=== PATIENT | female | born 1960 | race Caucasian/White ===

== ENCOUNTER 2019-01-17 10:18 | Inpatient (IN) ==
--- NOTE | 2019-01-17 09:43 | Anesthesia Evaluation PreOp ---
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: Other (chronic back pain) Other Medical History: GERD, Other (scleroderma, H/O breasr CA S/P right mastectomy with lymph nodes/chemo) Anesthesia History: No Prior Anesthetic Complications, Past Anesthesia Alcohol Use: occasionally Drug use: none Medications and Allergies Albuterol Sulfate [Proair Hfa] 2 puff IH Q6H PRN 09/13/18 [History] Aspirin [Lo-Dose Aspirin EC] 81 mg PO DAILY 09/13/18 [History] Beclomethasone Dip 40mcg REDIH [Qvar 40 Mcg Redihaler] 1 puff IH BID 09/13/18 [History] Diltiazem HCl [Diltiazem 24Hr Cd] 180 mg PO DAILY 09/13/18 [History] Omeprazole [PriLOSEC] 40 mg PO DAILY 09/13/18 [History] Oxycodone HCl/Acetaminophen [Percocet 10-325 mg Tablet] 1 each PO Q6H PRN 09/13/18 [History] Tizanidine HCl [Zanaflex] 4 mg PO TID PRN 09/13/18 [History] Nicotine Polacrilex [Nicorelief] 1 piece gum PO AD PRN 12/31/18 [History] Azithromycin [Azithromycin 6-Tab Pack] 250 mg PO PER PKG DI #6 tab 01/09/19 [Rx] predniSONE [PredniSONE] 10 mg PO DAILY #21 tablet 01/09/19 [Rx] Allergy/AdvReac Type Severity Reaction Status Date / Time Penicillins AdvReac Rash Verified 01/17/19 11:27 - Meds/Allergy Pre-op Review Medications Reviewed: Yes Allergies Reviewed: Yes Beta Blockers on Current Med List: No Anesthesia Results - Labs Laboratory Tests 12/18/18 01/07/19 01/07/19 10:51 19:37 19:39 WBC 14.1 H Hgb 12.5 Hct 38.9 Plt Count 211 PT 11.3 INR 1.0 Sodium 136 Potassium 3.8 BUN 12 Creatinine 0.72 - Imaging Additional studies: 12/18/[address] IMPRESSION: Successful CT guided core biopsy left lower lobe lung 10/23/[address] IMPRESSION: 1. Increasing size of a part solid part cavitary nodule in the left lower lobe measuring 12 x 7 mm, previously 9 x 7 mm. There has also been slight interval increase in size of right lower lobe lateral pulmonary nodular opacity measuring up to 9 mm. Although an infectious process could be a possibility, neoplasm should be excluded. 2. Otherwise stable subcentimeter right pulmonary nodules. 3. Persistent dilated and fluid-filled esophagus. The findings were sent to the Radiology Results Communication [facility] at 3:50 pm on 10/23/2018 to be communicated to a licensed caregiver. 09/13/2018 RIGHT HEART CATH Indications: Pulmonary Hypertension Impressions: Normal right heart pressures noted. Normal cardiac output noted. Recommendations: Optimal medical therapy of patient's disease. Aggressive risk factor modification. 05/22/2018 [facility] ECG showed normal sinus rhythm TTE: EF 60%, MG 10, no AI----post-op TTE showed EF 60%, 10 mmHg, no PVL 01/12/2018 LEN Impressions: LVEF 60-65%. Normal LV size and function. Right ventricle was normal in size and systolic function. Moderately calcified, trileafet aortic valve. Partial fusion of the right and left cusps. Incomplete coaptation of leaflets noted. Severe aortic regurgitation. PHT not well obtained. 12/15/2017 Echo Impressions: LVEF 60-65%. Normal LV chamber size, wall thickness and function. Mild left ventricular diastolic dysfunction. Normal right ventricular structure and function. Grossly, moderately calcified aortic valve leaflets. Number of leaflets cannot be determined. Probable severe aortic regurgitation. Moderate aortic stenosis. Mean gradient 33 mmHg. Unable to estimate RVSP due to lack of TR jet. Consider further evaluation of aortic valve if clinically indicated. Aortic Valve Peak José: 3.99 m/sec Mean José: 2.63 m/sec Peak Grad: 64.00 mmHg Mean Grad: 32.33 mmHg Valve Area: 1.08 cm2 AI pressure Half-time: 226.00 msec Anesthesia Exam O2 Sat Height 1.52 m Height 1.52 m Weight 42.638 kg Weight 42.638 kg O2 Sat by Pulse Oximetry 98 O2 Sat by Pulse Oximetry 98 Vital Signs Temp Pulse Resp BP Pulse Ox 98.6 F 89 16 142/70 98 01/17/19 10:58 01/17/19 10:58 01/17/19 10:58 01/17/19 10:58 01/17/19 10:58 Height: 5' Weight: 94 lbs NPO (# of Hours): 8 Pain Scale: 0 Pain Scale Used: Numeric (1 - 10) - HEENT Pupil (Motor): EOMI Mallampati: II Teeth: Normal, Missing Oral Opening: Greater than 3 - EDGE BURN[place]ER UPPERS LOC: Oriented EDGE [place]URN[place] UPPERS Motor: Normal RUE, Normal LUE, Normal RLE, Normal LLE, Normal Face EDGE [place]URN[place] UPPERS Sensory: Normal: RUE, LUE, RLE, LLE, Face - Cardiac Rhythm: Regular Murmur: Systolic - Pulmonary Breath Sounds: bilateral Clear Respiratory Effort: Symmetrical Anesthesia Assess/Plan ASA Score: 3 Level of consciousness: Cooperative, Oriented, Tranquil Anesthetic Plan: General Monitoring Plan: Standard Monitors Recovery Plan: PACU
[2019-01-17] MEDS ORDERED: *HR* Propofol 200 MG/20 ML VIAL IVP ONE (10:33)
[2019-01-17] MEDS ORDERED: *HR* FentaNYL (PF) 100 MCG/2 ML VIAL ONE (10:33)
[2019-01-17] MEDS ORDERED: *HR* Midazolam HCl 2 MG/2 ML VIAL ONE (10:33)
[2019-01-17] MEDS ORDERED: *HR* Rocuronium Bromide 50 MG/5 ML VIAL ONE ×2 (10:35→14:15)
[2019-01-17] MEDS ORDERED: *HR* Succinylcholine 200 MG/10 ML VIAL IVP ONE (10:35)
[2019-01-17] MEDS ORDERED: Ondansetron 4 MG/2 ML VIAL ONE (10:35)
[2019-01-17] MEDS ORDERED: Lidocaine -MPF 4% 5 ML AMPUL ONE ×2 (10:35→13:30)
[2019-01-17] MEDS ORDERED: Lidocaine -MPF 2% 2 ML VIAL ONE (10:35)
[2019-01-17] MEDS ORDERED: Dexamethasone 4 MG/ML VIAL ONE (10:35)
[2019-01-17] MEDS ORDERED: Ketorolac 30 MG/ML VIAL ONE (10:37)
[2019-01-17] MEDS ORDERED: Albuterol 2.5 MG/3 ML NEBULIZER IH ONE (10:40)
[2019-01-17] MEDS ORDERED: Clindamycin 600 MG/50 ML 600 MG/50 ML IV.SOLN IVPB ONE (10:45)
[2019-01-17] MEDS ORDERED: Ringers Solution, Lactated 1,000 ML IVC SCH (10:45)
[2019-01-17] MEDS ORDERED: *HR* OxyCODONE Immed Rel 5 MG TABLET PO PRN (11:58)
[2019-01-17] MEDS ORDERED: *HR* Promethazine 25 MG/ML VIAL IVP PRN (11:58)
[2019-01-17] MEDS ORDERED: Ondansetron 4 MG/2 ML VIAL IVP ONE (11:58)
--- NOTE | 2019-01-17 12:22 | History & Physical Report ---
Date of Encounter: 01/17/19 Time of Encounter: 12:21 24 Hour HP Update - Instructions Instructions: If the History and Physical is less than 30 days old and was completed prior to A.M. admission and or procedure and has NOT been updated on calendar day of procedure please complete this update prior to performing procedure. - Update Patient reports changes in Medical Condition: No Changes in examination, assessment, or condition: No Changes in Medication: No Preop tests/diagnostics Reviewed: Yes Pre-Op MRSA Screen: Negative Surgery Remains Indicated: Yes Consent for Planned Operative Procedure(s) Verified: Yes - Pre-Operative Checklist Preoperative Checklist Indicated: Yes Prophylactic Antibiotic Ordered: Yes Home Medications Include Beta Jonathan: No Beta Jonathan Taken Today (Day of Surgery): No Beta Jonathan Taken Yesterday (Day Prior to Surgery): No Is VTE Prophylaxis Indicated?: Yes
[2019-01-17] MEDS: *HR* HYDROmorphone (PF) 1 MG/ML SYRINGE IVP PRN ×5 (15:35→20:36)
--- NOTE | 2019-01-17 15:43 | Operative Note ---
Date of procedure: 01/17/19 Pre-op diagnosis: lung mass Post-op diagnosis: other (nec granuloma) Procedure: bronch with aspi, robotic decortication, lower lobectomy, lymph node dissection, wedge resection upper lobe x 3 Anesthesia: GETA Surgeon: Raheem Kumar Was there an training and development assistant present: No Estimated blood loss (cc): 75 Specimen: lower lobe, wedge upper lobe x 3, nodes Condition: stable Disposition: PACU Procedure in Detail: The patient was brought to the operating room and placed on the operating table in the supine position. After undergoing general anesthesia bronchoscopy was performed and thick copious secretions aspirated from the tracheobronchial tree until clear. The mucosa throughout the tracheobronchial tree was pink. There were no endoluminal masses or extrinsic compression of the trachea kota mainstem lobar or segmental bronchi. Patient was placed on the operating room table in the right lateral decubitus position with care to pad all pressure points, prepped with DuraPrep, and draped in usual sterile fashion. Thoracoscopy ports were placed and 50% of the case was used to take down and perform a decortication of the left upper and lower lobe off the chest wall mediastinum diaphragm and aorta. The pulmonary artery vein bronchus and fissure completed in sequence and the lobectomy removed from the accessory port. Lymph node dissection was performed including nodes 8 910 and 12. The centrally located mass within the left lower lobe demonstrated necrotizing granulomatous disease frozen section. Hemostasis and hemostasis were good. Paravertebral nerve blocks were performed. We wedge resections of the left upper lobe performed with the endothoracic stapler due to visceral pleura was denuded and small lacerations within the left upper lobe due to the dense adhesions within the chest during the decortication and the friable nature of the anal the/emphysematous lung tissues. A 28-Filipino chest tube placed through the most anterior thoracoscopy port the da Giovani robot was de-docked. Remaining incisions closed with 0 Vicryl and 4-0 Monocryl subcuticular stitches with dressings consisting of Steri-Strips and sterile gauze. Patient was extubated and taken to the recovery room.
[2019-01-17] MEDS ORDERED: Azithromycin 250 MG TABLET PO ONE (16:44)
[2019-01-17] MEDS ORDERED: *HR* HYDROcodone/Acet 5/325 mg TABLET PO PRN (16:44)
[2019-01-17] MEDS ORDERED: Ondansetron 4 MG/2 ML VIAL IVP PRN (16:44)
[2019-01-17] MEDS ORDERED: Naloxone 0.4 MG/ML INJ IVP PRN (16:44)
--- NOTE | 2019-01-17 16:53 | Anesthesia Evaluation Post Op ---
Date of Encounter: 01/17/19 Time of Encounter: 16:33 - Vital Signs Vital Signs: Vital Signs/O2 Sat, Most Current Temp Pulse Resp BP Pulse Ox 98.4 F 74 16 130/66 96 01/17/19 16:30 01/17/19 16:30 01/17/19 16:30 01/17/19 16:30 01/17/19 16:30 - Lungs Lungs: Clear Ascult./Percussion - Airway Airway: Non-obstructed - Cardiovascular Regular Rate - Mental Status Mental Status: Alert & Oriented, Answers Appropriately - Pain Pain Scale: 3 Pain Scale used: Numeric (1 - 10) - Nausea Vomiting Nausea Vomiting: Not Present - Hydration Hydration: Ice chips, Has not voided - Discharge PostOp Status: Transfer Patient to floor
[2019-01-17] MEDS: 0.9 % Sodium Chloride 1,000 ML IVC SCH (17:00)
[2019-01-17] MEDS: Ketorolac 15 MG/ML VIAL IVP SCH (17:32)
[2019-01-17] MEDS: Ipratropium/Albuterol Neb 3 ML IH SCH ×3 (20:02→23:23)
[2019-01-17] MEDS: Sennosides/Docusate Sodium TABLET PO SCH (21:45)
[2019-01-17] MEDS: Gabapentin 300 MG CAPSULE PO SCH (21:45)
[2019-01-17] MEDS: Famotidine 20 MG TABLET PO SCH (21:45)
[2019-01-17] MEDS: *HR* OxyCODONE/APAP 10/325 TABLET PO PRN (22:10)
[2019-01-17] MEDS: *HR* Heparin 5,000 UNIT/ML VIAL SQ SCH (22:14)
[2019-01-18] MEDS: Ketorolac 15 MG/ML VIAL IVP SCH ×5 (00:19→23:59)
[2019-01-18] MEDS: *HR* OxyCODONE/APAP 10/325 TABLET PO PRN ×4 (03:13→19:42)
[2019-01-18] MEDS: *HR* HYDROmorphone (PF) 1 MG/ML SYRINGE IVP PRN ×5 (03:32→21:32)
[2019-01-18] MEDS: Ipratropium/Albuterol Neb 3 ML IH SCH ×6 (04:47→23:27)
[2019-01-18] MEDS: 0.9 % Sodium Chloride 1,000 ML IVC SCH (06:16)
[2019-01-18] MEDS: *HR* Heparin 5,000 UNIT/ML VIAL SQ SCH ×3 (06:22→21:28)
[2019-01-18 06:52] LABS: Hematocrit 31.2 % (35.3-44.9); Hemoglobin 9.8 g/dL (11.5-15.4); Mean Corpuscular HGB Conc 31.4 g/dL (31.6-35.5); Mean Corpuscular Hemoglobin 29.5 pg (28.0-33.3); Mean Platelet Volume 10.3 fL (9.4-12.4); Platelet Count 188 K/mcL (140-400); Red Blood Count 3.32 M/mcL (3.82-4.97); White Blood Count 19.8 K/mcL (4.3-11.1)
[2019-01-18 07:42] LABS: BUN/Creatinine Ratio 24 (6-26); Blood Urea Nitrogen 18 mg/dL (6-20); Calcium 8.1 mg/dL (8.6-10.3); Carbon Dioxide 22 mEq/L (23-29); Chloride 106 mEq/L (98-107); Glucose 220 mg/dL (70-105); Magnesium 1.9 mg/dL (1.6-2.6); Osmolality,Calculated 293 (280-300); Potassium 4.1 mEq/L (3.5-5.1); Sodium 137 mEq/L (136-145); eGFR For African Americans > 60 (> 60); eGFR For Non-African Americans > 60 (> 60)
[2019-01-18] MEDS: amLODIPine 5 MG TABLET PO SCH (08:07)
[2019-01-18] MEDS: Famotidine 20 MG TABLET PO SCH ×2 (08:07→21:27)
[2019-01-18] MEDS: Sennosides/Docusate Sodium TABLET PO SCH ×2 (08:07→21:27)
[2019-01-18] MEDS: Gabapentin 300 MG CAPSULE PO SCH ×3 (08:07→21:27)
[2019-01-18] MEDS: Aspirin Enteric Coated 81 MG Tablet PO SCH (08:07)
[2019-01-18] MEDS: Diltiazem CD (24hr) 180 MG CAPSULE PO SCH (08:07)
--- NOTE | 2019-01-18 10:48 | Cardiothoracic Progress Note ---
Date of Encounter: 01/18/19 Time of Encounter: 10:47 - Assessment and plan (1) Histoplasmosis Current Visit: Yes Status: Acute The assessment and plan as outlined above was discussed with the patient and/or family members who expressed understanding and agreement. All questions were answered. updated family. continue chest tube to suction replace mg (2) Essential hypertension Current Visit: No Status: Chronic The assessment and plan as outlined above was discussed with the patient and/or family members who expressed understanding and agreement. All questions were answered. continue home meds (3) Chronic pain Current Visit: No Status: Chronic The assessment and plan as outlined above was discussed with the patient and/or family members who expressed understanding and agreement. All questions were answered. increase meds from baseline. Qualifiers: Chronic pain type: chronic pain syndrome Qualified Code(s): G89.4 - Chronic pain syndrome (4) Depression Current Visit: No Status: Chronic The assessment and plan as outlined above was discussed with the patient and/or family members who expressed understanding and agreement. All questions were answered. Qualifiers: Depression Type: unspecified Qualified Code(s): F32.9 - Major depressive disorder, single episode, unspecified - Subjective Interval history: pain Vital Signs, Last 4 Hours Temp Pulse Resp BP Pulse Ox 01/18/19 08:20 90 01/18/19 07:26 16 98 01/18/19 07:22 99.0 F 87 18 124/71 97 Oxgyen Flow Rate Oxygen Flow Rate (LPM) 2 Clinical Data, last 8 Hours Output, Chest Tube Drainage 0 Amount [Left Lateral Chest #1] Output, Chest Tube Drainage 0 Amount [Left Lateral Chest #1] Output, Urine Amount 200 Output, Urine Amount 500 Weight 01/16/19 01/17/19 01/18/19 23:59 23:59 23:59 Weight 42.638 kg 52.5 kg - Physical Examination General: Conversant, No Apparent Distress, Well developed HEENT: Atraumatic, Normocephaly Cardiac: Reg Rate and Rhythm, Normal S1 and S2, No Murmur Incision: No signs of infection, Dry/intact dressing Chest tubes: Minimal drainage, Air leak Lungs: Decreased breath sounds Neuro: Alert and responsive, No focal deficits noted Abdomen: Soft, Other (scant bs ) - Labs 01/18/19 06:25 01/18/19 06:25 Lab Results, Last 24 hours 01/18/19 01/18/19 06:25 06:25 WBC 19.8 H Hgb 9.8 L Hct 31.2 L Plt Count 188 Sodium 137 Potassium 4.1 Chloride 106 Carbon Dioxide 22 L BUN 18 Creatinine 0.76 Glucose 220 H Calcium 8.1 L Magnesium 1.9 - Imaging Chest Xray: image reviewed Consult Discharge Plan - Plan Additional Instructions: Please go to Out Patient testing on 2018 around 800AM to get an x-ray done before you go see Dr. Kumar. The office is sending the order over to out patient testing at the [facility]. Referrals: Raheem Kumar MD [Partnered Physician] - 02/18/19 9:15 am Christina Cazares MD [Primary Care Provider] - 01/29/19 10:30 am
[2019-01-19] MEDS: Ipratropium/Albuterol Neb 3 ML IH SCH ×6 (04:03→23:26)
[2019-01-19] MEDS: *HR* OxyCODONE/APAP 10/325 TABLET PO PRN ×4 (04:05→23:55)
[2019-01-19] MEDS: Ketorolac 15 MG/ML VIAL IVP SCH ×4 (06:02→18:12)
[2019-01-19] MEDS: *HR* Heparin 5,000 UNIT/ML VIAL SQ SCH ×2 (06:05→16:44)
--- NOTE | 2019-01-19 08:18 | Cardiothoracic Progress Note ---
Date of Encounter: 01/19/19 Time of Encounter: 08:16 - Assessment and plan (1) Chronic pain Current Visit: No Status: Chronic The assessment and plan as outlined above was discussed with the patient and/or family members who expressed understanding and agreement. All questions were answered. We will leave the chest tube in throughout the weekend. Qualifiers: Chronic pain type: chronic pain syndrome Qualified Code(s): G89.4 - Chronic pain syndrome - Subjective Interval history: The patient complains of mild postoperative pain. Vital Signs, Last 4 Hours Temp Pulse Resp BP Pulse Ox 01/19/19 08:06 98.2 F 82 18 127/72 99 01/19/19 08:01 16 95 Oxgyen Flow Rate Oxygen Flow Rate (LPM) 2 Clinical Data, last 8 Hours Output, Chest Tube Drainage 10 Amount [Left Lateral Chest #1] Output, Urine Amount 250 Output, Urine Amount 200 Weight 01/17/19 01/18/19 01/19/19 23:59 23:59 23:59 Weight 42.638 kg 52.5 kg Lungs are clear to percussion and auscultation. Heart is in a normal sinus rhythm. Chest tube drainage is minimal, but there is a small air leak. All incisions are healing well without signs of infection. - Labs 01/18/19 06:25 01/18/19 06:25 Consult Discharge Plan - Plan Additional Instructions: Please go to Out Patient testing on 2018 around 800AM to get an x-ray done before you go see Dr. Kumar. The office is sending the order over to out patient testing at the [facility]. Referrals: Raheem Kumar MD [Partnered Physician] - 02/18/19 9:15 am Christina Cazares MD [Primary Care Provider] - 01/29/19 10:30 am
[2019-01-19] MEDS: Aspirin Enteric Coated 81 MG Tablet PO SCH (08:41)
[2019-01-19] MEDS: Diltiazem CD (24hr) 180 MG CAPSULE PO SCH (08:41)
[2019-01-19] MEDS: Sennosides/Docusate Sodium TABLET PO SCH ×2 (08:41→19:53)
[2019-01-19] MEDS: amLODIPine 5 MG TABLET PO SCH (08:41)
[2019-01-19] MEDS: Famotidine 20 MG TABLET PO SCH ×2 (08:41→19:53)
[2019-01-19] MEDS: Gabapentin 300 MG CAPSULE PO SCH ×3 (08:41→19:53)
[2019-01-19] MEDS: *HR* HYDROmorphone (PF) 1 MG/ML SYRINGE IVP PRN ×2 (08:53→15:12)
[2019-01-19] MEDS ORDERED: Furosemide 20 MG/2 ML VIAL IVP ONE (18:47)
[2019-01-19] MEDS: ALPRAZolam 0.5 MG TABLET PO PRN (19:53)
[2019-01-20] MEDS: *HR* Heparin 5,000 UNIT/ML VIAL SQ SCH ×4 (00:01→22:50)
[2019-01-20] MEDS ORDERED: Albuterol 2.5 MG/3 ML NEBULIZER IH PRN (01:39)
[2019-01-20 02:16] LABS: Basophils % 0.1 %; Eosinophils # 0.6 K/mcL (0.0-0.6); Eosinophils % 2.2 %; Hematocrit 24.8 % (35.3-44.9); Immature Granulocytes % 0.8 % (0-4); Lymphocytes # 2.3 K/mcL (0.6-4.6); Lymphocytes % 8.7 %; Mean Corpuscular HGB Conc 31.9 g/dL (31.6-35.5); Mean Corpuscular Hemoglobin 29.4 pg (28.0-33.3); Mean Corpuscular Volume 92.2 fL (83.0-100.0); Mean Platelet Volume 10.3 fL (9.4-12.4); Monocytes # 0.8 K/mcL (0.0-1.3); Monocytes % 3.2 %; Neutrophils # 22.4 K/mcL (1.6-8.9); Platelet Count 176 K/mcL (140-400); Red Blood Count 2.69 M/mcL (3.82-4.97); Red Cell Distribution Width 14.7 % (11.5-14.5); White Blood Count 26.4 K/mcL (4.3-11.1)
[2019-01-20 02:17] LABS: Hemoglobin 7.9 g/dL (11.5-15.4)
--- NOTE | 2019-01-20 02:18 | Internal Medicine Consult Note ---
Date of Encounter: 01/20/19 Time of Encounter: 02:11 - Assessment and Plan (1) Acute hypoxemic respiratory failure Current Visit: Yes Status: Acute Assessment and plan: 1. Move patient to ICU. 2. Start BiPap trial and proceed with intubation if she fails. 3. Aerosols, oxygen, and suctioning as needed. 4. Continue chest tube to suction. 5. Consult pulmonary. 6. Discussed with Dr. Buckley. (2) Pneumonia Current Visit: Yes Status: Acute Assessment and plan: 1. Blood and sputum cultures ordered. 2. Start Vancomycin and Levaquin. 3. Aerosols, mucomyst, oxygen supplementation as above. 4. BiPap support followed by intubation if necessary. Qualifiers: Pneumonia type: due to unspecified organism Laterality: right Lung location: middle lobe of lung Qualified Code(s): J18.1 - Lobar pneumonia, unspecified organism (3) Current chronic use of systemic steroids Current Visit: Yes Status: Acute Assessment and plan: 1. Will add Solumedrol for stress dose steroids; wean once patient improves and stabilizes. 2. Resume home dose of prednisone after weaning off Solumedrol. (4) DVT prophylaxis Current Visit: Yes Status: Acute Assessment and plan: 1. Heparin SQ. 2. EPCD's. Internal Medicine - CN: HPI - Data of Consult Requesting Physician: Raheem Kumar MD - Consult Narrative History of present illness: Ms. Tran is a 58 year old female who is 2-1/2 days postop from left lower lobe lobectomy for suspected lung cancer. I was contacted by Dr. Buckley to see patient regarding hypoxemia and respiratory distress. Upon my assessment of the patient, she is on 100% nonrebreather face mask with O2 sats running between 80- 90%. Her oxygen levels drop precipitously and then take a significant amount of time to recover. She is coughing vigorously. She is not wheezing. On auscultation, she has significant crackles, predominantly in the right base. She has some labored breathing. Chest tube is in place and on suction. I reviewed her x-ray, and I am suspicious that she has a right middle and right lower lobe pneumonia. She already received 1 dose of Lasix with over 500 mL of urine output. Despite the Lasix and urine output, she continues to desaturate. Because of worsening respiratory status, concern for pneumonia both clinically and radiographically, and failure to improve with oxygen supplementation, I am moving her to the intensive care unit for closer monitoring and care. I called and spoke with Dr. Buckley about placing her on BiPAP versus intubation given her recent lobectomy. He agreed with my plan to proceed with BiPAP and then intubation if necessary. Patient is therefore moving to the ICU for ongoing care and management. Past Med Surg Social Fam HX - Past Medical History Attestation: Yes The following information was validated with the patient. Source: patient, obtained from family Medical history: arthritis, cancer, COPD, GERD, hypertension, valvular heart disease Psychiatric history: anxiety, depression - Past Surgical History Surgical History: breast surgery, heart valve replacement, hysterectomy, orthopedic, other - Social History Smoking Status: Current every day smoker Packs per day: 2 Smokeless Tobacco Status: No Alcohol use: occasionally Drug use: none Current living situation: Home, With Family Activity Level: Independent ambulation Recent Out of Country Travel Within the Last 8 Weeks: No - Family History Mother History Unknown: Yes Father History Unknown: Yes - Constitutional Constitutional: fatigue, no chills, no fever(s) - EENT Ears: no ear pain Nose, mouth and throat: no nasal congestion, no sore throat - Cardiovascular Cardiovascular ROS IM: palpitations, no chest pain - Respiratory Respiratory: cough, dyspnea, chest congestion, change in phlegm color, no hemop tysis - Gastrointestinal Gastrointestinal: no abdominal pain, no diarrhea, no hematemesis, no hematochezia, no melena, no vomiting - Genitourinary Genitourinary: no dysuria, no flank pain - Musculoskeletal Musculoskeletal ROS IM: no arthralgias, no back pain - Integumentary Integumentary IM: no rash, no jaundice - Neurological Neurological ROS: no focal weakness, no headache(s) - Endocrine Endocrine IM: no polyphagia, no polyuria Internal Medicine - CN: Meds Albuterol Sulfate [Proair Hfa] 2 puff IH Q6H PRN 09/13/18 [History] Aspirin [Lo-Dose Aspirin EC] 81 mg PO DAILY 09/13/18 [History] Omeprazole [PriLOSEC] 40 mg PO DAILY 09/13/18 [History] Oxycodone HCl/Acetaminophen [Percocet 10-325 mg Tablet] 1 each PO Q6H PRN 09/13/18 [History] Tizanidine HCl [Zanaflex] 4 mg PO HS PRN 09/13/18 [History] Azithromycin [Azithromycin 6-Tab Pack] 250 mg PO PER PKG DI #6 tab 01/09/19 [Rx] predniSONE [PredniSONE] 10 mg PO DAILY #21 tablet 01/09/19 [Rx] Amlodipine Besylate 5 mg PO QAM 01/17/19 [History] Dexlansoprazole [Dexilant] 60 mg PO DAILY 01/17/19 [History] Diltiazem HCl [Tiazac] 180 mg PO QAM 01/17/19 [History] Escitalopram [Lexapro] 20 mg PO DAILY 01/17/19 [History] Meclizine HCl [Verticalm] 25 mg PO PRN PRN 01/17/19 [History] Tiotropium [place] [Spiriva Respimat] 2 puff PO DAILY 01/17/19 [History] Allergy/AdvReac Type Severity Reaction Status Date / Time Penicillins AdvReac Rash Verified 01/17/19 11:27 Hospitalist - CN: Exam - Constitutional Vitals: Temp Pulse Resp BP Pulse Ox 98.4 F 95 17 140/78 89 01/19/19 23:44 01/19/19 23:44 01/19/19 23:44 01/19/19 23:44 01/19/19 23:44 General appearance IM: Present: cooperative, mild distress (mild to moderate re spiratory distress), A&O X 3, pleasant, answers questions appropriately Exam: labored breathing - Head Head exam: Present: atraumatic, normal inspection - Eye Eye exam: Present: PERRL. Absent: scleral icterus - ENT ENT exam: Present: mucous membranes dry, normal exam - Neck Neck exam general surgery: Present: supple, trachea midline. Absent: tenderness, nuchal rigidity, thyromegaly - Respiratory Respiratory exam: Present: accessory muscle use, rales (right base), respiratory distress, rhonchi, tachypnea. Absent: chest wall tenderness, wheezes - Cardiovascular Cardiovascular exam IM: Present: distant heart sounds, +S1, +S2, systolic murmur, tachycardia. Absent: diastolic murmur - GI/Abdominal GI/Abdominal exam IM: Present: normal bowel sounds, soft. Absent: hepatomegaly, mass, splenomegaly, tenderness - Extremities Exam Extremities exam IM: Present: full ROM, normal capillary refill, warm, radial pulses palpable and symmetrical. Absent: calf tenderness, joint swelling, pedal edema, tenderness - Back Exam Back exam: Absent: CVA tenderness (L), CVA tenderness (R) - Neurological Exam Neurological exam: Present: alert, CN II-XII intact, oriented X3, no focal defi cits, strengths equal and symetr throughout - Psychiatric Psychiatric exam: Present: normal affect, normal mood - Skin Skin exam IM: Present: dry, intact, warm Internal Medicine - CN: Reslt - Labs CBC & Chem 7: 01/18/19 06:25 01/18/19 06:25 - Impressions Impressions Chest X-Ray 01/19/19 19:12 IMPRESSION: 1. Vascular engorgement and cephalization is demonstrated with bilateral peribronchial cuffing and perivascular haziness. 2. New hazy alveolar density mid lower right lung and left parahilar region and left lung base concerning for infiltrate correlating with congestive heart failure or pneumonitis. 3. Left pleural effusion versus chronic pleural thickening. 4. Postsurgical sequela left lung and heart. 5. Calcific atherosclerotic disease aorta. 6. Stable left pleural catheter with no appreciable pneumothorax. D/ / Tanner Carlton / Tanner Carlton Interpreting Provider: Tanner Carlton - Diagnostic Studies Chest x-ray Status: image reviewed by me (suspect RML/RLL infiltrate) Consult Discharge Plan - Plan Additional Instructions: Please go to Out Patient testing on 2018 around 800AM to get an x-ray done before you go see Dr. Kumar. The office is sending the order over to out patient testing at the main hospital. Referrals: Raheem Kumar MD [Partnered Physician] - 02/18/19 9:15 am Christina Cazares MD [Primary Care Provider] - 01/29/19 10:30 am
[2019-01-20 02:19] LABS: ABG Base Excess 0 mEq/L (-2 to 3); ABG HCO3 25 mEq/L (21-27); ABG Oxygen Saturation 83 % (95-98); ABG PCO2 46 mmHg (35-45); ABG PH 7.35 pH Units (7.32-7.45); ABG PO2 50 mmHg (85-104); ABG TCO2 27 mEq/L (20-26)
[2019-01-20 02:36] LABS: BUN/Creatinine Ratio 21 (6-26); Blood Urea Nitrogen 19 mg/dL (6-20); Calcium 8.1 mg/dL (8.6-10.3); Carbon Dioxide 24 mEq/L (23-29); Chloride 97 mEq/L (98-107); Glucose 119 mg/dL (70-105); Osmolality,Calculated 269 (280-300); Potassium 4.7 mEq/L (3.5-5.1); Sodium 128 mEq/L (136-145); eGFR For African Americans > 60 (> 60); eGFR For Non-African Americans > 60 (> 60)
[2019-01-20 02:59] LABS: Platelet Estimate Normal (Normal); Toxic Granulation Present (Not Present)
[2019-01-20] MEDS: methylPREDNISolone 125 MG/2 ML VIAL IVP SCH ×4 (03:38→22:58)
[2019-01-20] MEDS: Acetylcysteine 10% 2 ML INHSOL IH SCH ×6 (04:12→23:25)
[2019-01-20] MEDS: Ipratropium/Albuterol Neb 3 ML IH SCH ×6 (04:12→23:25)
[2019-01-20] MEDS ORDERED: Furosemide 20 MG/2 ML VIAL IVP ONE (07:49)
[2019-01-20] MEDS ORDERED: Cefepime HCl 2,000 MG in Water for inj. (sterile) 20 ML IVP SCH (08:00)
[2019-01-20] MEDS: Ketorolac 15 MG/ML VIAL IVP SCH ×4 (08:04→22:58)
[2019-01-20] MEDS: Aspirin Enteric Coated 81 MG Tablet PO SCH (08:11)
[2019-01-20] MEDS: Sennosides/Docusate Sodium TABLET PO SCH ×2 (08:11→20:31)
[2019-01-20] MEDS: Famotidine 20 MG TABLET PO SCH ×2 (08:12→20:31)
[2019-01-20] MEDS: amLODIPine 5 MG TABLET PO SCH (08:12)
[2019-01-20] MEDS: Gabapentin 300 MG CAPSULE PO SCH ×3 (08:12→20:31)
[2019-01-20] MEDS: MetroNIDAZOLE 500 MG/100 ML 500 MG/100 ML BAG IVPB SCH ×3 (08:12→22:58)
[2019-01-20] MEDS: Diltiazem CD (24hr) 180 MG CAPSULE PO SCH (08:12)
[2019-01-20 08:23] LABS: ABG Base Excess 2 mEq/L (-2 to 3); ABG HCO3 27 mEq/L (21-27); ABG Oxygen Saturation 93 % (95-98); ABG PCO2 45 mmHg (35-45); ABG PH 7.39 pH Units (7.32-7.45); ABG PO2 67 mmHg (85-104); ABG TCO2 29 mEq/L (20-26)
[2019-01-20] MEDS: *HR* OxyCODONE/APAP 10/325 TABLET PO PRN ×2 (08:23→16:40)
[2019-01-20] MEDS ORDERED: levoFLOXacin 500 MG/100 ML 500 MG/100 ML BAG IVPB SCH (09:00)
[2019-01-20] MEDS ORDERED: levoFLOXacin 750 MG/150 ML 750 MG/150 ML BAG IVPB SCH (09:00)
--- NOTE | 2019-01-20 09:36 | Cardiothoracic Progress Note ---
Date of Encounter: 01/20/19 Time of Encounter: 09:34 - Assessment and plan (1) Chronic pain Current Visit: No Status: Chronic The patient has an elevated white blood cell count as well as a chest x-ray compatible with right lung pneumonia. Hopefully, she will not need to be intubated. She has been started on antibiotics. She will be monitored in the ICU. Qualifiers: Chronic pain type: chronic pain syndrome Qualified Code(s): G89.4 - Chronic pain syndrome - Subjective Interval history: The patient developed worsening oxygenation last night and required increasing amounts of inspired oxygen. She was treated with BiPAP and was seen by the hospitalist. Chest x-ray revealed probable pneumonia throughout the right lung field as well as slight fluid overload. She did receive 1 dose of IV Lasix. She was transferred to the ICU. Pulmonology has been consulted and have seen the patient. She is still excavated. She is on positive pressure ventilation. Her left chest tube is been placed back to suction. She has no complaints. Vital Signs, Last 4 Hours Temp Pulse Resp BP Pulse Ox 01/20/19 08:00 98.1 F 01/20/19 07:33 16 92 01/20/19 06:00 94 18 149/69 100 Oxgyen Flow Rate Oxygen Flow Rate (LPM) 60 Clinical Data, last 8 Hours Output, Chest Tube Drainage 0 Amount [Left Lateral Chest #1] Output, Chest Tube Drainage 30 Amount [Left Lateral Chest #1] Output, Chest Tube Drainage 480 Amount [Left Lateral Chest #1] Output, Urine Amount 200 Weight 01/18/19 01/19/19 01/20/19 23:59 23:59 23:59 Weight 52.5 kg 43.9 kg Lungs are clear to percussion and auscultation. Heart is in a sinus tachycardia. Chest tube drainage is minimal, but there is a small air leak. Chest x-ray reveals interstitial infiltrate over the right lung field. - Labs 01/20/19 02:03 01/20/19 02:03 Lab Results, Last 24 hours 01/20/19 01/20/19 01/20/19 02:03 02:03 02:03 WBC 26.4 H Hgb 7.9 L D Hct 24.8 L Plt Count 176 Sodium 128 L Potassium 4.7 Chloride 97 L Carbon Dioxide 24 BUN 19 Creatinine 0.89 Glucose 119 H Calcium 8.1 L Magnesium 1.9 Consult Discharge Plan - Plan Additional Instructions: Please go to Out Patient testing on 2018 around 800AM to get an x-ray done before you go see Dr. Kumar. The office is sending the order over to out patient testing at the main hospital. Referrals: Raheem Kumar MD [Partnered Physician] - 02/18/19 9:15 am Christina Cazares MD [Primary Care Provider] - 01/29/19 10:30 am
--- NOTE | 2019-01-20 11:03 | Pulmonology Consult Note ---
Date of Encounter: 01/20/19 Time of Encounter: 09:00 Assessment and Plan (1) Acute hypoxemic respiratory failure Current Visit: Yes Status: Acute Patient at baseline with their worsening acute hypoxemic respiratory failure contributed by diastolic heart failure and underlying hydrostatic pulmonary was playing a role patient has COPD as baseline but pneumonia possible exacerbating the neutrophilic inflammation that is behind COPD exacerbation. To continue high flow nasal cannula if needed noninvasive ventilation will try conservative therapy before considering intubation and mechanical ventilation. Patient says she is feeling a lot better than the night. (2) Pneumonia Current Visit: Yes Status: Acute I agree with broad-spectrum antibiotics started by the hospitalist team to send for culture sputum and sensitivity. Qualifiers: Pneumonia type: due to unspecified organism Laterality: right Lung location: middle lobe of lung Qualified Code(s): J18.1 - Lobar pneumonia, unspecified organism (3) Congestive heart failure (CHF) Current Visit: Yes Status: Acute Patient has signs and symptoms of acute on chronic congestive heart failure patient and the previous echo has diastolic dysfunction with dilated left atrium consistent with diastolic heart failure. Patient is getting dialysis will r eplace elsewise according the electrolyte protocol. Qualifiers: Heart failure chronicity: acute on chronic Qualified Code(s): I50.33 - Acute on chronic diastolic (congestive) heart failure (4) DVT prophylaxis Current Visit: Yes Status: Acute Continue the current regimen. History of Present Illness Consult date: 01/20/19 Requesting physician: Prabhakar Roy Reason for consult: dyspnea Chief complaint: Shortness of breath with worsening oxygenation. History of present illness: 58-year-old female with past medical history of diastolic heart failure, COPD, scleroderma was admitted to the hospital for left lower lobe registration for suspected malignancy pathology pending. Patient was 2 days postop patient was recovering well developed worsening of acute hypoxic respiratory failure needing higher oxygen requirement and my need noninvasive ventilation if does not improve will need a mechanical ventilation for this worsening hypoxic respiratory failure. Patient was transferred to ICU for possible intubation and mechanical ventilation. Pulmonary was consult that for management of acute hypoxic respiratory failure Past Med Surg Social Fam HX - Past Medical History Medical history: arthritis, cancer, COPD, GERD, hypertension, valvular heart disease Psychiatric history: anxiety, depression - Past Surgical History Surgical History: breast surgery, heart valve replacement, hysterectomy, orthopedic, other - Social History Smoking Status: Current every day smoker Packs per day: 2 Smokeless Tobacco Status: No Alcohol use: occasionally Drug use: none - Family History Mother History Unknown: Yes Father History Unknown: Yes Medications and Allergies Albuterol Sulfate [Proair Hfa] 2 puff IH Q6H PRN 09/13/18 [History] Aspirin [Lo-Dose Aspirin EC] 81 mg PO DAILY 09/13/18 [History] Omeprazole [PriLOSEC] 40 mg PO DAILY 09/13/18 [History] Oxycodone HCl/Acetaminophen [Percocet 10-325 mg Tablet] 1 each PO Q6H PRN [History] Tizanidine HCl [Zanaflex] 4 mg PO HS PRN 09/13/18 [History] Azithromycin [Azithromycin 6-Tab Pack] 250 mg PO PER PKG DI #6 tab 01/09/19 [Rx] predniSONE [PredniSONE] 10 mg PO DAILY #21 tablet 01/09/19 [Rx] Amlodipine Besylate 5 mg PO QAM 01/17/19 [History] Dexlansoprazole [Dexilant] 60 mg PO DAILY 01/17/19 [History] Diltiazem HCl [Tiazac] 180 mg PO QAM 01/17/19 [History] Escitalopram [Lexapro] 20 mg PO DAILY 01/17/19 [History] Meclizine HCl [Verticalm] 25 mg PO PRN PRN 01/17/19 [History] Tiotropium Bow [Spiriva Respimat] 2 puff PO DAILY 01/17/19 [History] Allergy/AdvReac Type Severity Reaction Status Date / Time Penicillins AdvReac Rash Verified 01/17/19 11:27 All Systems: The remainder of the systems were reviewed and are negative Physical Examination Vital Signs: Vital Signs, Last 4 Hours Temp Resp Pulse Ox 01/20/19 08:00 98.1 F 01/20/19 07:33 16 92 General appearance: no acute distress Effort: mildly labored Auscultation: bilateral: rales (Bilateral scattered rales worse on the left side) Cardiovascular: regular rate and rhythm Gastrointestinal: normoactive bowel sounds Extremities: no cyanosis, no edema normal mental status, non-focal exam Results - Laboratory Findings CBC and BMP: 01/20/19 11:06 01/20/19 11:06 ABG ABG pH 7.39 pH Units (7.32-7.45) 01/20/19 08:17 ABG pCO2 45 mmHg (35-45) 01/20/19 08:17 ABG pO2 67 mmHg (85-104) L 01/20/19 08:17 ABG O2 Saturation 93 % (95-98) L 01/20/19 08:17 Abnormal lab findings: Abnormal lab results WBC 26.4 K/mcL (4.3-11.1) H 01/20/19 02:03 RBC 2.69 M/mcL (3.82-4.97) L 01/20/19 02:03 Hgb 7.9 g/dL (11.5-15.4) L D 01/20/19 02:03 Hct 24.8 % (35.3-44.9) L 01/20/19 02:03 MCHC 31.4 g/dL (31.6-35.5) L 01/18/19 06:25 RDW 14.7 % (11.5-14.5) H 01/20/19 02:03 Neutrophils # 22.4 K/mcL (1.6-8.9) H 01/20/19 02:03 Toxic Granulation Present (Not Present) A 01/20/19 02:03 ABG pCO2 46 mmHg (35-45) H 01/20/19 02:13 ABG pO2 67 mmHg (85-104) L 01/20/19 08:17 ABG Total CO2 29 mEq/L (20-26) H 01/20/19 08:17 ABG O2 Saturation 93 % (95-98) L 01/20/19 08:17 Sodium 128 mEq/L (136-145) L 01/20/19 02:03 Chloride 97 mEq/L (98-107) L 01/20/19 02:03 Carbon Dioxide 22 mEq/L (23-29) L 01/18/19 06:25 Glucose 119 mg/dL (70-105) H 01/20/19 02:03 POC Glucose 149 mg/dL (70-99) H 01/20/19 02:48 Calculated Osmolality 269 (280-300) L 01/20/19 02:03 Calcium 8.1 mg/dL (8.6-10.3) L 01/20/19 02:03 - Microbiology Findings Microbiology Findings: Microbiology, Last 48 Hours 01/20/19 02:03 Blood Culture - Preliminary Peripheral Venipuncture Culture is incubating and being continuously monitored for growth. Final report to follow. 01/20/19 01:57 Blood Culture - Preliminary Peripheral Venipuncture Culture is incubating and being continuously monitored for growth. Final report to follow. - Clinical Findings Intake & Output: Intake & Output 01/19/19 01/20/19 01/20/19 23:59 07:59 15:59 Intake Total 700 / 1680 250 / 270 20 / 270 Output Total 390 / 1510 1410 / 2135 725 / 2135 Balance 310 / 170 -1160 / -1865 -705 / -1865 Weight 43.9 kg Consult Discharge Plan - Plan Additional Instructions: Please go to Out Patient testing on 2018 around 800AM to get an x-ray done before you go see Dr. Kumar. The office is sending the order over to out patient testing at the main hospital. Referrals: Raheem Kumar MD [Partnered Physician] - 02/18/19 9:15 am Christina Cazares MD [Primary Care Provider] - 01/29/19 10:30 am
[2019-01-20 11:24] LABS: Basophils % 0.1 %; Hematocrit 22.4 % (35.3-44.9); Hemoglobin 7.3 g/dL (11.5-15.4); Immature Granulocytes % 0.9 % (0-4); Lymphocytes # 0.5 K/mcL (0.6-4.6); Lymphocytes % 2.2 %; Mean Corpuscular HGB Conc 32.6 g/dL (31.6-35.5); Mean Corpuscular Hemoglobin 29.9 pg (28.0-33.3); Mean Corpuscular Volume 91.8 fL (83.0-100.0); Mean Platelet Volume 10.4 fL (9.4-12.4); Monocytes # 0.3 K/mcL (0.0-1.3); Monocytes % 1.3 %; Neutrophils # 23.4 K/mcL (1.6-8.9); Platelet Count 157 K/mcL (140-400); Red Blood Count 2.44 M/mcL (3.82-4.97); Red Cell Distribution Width 14.7 % (11.5-14.5); Segmented Neutrophils % 95.5 %; White Blood Count 24.5 K/mcL (4.3-11.1)
[2019-01-20 11:28] LABS: Platelet Estimate Normal (Normal)
[2019-01-20 11:43] LABS: BUN/Creatinine Ratio 20 (6-26); Blood Urea Nitrogen 16 mg/dL (6-20); Calcium 7.9 mg/dL (8.6-10.3); Carbon Dioxide 27 mEq/L (23-29); Chloride 104 mEq/L (98-107); Glucose 150 mg/dL (70-105); Osmolality,Calculated 272 (280-300); Potassium 4.4 mEq/L (3.5-5.1); Sodium 129 mEq/L (136-145); eGFR For African Americans > 60 (> 60); eGFR For Non-African Americans > 60 (> 60)
--- NOTE | 2019-01-20 12:32 | Event Note ---
Date of Encounter: 01/20/19 Time of Encounter: 07:00 Received sign out from dr Roy this morning. Pt now has consult for Pulm/Crit care and they will be managing resp failure as he d/w ICU attending. Hospitalist team will sign off as strategic solutions consultant at this time.
[2019-01-20] MEDS: ALPRAZolam 0.5 MG TABLET PO PRN (20:31)
[2019-01-20] MEDS: Cefepime HCl 2,000 MG in Water for inj. (sterile) 20 ML IVP SCH (21:48)
[2019-01-21] MEDS: *HR* OxyCODONE/APAP 10/325 TABLET PO PRN ×3 (00:36→17:21)
[2019-01-21 01:12] LABS: Basophils % 0.1 %; Hemoglobin 7.2 g/dL (11.5-15.4); Platelet Count 209 K/mcL (140-400); Red Cell Distribution Width 14.8 % (11.5-14.5)
[2019-01-21 01:13] LABS: Hematocrit 22.6 % (35.3-44.9); Lymphocytes # 0.5 K/mcL (0.6-4.6); Mean Corpuscular HGB Conc 31.9 g/dL (31.6-35.5); Mean Corpuscular Hemoglobin 29.9 pg (28.0-33.3); Mean Corpuscular Volume 93.8 fL (83.0-100.0); Mean Platelet Volume 10.7 fL (9.4-12.4); Monocytes # 0.5 K/mcL (0.0-1.3); Monocytes % 1.9 %; Neutrophils # 24.8 K/mcL (1.6-8.9); Red Blood Count 2.41 M/mcL (3.82-4.97); White Blood Count 26.1 K/mcL (4.3-11.1)
[2019-01-21 01:29] LABS: BUN/Creatinine Ratio 21 (6-26); Blood Urea Nitrogen 16 mg/dL (6-20); Calcium 8.4 mg/dL (8.6-10.3); Carbon Dioxide 27 mEq/L (23-29); Chloride 98 mEq/L (98-107); Glucose 209 mg/dL (70-105); Osmolality,Calculated 283 (280-300); Potassium 3.8 mEq/L (3.5-5.1); Sodium 133 mEq/L (136-145); eGFR For African Americans > 60 (> 60); eGFR For Non-African Americans > 60 (> 60)
[2019-01-21 01:37] LABS: Platelet Estimate Normal (Normal); Polychromasia 1+ (Not Present)
[2019-01-21] MEDS: Acetylcysteine 10% 2 ML INHSOL IH SCH ×2 (03:41→07:48)
[2019-01-21] MEDS: Ipratropium/Albuterol Neb 3 ML IH SCH ×6 (03:41→23:25)
[2019-01-21] MEDS: *HR* Heparin 5,000 UNIT/ML VIAL SQ SCH ×3 (06:11→23:54)
[2019-01-21] MEDS: Ketorolac 15 MG/ML VIAL IVP SCH ×4 (06:12→23:55)
[2019-01-21 07:00] LABS: Red Blood Count 2.35 M/mcL (3.82-4.97)
[2019-01-21 07:02] LABS: Hematocrit 21.9 % (35.3-44.9); Hemoglobin 7.1 g/dL (11.5-15.4); Mean Corpuscular HGB Conc 32.4 g/dL (31.6-35.5); Mean Corpuscular Hemoglobin 30.2 pg (28.0-33.3); Mean Corpuscular Volume 93.2 fL (83.0-100.0); Mean Platelet Volume 10.8 fL (9.4-12.4); Platelet Count 227 K/mcL (140-400); Red Cell Distribution Width 15.2 % (11.5-14.5)
[2019-01-21 07:19] LABS: BUN/Creatinine Ratio 26 (6-26); Blood Urea Nitrogen 17 mg/dL (6-20); Calcium 8.5 mg/dL (8.6-10.3); Carbon Dioxide 28 mEq/L (23-29); Chloride 100 mEq/L (98-107); Glucose 127 mg/dL (70-105); Magnesium 2.4 mg/dL (1.6-2.6); Osmolality,Calculated 285 (280-300); Phosphorous 2.5 mg/dL (2.7-4.5); Potassium 4.4 mEq/L (3.5-5.1); Sodium 136 mEq/L (136-145); eGFR For African Americans > 60 (> 60); eGFR For Non-African Americans > 60 (> 60)
[2019-01-21 07:24] LABS: Monocytes # 0.5 K/mcL (0.0-1.3); Neutrophils # 24.4 K/mcL (1.6-8.9); Platelet Estimate Normal (Normal)
--- NOTE | 2019-01-21 07:51 | Pulmonology Progress Note ---
<Susan Sandoval - Last Filed: 01/21/19 16:49> Date of Encounter: 01/21/19 Time of Encounter: 07:51 Assessment and Plan (1) Acute hypoxemic respiratory failure Current Visit: Yes Status: Acute Pt satting 93% on 60L HFNC S/P LLL lobectomy with histopplasmosis and likely PNA and CHF exacerbation Continue broad spec abx Continue diuresis Pain control Incentive spirometry Continue to monitor respiratory status and wean from oxygen as able (2) Histoplasmosis Current Visit: Yes Status: Acute S/P LLL lobectomy for suspected malignancy Microscopy demonstrates histoplasmosis Continue broad spectrum abx vanc and cefepime day 2 (3) Pneumonia Current Visit: Yes Status: Acute Broad spec abx as above CXR shows stable left sided pneumothorax wih increasing right basilar atelectasis/PNA and improving left sided atelectasis/PNA CXR also demonstrates pulmonary edema Qualifiers: Pneumonia type: due to unspecified organism Laterality: right Lung location: middle lobe of lung Qualified Code(s): J18.1 - Lobar pneumonia, unspecified organism (4) Congestive heart failure (CHF) Current Visit: Yes Status: Acute S/sx of acute on chronic CHF Previous echo dated 12/15/17 shows dialstolic dysfunction with EF of 60-65% and severe aortic regurg Pt has had aortic valve replacement since this echo Continue diuresis for volume overload Qualifiers: Heart failure chronicity: acute on chronic Qualified Code(s): I50.33 - Acute on chronic diastolic (congestive) heart failure (5) Chronic pain Current Visit: No Status: Chronic Pt normally takes Percocet 10 q6H PRN at home Increased to 2 tabs Perc 10 for increased pain s/p LLL lobectomy on 01/17 Wean as patient tolerates back to home dose Qualifiers: Chronic pain type: chronic pain syndrome Qualified Code(s): G89.4 - Chronic pain syndrome (6) Current chronic use of systemic steroids Current Visit: Yes Status: Acute Pt with Scleroderma Decrease Solu-medrol to 40 q12H (7) DVT prophylaxis Current Visit: Yes Status: Acute SQ Heparin Subjective Interval history: Pt doing well s/p LLL lobectomy with Histoplasmosis on 01/17. Dr. Kumar wishes to continue chest tube to suction and high flow NC at 60L. Pt pain well controlled. Pt eating without problems and has no further questions at this time. Objective PUL Vital signs: Last Vital Signs Temp 97.4 F L 01/21/19 04:24 Pulse 100 01/21/19 06:00 Resp 15 01/21/19 07:48 BP 158/72 01/21/19 06:00 Pulse Ox 95 01/21/19 07:48 General appearance: no acute distress, alert Eyes: nonicteric Auscultation: bilateral: rales (worse on left side) Cardiovascular: other (tachycardic with regular rhythm) Gastrointestinal: soft, non-tender Integumentary: normal Extremities: no edema, pink and warm normal mental status, non-focal exam mood appropriate Results - Laboratory Findings CBC and BMP: 01/21/19 06:41 01/21/19 11:22 ABG ABG pH 7.39 pH Units (7.32-7.45) 01/20/19 08:17 ABG pCO2 45 mmHg (35-45) 01/20/19 08:17 ABG pO2 67 mmHg (85-104) L 01/20/19 08:17 ABG O2 Saturation 93 % (95-98) L 01/20/19 08:17 Abnormal lab findings: Abnormal lab results WBC 26.0 K/mcL (4.3-11.1) H 01/21/19 06:41 RBC 2.35 M/mcL (3.82-4.97) L 01/21/19 06:41 Hgb 7.1 g/dL (11.5-15.4) L 01/21/19 06:41 Hct 21.9 % (35.3-44.9) L 01/21/19 06:41 MCHC 31.4 g/dL (31.6-35.5) L 01/18/19 06:25 RDW 15.2 % (11.5-14.5) H 01/21/19 06:41 Neutrophils # 24.4 K/mcL (1.6-8.9) H 01/21/19 06:41 Lymphocytes # 0.5 K/mcL (0.6-4.6) L 01/21/19 00:48 Toxic Granulation Present (Not Present) A 01/20/19 02:03 Polychromasia 1+ (Not Present) A 01/21/19 00:48 ABG pCO2 46 mmHg (35-45) H 01/20/19 02:13 ABG pO2 67 mmHg (85-104) L 01/20/19 08:17 ABG Total CO2 29 mEq/L (20-26) H 01/20/19 08:17 ABG O2 Saturation 93 % (95-98) L 01/20/19 08:17 Sodium 133 mEq/L (136-145) L 01/21/19 00:48 Chloride 97 mEq/L (98-107) L 01/20/19 02:03 Carbon Dioxide 22 mEq/L (23-29) L 01/18/19 06:25 Glucose 127 mg/dL (70-105) H 01/21/19 06:41 POC Glucose 146 mg/dL (70-99) H 01/20/19 23:37 Calculated Osmolality 272 (280-300) L 01/20/19 11:06 Calcium 8.5 mg/dL (8.6-10.3) L 01/21/19 06:41 Venous Ioniz Calcium 1.10 mmol/L (1.15-1.35) L 01/21/19 06:57 Phosphorus 2.5 mg/dL (2.7-4.5) L 01/21/19 06:41 - Microbiology Findings Microbiology Findings: Microbiology, Last 48 Hours 01/20/19 02:03 Blood Culture - Preliminary Peripheral Venipuncture Culture is incubating and being continuously monitored for growth. Final report to follow. 01/20/19 01:57 Blood Culture - Preliminary Peripheral Venipuncture Culture is incubating and being continuously monitored for growth. Final report to follow. - Clinical Findings Intake & Output: Intake & Output 01/20/19 01/20/19 01/21/19 15:59 23:59 07:59 Intake Total 240 / 1194 464 / 1194 590 / 590 Output Total 1790 / 4110 910 / 4110 660 / 660 Balance -1550 / -2916 -446 / -2916 -70 / -70 Weight 44 kg Consult Discharge Plan - Plan Additional Instructions: Please go to Out Patient testing on 2018 around 800AM to get an x-ray done before you go see Dr. Kumar. The office is sending the order over to out patient testing at the [facility]. Referrals: Raheem Kumar MD [Partnered Physician] - 02/18/19 9:15 am Christina Cazares MD [Primary Care Provider] - 01/29/19 10:30 am <Landy Pascal - Last Filed: 01/25/19 06:09> Date of Encounter: 01/21/19 Objective PUL Vital signs: Last Vital Signs Temp 97.5 F L 01/21/19 08:00 Pulse 105 01/21/19 09:00 Resp 22 01/21/19 09:00 BP 134/74 01/21/19 09:00 Pulse Ox 93 01/21/19 09:00 Results - Laboratory Findings CBC and BMP: 01/24/19 04:47 01/24/19 04:47 ABG ABG pH 7.39 pH Units (7.32-7.45) 01/20/19 08:17 ABG pCO2 45 mmHg (35-45) 01/20/19 08:17 ABG pO2 67 mmHg (85-104) L 01/20/19 08:17 ABG O2 Saturation 93 % (95-98) L 01/20/19 08:17 Abnormal lab findings: Abnormal lab results WBC 26.0 K/mcL (4.3-11.1) H 01/21/19 06:41 RBC 2.35 M/mcL (3.82-4.97) L 01/21/19 06:41 Hgb 7.1 g/dL (11.5-15.4) L 01/21/19 06:41 Hct 21.9 % (35.3-44.9) L 01/21/19 06:41 MCHC 31.4 g/dL (31.6-35.5) L 01/18/19 06:25 RDW 15.2 % (11.5-14.5) H 01/21/19 06:41 Neutrophils # 24.4 K/mcL (1.6-8.9) H 01/21/19 06:41 Lymphocytes # 0.5 K/mcL (0.6-4.6) L 01/21/19 00:48 Toxic Granulation Present (Not Present) A 01/20/19 02:03 Polychromasia 1+ (Not Present) A 01/21/19 00:48 ABG pCO2 46 mmHg (35-45) H 01/20/19 02:13 ABG pO2 67 mmHg (85-104) L 01/20/19 08:17 ABG Total CO2 29 mEq/L (20-26) H 01/20/19 08:17 ABG O2 Saturation 93 % (95-98) L 01/20/19 08:17 Sodium 133 mEq/L (136-145) L 01/21/19 00:48 Chloride 97 mEq/L (98-107) L 01/20/19 02:03 Carbon Dioxide 22 mEq/L (23-29) L 01/18/19 06:25 Glucose 127 mg/dL (70-105) H 01/21/19 06:41 POC Glucose 146 mg/dL (70-99) H 01/20/19 23:37 Calculated Osmolality 272 (280-300) L 01/20/19 11:06 Calcium 8.5 mg/dL (8.6-10.3) L 01/21/19 06:41 Venous Ioniz Calcium 1.10 mmol/L (1.15-1.35) L 01/21/19 06:57 Phosphorus 2.5 mg/dL (2.7-4.5) L 01/21/19 06:41 Iron 12 mcg/dL (50-170) L 01/21/19 06:41 % Saturation 4 % (15-50) L 01/21/19 06:41 Transferrin 198 mg/dL (203-362) L 01/21/19 06:41 - Microbiology Findings Microbiology Findings: Microbiology, Last 48 Hours 01/20/19 02:03 Blood Culture - Preliminary Peripheral Venipuncture Culture is incubating and being continuously monitored for growth. Final report to follow. 01/20/19 01:57 Blood Culture - Preliminary Peripheral Venipuncture Culture is incubating and being continuously monitored for growth. Final report to follow. - Clinical Findings Intake & Output: Intake & Output 01/20/19 01/21/19 01/21/19 23:59 07:59 15:59 Intake Total 464 / 1194 590 / 590 Output Total 910 / 4110 660 / 1290 630 / 1290 Balance -446 / -2916 -70 / -700 -630 / -700 Weight 44 kg - Attending Attestation I examined this patient and my medical decision-making was reviewed with the Resident Physician. I agree with the documented findings, disposition and treatment plan as described except to the extent set forth below. Patient seen and examined. Labs, radiology, chart personally reviewed. Agree with resident's history and physical, assessment, plan with following comments: [employer]UR[employer]CEM[employer]: Patient follows commands, Pulmonary: Acceptable oxygenation and ventilation and chest tube per thoracic surgeon. Continue bronchodilator and taper systemic steroid. Patient was diagnosed with squamous cell lung cancer with CT-guided biopsy as outpatient and status post resection. A lung biopsy still pending. I am not exactly sure what is the diagnosis of histoplasmosis came from, however when weight for final report from biopsy. Patient is having chest pain from chest tube and she is taking narcotics at home. She is asking for her home dose medication to control the pain. Encouraged incentive spirometry. Cardiovascular: stable GI: Nutrition per dietary and GI prophylaxis per routine Heme: DVT prophylaxis per routine ID: Continue antibiotics and plan to de-escalation Renal; urine out put and renal function reviewed Endorcine: blood glucose is monitored Lines: all lines checked and no evidence of infections Skin: skin care to prevent pressure ulcers per nursing routine care Dispo: ICU Code: Full. Prognosis. Guarded.
[2019-01-21] MEDS: MetroNIDAZOLE 500 MG/100 ML 500 MG/100 ML BAG IVPB SCH ×3 (08:20→23:55)
[2019-01-21] MEDS: Famotidine 20 MG TABLET PO SCH (08:25)
[2019-01-21] MEDS: amLODIPine 5 MG TABLET PO SCH (08:25)
[2019-01-21] MEDS: Gabapentin 300 MG CAPSULE PO SCH ×3 (08:25→21:34)
[2019-01-21] MEDS: Diltiazem CD (24hr) 180 MG CAPSULE PO SCH (08:25)
[2019-01-21] MEDS: Aspirin Enteric Coated 81 MG Tablet PO SCH (08:26)
[2019-01-21] MEDS: Sennosides/Docusate Sodium TABLET PO SCH ×2 (08:27→21:34)
[2019-01-21] MEDS: methylPREDNISolone 125 MG/2 ML VIAL IVP SCH ×3 (08:28→23:54)
[2019-01-21] MEDS: Cefepime HCl 2,000 MG in Water for inj. (sterile) 20 ML IVP SCH ×2 (08:29→21:34)
--- NOTE | 2019-01-21 09:01 | Cardiothoracic Progress Note ---
Date of Encounter: 01/21/19 Time of Encounter: 08:59 - Assessment and plan (1) Histoplasmosis Current Visit: Yes Status: Acute The assessment and plan as outlined above was discussed with the patient and/or family members who expressed understanding and agreement. All questions were answered. updated family. continue chest tube to suction (2) Essential hypertension Current Visit: No Status: Chronic The assessment and plan as outlined above was discussed with the patient and/or family members who expressed understanding and agreement. All questions were answered. continue home meds (3) Chronic pain Current Visit: No Status: Chronic The assessment and plan as outlined above was discussed with the patient and/or family members who expressed understanding and agreement. All questions were answered. increase meds from baseline. Qualifiers: Chronic pain type: chronic pain syndrome Qualified Code(s): G89.4 - Chronic pain syndrome (4) Depression Current Visit: No Status: Chronic The assessment and plan as outlined above was discussed with the patient and/or family members who expressed understanding and agreement. All questions were answered. Qualifiers: Depression Type: unspecified Qualified Code(s): F32.9 - Major depressive disorder, single episode, unspecified (5) Acute hypoxemic respiratory failure Current Visit: Yes Status: Acute The assessment and plan as outlined above was discussed with the patient and/or family members who expressed understanding and agreement. All questions were answered. order i/s - Subjective Interval history: pain Vital Signs, Last 4 Hours Temp Pulse Resp BP Pulse Ox 01/21/19 08:00 97.5 F L 95 22 129/96 95 01/21/19 07:48 15 95 01/21/19 07:00 93 18 147/59 94 01/21/19 06:00 100 20 158/72 90 01/21/19 05:00 74 11 123/59 100 Oxgyen Flow Rate Oxygen Flow Rate (LPM) 60 Clinical Data, last 8 Hours Output, Chest Tube Drainage 0 Amount [Left Lateral Chest #1] Output, Chest Tube Drainage 0 Amount [Left Lateral Chest #1] Output, Chest Tube Drainage 40 Amount [Left Lateral Chest #1] Weight 01/19/19 01/20/19 01/21/19 23:59 23:59 23:59 Weight 43.9 kg 44 kg - Physical Examination General: Conversant, Well developed, Well nourished, Other (little anxious) HEENT: Atraumatic, Normocephaly Neck: No JVD Cardiac: Reg Rate and Rhythm, Normal S1 and S2, No Murmur Chest tubes: Minimal drainage, Air leak Lungs: Other (minimal crackles ) Neuro: Alert and responsive, No focal deficits noted, Cranial nerves intact Abdomen: Soft, Non-tender, Other (bs hypoactive ) - Labs 01/21/19 06:41 01/21/19 06:41 Lab Results, Last 24 hours 01/20/19 01/20/19 01/20/19 11:06 11:06 11:06 WBC 24.5 H Hgb 7.3 L Hct 22.4 L Plt Count 157 Sodium 129 L Potassium 4.4 Chloride 104 Carbon Dioxide 27 BUN 16 Creatinine 0.80 Glucose 150 H Calcium 7.9 L Magnesium 1.9 01/21/19 01/21/19 01/21/19 00:48 00:48 06:41 WBC 26.1 H 26.0 H Hgb 7.2 L 7.1 L Hct 22.6 L 21.9 L Plt Count 209 227 Sodium 133 L Potassium 3.8 Chloride 98 Carbon Dioxide 27 BUN 16 Creatinine 0.77 Glucose 209 H Calcium 8.4 L Magnesium 01/21/19 01/21/19 06:41 06:41 WBC Hgb Hct Plt Count Sodium 136 Potassium 4.4 Chloride 100 Carbon Dioxide 28 BUN 17 Creatinine 0.66 Glucose 127 H Calcium 8.5 L Magnesium 2.4 - Imaging Chest Xray: image reviewed Consult Discharge Plan - Plan Additional Instructions: Please go to Out Patient testing on 2018 around 800AM to get an x-ray done before you go see Dr. Kumar. The office is sending the order over to out patient testing at the [facility]. Referrals: Raheem Kumar MD [Partnered Physician] - 02/18/19 9:15 am Christina Cazares MD [Primary Care Provider] - 01/29/19 10:30 am
[2019-01-21 11:58] LABS: BUN/Creatinine Ratio 30 (6-26); Blood Urea Nitrogen 23 mg/dL (6-20); Calcium 8.3 mg/dL (8.6-10.3); Carbon Dioxide 25 mEq/L (23-29); Chloride 100 mEq/L (98-107); Glucose 170 mg/dL (70-105); Osmolality,Calculated 288 (280-300); Potassium 3.9 mEq/L (3.5-5.1); Sodium 135 mEq/L (136-145); eGFR For African Americans > 60 (> 60); eGFR For Non-African Americans > 60 (> 60)
[2019-01-21] MEDS: Nicotine 21 MG PATCH.TD24 TD SCH (16:26)
[2019-01-21] MEDS: ALPRAZolam 0.5 MG TABLET PO PRN (18:40)
[2019-01-21] MEDS: *HR* OxyCODONE/APAP 5/325 TABLET PO PRN (21:34)
[2019-01-21 22:15] LABS: Hematocrit 21.6 % (35.3-44.9); Hemoglobin 7.2 g/dL (11.5-15.4)
[2019-01-22] MEDS: Ipratropium/Albuterol Neb 3 ML IH SCH ×6 (04:24→23:35)
[2019-01-22 04:48] LABS: Basophils % 0.1 %; Hemoglobin 6.8 g/dL (11.5-15.4); Lymphocytes % 2.2 %
[2019-01-22 04:49] LABS: Hematocrit 20.7 % (35.3-44.9); Immature Granulocytes % 1.9 % (0-4); Lymphocytes # 0.7 K/mcL (0.6-4.6); Mean Corpuscular HGB Conc 32.9 g/dL (31.6-35.5); Mean Corpuscular Hemoglobin 30.2 pg (28.0-33.3); Mean Platelet Volume 9.8 fL (9.4-12.4); Monocytes # 0.9 K/mcL (0.0-1.3); Monocytes % 2.6 %; Neutrophils # 30.5 K/mcL (1.6-8.9); Platelet Count 288 K/mcL (140-400); Red Blood Count 2.25 M/mcL (3.82-4.97); Red Cell Distribution Width 15.3 % (11.5-14.5); Segmented Neutrophils % 93.2 %
[2019-01-22 05:00] LABS: White Blood Count 32.7 K/mcL (4.3-11.1)
[2019-01-22 05:06] LABS: Phosphorous 1.8 mg/dL (2.7-4.5)
[2019-01-22 05:23] LABS: Platelet Estimate Normal (Normal)
[2019-01-22] MEDS: ALPRAZolam 0.5 MG TABLET PO PRN ×2 (05:30→20:25)
[2019-01-22] MEDS: Ketorolac 15 MG/ML VIAL IVP SCH ×3 (05:31→18:07)
[2019-01-22] MEDS: *HR* Heparin 5,000 UNIT/ML VIAL SQ SCH ×3 (05:33→20:25)
[2019-01-22] MEDS ORDERED: 0.9 % Sodium Chloride 250 ML ONE (05:38)
--- NOTE | 2019-01-22 06:52 | Pulmonology Progress Note ---
<Susan Sandoval - Last Filed: 01/22/19 14:02> Date of Encounter: 01/22/19 Time of Encounter: 06:52 Assessment and Plan (1) Acute hypoxemic respiratory failure Current Visit: Yes Status: Acute Pt satting 93% on 45L HFNC S/P LLL lobectomy with histoplasmosis and likely PNA and CHF exacerbation Continue broad spec abx Continue diuresis Pain control Incentive spirometry Continue to monitor respiratory status and wean from oxygen as able (2) Histoplasmosis Current Visit: Yes Status: Acute S/P LLL lobectomy for suspected malignancy Microscopy demonstrates possible histoplasmosis Continue broad spectrum abx vanc and cefepime day 3 (3) Pneumonia Current Visit: Yes Status: Acute Broad spec abx as above CXR on 01/21 shows stable left sided pneumothorax wih increasing right basilar atelectasis/PNA and improving left sided atelectasis/PNA CXR also demonstrates pulmonary edema WBC today increased to 32.7 Pt still afebrile Qualifiers: Pneumonia type: due to unspecified organism Laterality: right Lung location: middle lobe of lung Qualified Code(s): J18.1 - Lobar pneumonia, unspecified organism (4) Anemia Current Visit: Yes Status: Acute Pt with low hgb following surgery Hgb had been stable but low at 7.1-7.3 over the past few days Hgb this am 6.8 Likely secondary to chronic iron deficiency anemia and blood loss via the surgery Iron stores low at 12 1 unit PRBCs ordered and transfusing IV iron infusion ordered Will recheck CBC post transfusion Qualifiers: Anemia type: unspecified type Qualified Code(s): D64.9 - Anemia, unspecified (5) Congestive heart failure (CHF) Current Visit: Yes Status: Acute S/sx of acute on chronic CHF Previous echo dated 12/15/17 shows dialstolic dysfunction with EF of 60-65% and severe aortic regurg Pt has had aortic valve replacement since this echo Continue diuresis for volume overload Qualifiers: Heart failure chronicity: acute on chronic Qualified Code(s): I50.33 - Acute on chronic diastolic (congestive) heart failure (6) Chronic pain Current Visit: No Status: Chronic Pt normally takes Percocet 10 q6H PRN at home Increased to 2 tabs Perc 10 for increased pain s/p LLL lobectomy on 7/11 Decreased to 1 Perc 10 q6H with 1 Perc 5 q6H for breakthrough pain Qualifiers: Chronic pain type: chronic pain syndrome Qualified Code(s): G89.4 - Chronic pain syndrome (7) Hypophosphatemia Current Visit: Yes Status: Acute Pts phosphate low today at 1.8 Neutra-phos ordered and given Recheck labs in am Continue to monitor (8) Current chronic use of systemic steroids Current Visit: Yes Status: Acute Pt with Scleroderma Decrease Solu-medrol to 40 q12H (9) DVT prophylaxis Current Visit: Yes Status: Acute SQ Heparin Subjective Interval history: Pt had drop in hemoglobin last night to 6.8 and one unit of blood was ordered and is currently transfusing. We will recheck her hgb post transfusion. Chest tube does sill have some minor drainage. He oxygen has been decreased to 45L HFNC and she has been tolerating incentive spirometry without significant increase in pain. Per CT surgery the patient has an air leak and the tube was changed to water seal from suction. Objective PUL Vital signs: Last Vital Signs Temp 97.9 F 01/22/19 06:47 Pulse 104 01/22/19 06:47 Resp 23 01/22/19 06:47 BP 143/55 01/22/19 06:47 Pulse Ox 90 01/22/19 06:47 General appearance: no acute distress, alert Eyes: nonicteric ENT: oropharynx moist Effort: normal Auscultation: left: diminished breath sounds, bilateral: wheezes Cardiovascular: regular rate and rhythm Gastrointestinal: soft, non-tender Integumentary: normal Extremities: no edema normal mental status, non-focal exam, pupils equal and round mood appropriate, affect normal Results - Laboratory Findings CBC and BMP: 01/22/19 11:46 01/22/19 11:46 ABG ABG pH 7.39 pH Units (7.32-7.45) 01/20/19 08:17 ABG pCO2 45 mmHg (35-45) 01/20/19 08:17 ABG pO2 67 mmHg (85-104) L 01/20/19 08:17 ABG O2 Saturation 93 % (95-98) L 01/20/19 08:17 Abnormal lab findings: Abnormal lab results WBC 32.7 K/mcL (4.3-11.1) H* 01/22/19 04:36 RBC 2.25 M/mcL (3.82-4.97) L 01/22/19 04:36 Hgb 6.8 g/dL (11.5-15.4) L 01/22/19 04:36 Hct 20.7 % (35.3-44.9) L 01/22/19 04:36 MCHC 31.4 g/dL (31.6-35.5) L 01/18/19 06:25 RDW 15.3 % (11.5-14.5) H 01/22/19 04:36 Neutrophils # 30.5 K/mcL (1.6-8.9) H 01/22/19 04:36 Lymphocytes # 0.5 K/mcL (0.6-4.6) L 01/21/19 00:48 Toxic Granulation Present (Not Present) A 01/20/19 02:03 Polychromasia 1+ (Not Present) A 01/21/19 00:48 ABG pCO2 46 mmHg (35-45) H 01/20/19 02:13 ABG pO2 67 mmHg (85-104) L 01/20/19 08:17 ABG Total CO2 29 mEq/L (20-26) H 01/20/19 08:17 ABG O2 Saturation 93 % (95-98) L 01/20/19 08:17 Sodium 135 mEq/L (136-145) L 01/21/19 11:22 Chloride 97 mEq/L (98-107) L 01/20/19 02:03 Carbon Dioxide 22 mEq/L (23-29) L 01/18/19 06:25 BUN 23 mg/dL (6-20) H 01/21/19 11:22 BUN/Creatinine Ratio 30 (6-26) H 01/21/19 11:22 Glucose 170 mg/dL (70-105) H 01/21/19 11:22 POC Glucose 146 mg/dL (70-99) H 01/20/19 23:37 Calculated Osmolality 272 (280-300) L 01/20/19 11:06 Calcium 8.3 mg/dL (8.6-10.3) L 01/21/19 11:22 Venous Ioniz Calcium 1.10 mmol/L (1.15-1.35) L 01/21/19 06:57 Phosphorus 1.8 mg/dL (2.7-4.5) L 01/22/19 04:36 Iron 12 mcg/dL (50-170) L 01/21/19 06:41 % Saturation 4 % (15-50) L 01/21/19 06:41 Transferrin 198 mg/dL (203-362) L 01/21/19 06:41 Crossmatch See Detail 01/21/19 00:48 - Microbiology Findings Microbiology Findings: Microbiology, Last 48 Hours 01/20/19 16:35 Sputum Culture - Final Sputum 01/20/19 02:03 Blood Culture - Preliminary Peripheral Venipuncture Culture is incubating and being continuously monitored for growth. Final report to follow. 01/20/19 01:57 Blood Culture - Preliminary Peripheral Venipuncture Culture is incubating and being continuously monitored for growth. Final report to follow. - Clinical Findings Intake & Output: Intake & Output 01/21/19 01/21/19 01/22/19 15:59 23:59 07:59 Intake Total 370 / 1660 700 / 1660 350 / 350 Output Total 900 / 2895 920 / 2895 1395 / 1395 Balance -530 / -1235 -220 / -1235 -1045 / -1045 Weight 43.5 kg Consult Discharge Plan - Plan Additional Instructions: Please go to Out Patient testing on 2018 around 800AM to get an x-ray done before you go see Dr. Kumar. The office is sending the order over to out patient testing at the [facility]. Referrals: Raheem Kumar MD [Partnered Physician] - 02/18/19 9:15 am Christina Cazares MD [Primary Care Provider] - 01/29/19 10:30 am <Landy Pascal - Last Filed: 01/22/19 15:30> Date of Encounter: 01/22/19 Objective PUL Vital signs: Last Vital Signs Temp 97.9 F 01/22/19 11:00 Pulse 83 01/22/19 15:00 Resp 16 01/22/19 14:00 BP 149/76 01/22/19 14:00 Pulse Ox 93 01/22/19 14:00 Results - Laboratory Findings CBC and BMP: 01/22/19 11:46 01/22/19 11:46 ABG ABG pH 7.39 pH Units (7.32-7.45) 01/20/19 08:17 ABG pCO2 45 mmHg (35-45) 01/20/19 08:17 ABG pO2 67 mmHg (85-104) L 01/20/19 08:17 ABG O2 Saturation 93 % (95-98) L 01/20/19 08:17 Abnormal lab findings: Abnormal lab results WBC 31.9 K/mcL (4.3-11.1) H* 01/22/19 11:46 RBC 3.05 M/mcL (3.82-4.97) L 01/22/19 11:46 Hgb 9.4 g/dL (11.5-15.4) L D 01/22/19 11:46 Hct 27.9 % (35.3-44.9) L 01/22/19 11:46 MCHC 31.4 g/dL (31.6-35.5) L 01/18/19 06:25 RDW 14.6 % (11.5-14.5) H 01/22/19 11:46 Neutrophils # 29.4 K/mcL (1.6-8.9) H 01/22/19 11:46 Lymphocytes # 0.5 K/mcL (0.6-4.6) L 01/21/19 00:48 Toxic Granulation Present (Not Present) A 01/20/19 02:03 Polychromasia 1+ (Not Present) A 01/21/19 00:48 ABG pCO2 46 mmHg (35-45) H 01/20/19 02:13 ABG pO2 67 mmHg (85-104) L 01/20/19 08:17 ABG Total CO2 29 mEq/L (20-26) H 01/20/19 08:17 ABG O2 Saturation 93 % (95-98) L 01/20/19 08:17 Sodium 132 mEq/L (136-145) L 01/22/19 11:46 Chloride 97 mEq/L (98-107) L 01/20/19 02:03 Carbon Dioxide 22 mEq/L (23-29) L 01/18/19 06:25 BUN 24 mg/dL (6-20) H 01/22/19 11:46 BUN/Creatinine Ratio 38 (6-26) H 01/22/19 11:46 Glucose 149 mg/dL (70-105) H 01/22/19 11:46 POC Glucose 146 mg/dL (70-99) H 01/20/19 23:37 Calculated Osmolality 272 (280-300) L 01/20/19 11:06 Calcium 8.3 mg/dL (8.6-10.3) L 01/22/19 11:46 Venous Ioniz Calcium 1.10 mmol/L (1.15-1.35) L 01/21/19 06:57 Phosphorus 1.8 mg/dL (2.7-4.5) L 01/22/19 04:36 Iron 12 mcg/dL (50-170) L 01/21/19 06:41 % Saturation 4 % (15-50) L 01/21/19 06:41 Transferrin 198 mg/dL (203-362) L 01/21/19 06:41 Crossmatch See Detail 01/21/19 00:48 - Microbiology Findings Microbiology Findings: Microbiology, Last 48 Hours 01/20/19 16:35 Sputum Culture - Final Sputum - Clinical Findings Intake & Output: Intake & Output 01/21/19 01/22/19 01/22/19 23:59 07:59 15:59 Intake Total 700 / 1660 350 / 840 490 / 840 Output Total 920 / 2895 1395 / 2575 1180 / 2575 Balance -220 / -1235 -1045 / -1735 -690 / -1735 Weight 43.5 kg - Attending Attestation I examined this patient and my medical decision-making was reviewed with the Resident Physician. I agree with the documented findings, disposition and treatment plan as described except to the extent set forth below. Patient seen and examined. Labs, radiology, chart personally reviewed. Agree with resident's history and physical, assessment, plan with following comments: [employer]: Patient follows commands, Pulmonary: Acceptable oxygenation and ventilation. 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 Patient overall feeling tired and her pain is under better control. Continue incentive spirometry. Cardiovascular: stable GI: Nutrition per dietary and GI prophylaxis per routine Heme: DVT prophylaxis per routine. Patient has drop in hemoglobin and she is receiving packed RBC. If she has any evidence of pulmonary edema then she can get diuresis. ID: Follow-up on the biopsy since histoplasmosis was mentioned before. Renal; urine out put and renal function reviewed Endorcine: blood glucose is monitored Lines: all lines checked and no evidence of infections Skin: skin care to prevent pressure ulcers per nursing routine care Dispo: ICU Code: Full. Prognosis. Fair
[2019-01-22] MEDS: Diltiazem CD (24hr) 180 MG CAPSULE PO SCH (08:04)
[2019-01-22] MEDS: Sennosides/Docusate Sodium TABLET PO SCH ×2 (08:04→20:24)
[2019-01-22] MEDS: Aspirin Enteric Coated 81 MG Tablet PO SCH (08:04)
[2019-01-22] MEDS: Gabapentin 300 MG CAPSULE PO SCH ×3 (08:04→20:24)
[2019-01-22] MEDS: amLODIPine 5 MG TABLET PO SCH (08:05)
[2019-01-22] MEDS: Nicotine 21 MG PATCH.TD24 TD SCH (08:05)
[2019-01-22] MEDS: *HR* OxyCODONE/APAP 5/325 TABLET PO PRN (08:16)
[2019-01-22] MEDS: MetroNIDAZOLE 500 MG/100 ML 500 MG/100 ML BAG IVPB SCH ×3 (10:03→23:13)
[2019-01-22] MEDS: Cefepime HCl 2,000 MG in Water for inj. (sterile) 20 ML IVP SCH ×2 (10:04→20:24)
[2019-01-22] MEDS ORDERED: Iron Sucrose Complex 400 MG in 0.9 % Sodium Chloride 250 ML IVPB ONE (10:50)
--- NOTE | 2019-01-22 10:55 | Cardiothoracic Progress Note ---
Date of Encounter: 01/22/19 Time of Encounter: 10:54 - Assessment and plan (1) Cancer of lower lobe of left lung Current Visit: Yes Status: Acute The assessment and plan as outlined above was discussed with the patient and/or family members who expressed understanding and agreement. All questions were answered. discussed with path. node negative. no chemo or rad. (2) Histoplasmosis Current Visit: Yes Status: Acute The assessment and plan as outlined above was discussed with the patient and/or family members who expressed understanding and agreement. All questions were answered. updated family. change chest tube to water seal [facility] nurse (3) Essential hypertension Current Visit: No Status: Chronic The assessment and plan as outlined above was discussed with the patient and/or family members who expressed understanding and agreement. All questions were answered. continue home meds (4) Chronic pain Current Visit: No Status: Chronic The assessment and plan as outlined above was discussed with the patient and/or family members who expressed understanding and agreement. All questions were answered. increase meds from baseline. Qualifiers: Chronic pain type: chronic pain syndrome Qualified Code(s): G89.4 - Chronic pain syndrome (5) Depression Current Visit: No Status: Chronic The assessment and plan as outlined above was discussed with the patient and/or family members who expressed understanding and agreement. All questions were answered. Qualifiers: Depression Type: unspecified Qualified Code(s): F32.9 - Major depressive disorder, single episode, unspecified (6) Acute hypoxemic respiratory failure Current Visit: Yes Status: Acute The assessment and plan as outlined above was discussed with the patient and/or family members who expressed understanding and agreement. All questions were answered. order i/s oxygen demands 1/2 of yesterday (7) Iron deficiency anemia Current Visit: Yes Status: Acute The assessment and plan as outlined above was discussed with the patient and/or family members who expressed understanding and agreement. All questions were answered. (8) Iron deficiency anemia due to dietary causes Current Visit: Yes Status: Acute The assessment and plan as outlined above was discussed with the patient and/or family members who expressed understanding and agreement. All questions were answered. replace iron today - Subjective Interval history: pain Vital Signs, Last 4 Hours Temp Pulse Resp BP Pulse Ox 01/22/19 10:00 106 21 98 01/22/19 09:00 99 26 166/74 94 01/22/19 08:00 97.5 F L 108 22 164/73 93 01/22/19 07:36 16 151/60 98 01/22/19 07:02 97.5 F L 94 23 153/63 97 01/22/19 07:00 102 24 151/60 97 Oxgyen Flow Rate Oxygen Flow Rate (LPM) 40 Clinical Data, last 8 Hours Output, Chest Tube Drainage 0 Amount [Left Lateral Chest #1] Output, Chest Tube Drainage 0 Amount [Left Lateral Chest #1] Output, Chest Tube Drainage 40 Amount [Left Lateral Chest #1] Weight 01/20/19 01/21/19 01/22/19 23:59 23:59 23:59 Weight 43.9 kg 44 kg 43.5 kg - Physical Examination General: Conversant, No Apparent Distress HEENT: Atraumatic, Normocephaly Cardiac: Reg Rate and Rhythm, Normal S1 and S2 Incision: No signs of infection, Dry/intact dressing Chest tubes: Minimal drainage, Air leak Lungs: Other (tight) Neuro: Alert and responsive, No focal deficits noted, Cranial nerves intact Vascular: Normal capillary refill - Labs 01/22/19 04:36 01/21/19 11:22 Lab Results, Last 24 hours 01/21/19 01/21/19 01/22/19 11:22 21:56 04:36 WBC 32.7 H* Hgb 7.2 L 6.8 L Hct 21.6 L 20.7 L Plt Count 288 Sodium 135 L Potassium 3.9 Chloride 100 Carbon Dioxide 25 BUN 23 H Creatinine 0.76 Glucose 170 H Calcium 8.3 L Magnesium 01/22/19 04:36 WBC Hgb Hct Plt Count Sodium Potassium Chloride Carbon Dioxide BUN Creatinine Glucose Calcium Magnesium 2.0 Consult Discharge Plan - Plan Additional Instructions: Please go to Out Patient testing on 2018 around 800AM to get an x-ray done before you go see Dr. Kumar. The office is sending the order over to out patient testing at the main hospital. Referrals: Raheem Kumar MD [Partnered Physician] - 02/18/19 9:15 am Christina Cazares MD [Primary Care Provider] - 01/29/19 10:30 am
[2019-01-22 12:03] LABS: Hematocrit 27.9 % (35.3-44.9); Hemoglobin 9.4 g/dL (11.5-15.4); Mean Corpuscular HGB Conc 33.7 g/dL (31.6-35.5); Mean Corpuscular Hemoglobin 30.8 pg (28.0-33.3); Mean Corpuscular Volume 91.5 fL (83.0-100.0); Platelet Count 307 K/mcL (140-400); Red Blood Count 3.05 M/mcL (3.82-4.97); Red Cell Distribution Width 14.6 % (11.5-14.5)
[2019-01-22] MEDS: methylPREDNISolone 125 MG/2 ML VIAL IVP SCH ×2 (12:03→23:13)
[2019-01-22 12:09] LABS: White Blood Count 31.9 K/mcL (4.3-11.1)
[2019-01-22 12:19] LABS: BUN/Creatinine Ratio 38 (6-26); Blood Urea Nitrogen 24 mg/dL (6-20); Calcium 8.3 mg/dL (8.6-10.3); Carbon Dioxide 25 mEq/L (23-29); Chloride 99 mEq/L (98-107); Glucose 149 mg/dL (70-105); Osmolality,Calculated 281 (280-300); Potassium 4.5 mEq/L (3.5-5.1); Sodium 132 mEq/L (136-145); eGFR For African Americans > 60 (> 60); eGFR For Non-African Americans > 60 (> 60)
[2019-01-22 12:45] LABS: Lymphocytes # 1.3 K/mcL (0.6-4.6); Monocytes # 1.3 K/mcL (0.0-1.3); Neutrophils # 29.4 K/mcL (1.6-8.9)
[2019-01-22 12:46] LABS: Platelet Estimate Normal (Normal)
[2019-01-22] MEDS: *HR* OxyCODONE/APAP 10/325 TABLET PO PRN (13:54)
[2019-01-23] MEDS: *HR* OxyCODONE/APAP 10/325 TABLET PO PRN ×3 (03:01→18:07)
[2019-01-23] MEDS: Ipratropium/Albuterol Neb 3 ML IH SCH ×6 (03:12→23:41)
[2019-01-23 05:47] LABS: Lymphocytes % 2.5 %; Nucleated Red Blood Cells 0.1 /100 WBC (0); Red Cell Distribution Width 15.1 % (11.5-14.5)
[2019-01-23 05:48] LABS: Basophils % 0.1 %; Hematocrit 28.9 % (35.3-44.9); Hemoglobin 9.6 g/dL (11.5-15.4); Immature Granulocytes % 1.9 % (0-4); Lymphocytes # 0.9 K/mcL (0.6-4.6); Mean Corpuscular HGB Conc 33.2 g/dL (31.6-35.5); Mean Corpuscular Hemoglobin 30.7 pg (28.0-33.3); Mean Corpuscular Volume 92.3 fL (83.0-100.0); Monocytes # 1.5 K/mcL (0.0-1.3); Monocytes % 4.2 %; Neutrophils # 32.3 K/mcL (1.6-8.9); Platelet Count 314 K/mcL (140-400); Red Blood Count 3.13 M/mcL (3.82-4.97); Segmented Neutrophils % 91.3 %
[2019-01-23 05:51] LABS: White Blood Count 35.4 K/mcL (4.3-11.1)
[2019-01-23 05:58] LABS: BUN/Creatinine Ratio 30 (6-26); Blood Urea Nitrogen 20 mg/dL (6-20); Calcium 8.5 mg/dL (8.6-10.3); Carbon Dioxide 27 mEq/L (23-29); Chloride 101 mEq/L (98-107); Glucose 131 mg/dL (70-105); Magnesium 1.8 mg/dL (1.6-2.6); Osmolality,Calculated 290 (280-300); Phosphorous 3.4 mg/dL (2.7-4.5); Potassium 4.1 mEq/L (3.5-5.1); Sodium 138 mEq/L (136-145); eGFR For African Americans > 60 (> 60); eGFR For Non-African Americans > 60 (> 60)
[2019-01-23] MEDS: *HR* Heparin 5,000 UNIT/ML VIAL SQ SCH ×3 (06:00→23:36)
[2019-01-23 06:10] LABS: Hypochromasia Present (Not Present); Platelet Estimate Normal (Normal)
[2019-01-23 06:11] LABS: Reactive Lymphocytes Present (Not Present)
--- NOTE | 2019-01-23 06:54 | Pulmonology Progress Note ---
<Susan Sandoval - Last Filed: 01/23/19 16:08> Date of Encounter: 01/23/19 Time of Encounter: 06:53 Assessment and Plan (1) Acute hypoxemic respiratory failure Current Visit: Yes Status: Acute Pt satting 93% on 35-40L HFNC S/P LLL lobectomy with histoplasmosis and likely PNA and CHF exacerbation Continue broad spec abx Continue diuresis as needed Pain control Incentive spirometry Continue to monitor respiratory status and wean from oxygen as able (2) Histoplasmosis Current Visit: Yes Status: Acute S/P LLL lobectomy for suspected malignancy Microscopy demonstrates possible histoplasmosis Continue broad spectrum abx vanc and cefepime day 4 (3) Pneumonia Current Visit: Yes Status: Acute Broad spec abx as above CXR on 01/21 shows stable left sided pneumothorax wih increasing right basilar atelectasis/PNA and improving left sided atelectasis/PNA CXR on 01/23 shows worsening pneumothorax with improvement in right sided opacities WBC today increased to 35.4 Pt still afebrile Qualifiers: Pneumonia type: due to unspecified organism Laterality: right Lung location: middle lobe of lung Qualified Code(s): J18.1 - Lobar pneumonia, unspecified organism (4) Anemia Current Visit: Yes Status: Acute Pt with low hgb following surgery Hgb had been stable but low at 7.1-7.3 over the past few days Hgb yesterday 6.8 Likely secondary to chronic iron deficiency anemia and blood loss via the surgery Iron stores low at 12 1 unit PRBCstransfused yesterday IV iron infusion ordered Hgb today 9.6 Qualifiers: Anemia type: unspecified type Qualified Code(s): D64.9 - Anemia, unspecified (5) Congestive heart failure (CHF) Current Visit: Yes Status: Chronic S/sx of acute on chronic CHF Previous echo dated 12/15/17 shows dialstolic dysfunction with EF of 60-65% and severe aortic regurg Pt has had aortic valve replacement since this echo Continue diuresis as needed for volume overload Qualifiers: Heart failure chronicity: acute on chronic Qualified Code(s): I50.33 - Acute on chronic diastolic (congestive) heart failure (6) Chronic pain Current Visit: No Status: Chronic Pt normally takes Percocet 10 q6H PRN at home Increased to 2 tabs Perc 10 for increased pain s/p LLL lobectomy on 01/17 Decreased to 1 Perc 10 q6H with 1 Perc 5 q6H for breakthrough pain Pt has been tolerating her pain well Qualifiers: Chronic pain type: chronic pain syndrome Qualified Code(s): G89.4 - Chronic pain syndrome (7) Hypophosphatemia Current Visit: Yes Status: Acute Pts phosphate low yesterday at 1.8 Neutra-phos ordered and given Phos today 3.4 Continue to monitor (8) Current chronic use of systemic steroids Current Visit: Yes Status: Acute Pt with Scleroderma Decrease Solu-medrol to 40 q12H (9) DVT prophylaxis Current Visit: Yes Status: Acute SQ Heparin Subjective Interval history: Pt CXR shows worsening left sided pneumothorax with interval improvement of the right sided opacities. Dr. Kumar was made aware of this and we will continue water lock on the chest tube with repeat imaging in the morning. WBC has increased again today and is now 35.4. Will check a urinalysis as there are no other likely sources of infection. Pt remains afebrile and on vanc/cefepime. BCx drawn on 01/20 show NGTD. Continuing to decrease oxygen requirements, now on 35L HFNC. Objective PUL Vital signs: Last Vital Signs Temp 98.3 F 01/23/19 03:40 Pulse 83 01/23/19 06:00 Resp 18 01/23/19 06:00 BP 154/76 01/23/19 06:00 Pulse Ox 96 01/23/19 06:00 General appearance: no acute distress, alert Eyes: nonicteric Effort: normal Auscultation: left: diminished breath sounds, bilateral: wheezes Cardiovascular: regular rate and rhythm Gastrointestinal: soft, non-tender Integumentary: normal Extremities: no edema normal mental status, pupils equal and round mood appropriate, affect normal Results - Laboratory Findings CBC and BMP: 01/23/19 05:26 01/23/19 05:26 ABG ABG pH 7.39 pH Units (7.32-7.45) 01/20/19 08:17 ABG pCO2 45 mmHg (35-45) 01/20/19 08:17 ABG pO2 67 mmHg (85-104) L 01/20/19 08:17 ABG O2 Saturation 93 % (95-98) L 01/20/19 08:17 Abnormal lab findings: Abnormal lab results WBC 35.4 K/mcL (4.3-11.1) H* 01/23/19 05:26 RBC 3.13 M/mcL (3.82-4.97) L 01/23/19 05:26 Hgb 9.6 g/dL (11.5-15.4) L 01/23/19 05:26 Hct 28.9 % (35.3-44.9) L 01/23/19 05:26 MCHC 31.4 g/dL (31.6-35.5) L 01/18/19 06:25 RDW 15.1 % (11.5-14.5) H 01/23/19 05:26 Neutrophils # 32.3 K/mcL (1.6-8.9) H 01/23/19 05:26 Lymphocytes # 0.5 K/mcL (0.6-4.6) L 01/21/19 00:48 Monocytes # 1.5 K/mcL (0.0-1.3) H 01/23/19 05:26 Nucleated RBCs/100 WBC 0.1 /100 WBC (0) H 01/23/19 05:26 Reactive Lymphocytes Present (Not Present) A 01/23/19 05:26 Toxic Granulation Present (Not Present) A 01/20/19 02:03 Polychromasia 1+ (Not Present) A 01/21/19 00:48 Hypochromasia Present (Not Present) A 01/23/19 05:26 ABG pCO2 46 mmHg (35-45) H 01/20/19 02:13 ABG pO2 67 mmHg (85-104) L 01/20/19 08:17 ABG Total CO2 29 mEq/L (20-26) H 01/20/19 08:17 ABG O2 Saturation 93 % (95-98) L 01/20/19 08:17 Sodium 132 mEq/L (136-145) L 01/22/19 11:46 Chloride 97 mEq/L (98-107) L 01/20/19 02:03 Carbon Dioxide 22 mEq/L (23-29) L 01/18/19 06:25 BUN 24 mg/dL (6-20) H 01/22/19 11:46 BUN/Creatinine Ratio 30 (6-26) H 01/23/19 05:26 Glucose 131 mg/dL (70-105) H 01/23/19 05:26 POC Glucose 146 mg/dL (70-99) H 01/20/19 23:37 Calculated Osmolality 272 (280-300) L 01/20/19 11:06 Calcium 8.5 mg/dL (8.6-10.3) L 01/23/19 05:26 Venous Ioniz Calcium 1.10 mmol/L (1.15-1.35) L 01/21/19 06:57 Phosphorus 1.8 mg/dL (2.7-4.5) L 01/22/19 04:36 Iron 12 mcg/dL (50-170) L 01/21/19 06:41 % Saturation 4 % (15-50) L 01/21/19 06:41 Transferrin 198 mg/dL (203-362) L 01/21/19 06:41 Crossmatch See Detail 01/21/19 00:48 - Microbiology Findings Microbiology Findings: Microbiology, Last 48 Hours 01/20/19 16:35 Sputum Culture - Final Sputum - Clinical Findings Intake & Output: Intake & Output 01/22/19 01/22/19 01/23/19 15:59 23:59 07:59 Intake Total 860 / 1820 610 / 1820 850 / 850 Output Total 1180 / 3075 500 / 3075 950 / 950 Balance -320 / -1255 110 / -1255 -100 / -100 Weight 43.5 kg Consult Discharge Plan - Plan Additional Instructions: Please go to Out Patient testing on 2018 around 800AM to get an x-ray done before you go see Dr. Kumar. The office is sending the order over to out patient testing at the [facility]. Referrals: Raheem Kumar MD [Partnered Physician] - 02/18/19 9:15 am Christina Cazares MD [Primary Care Provider] - 01/29/19 10:30 am <Landy Pascal - Last Filed: 01/26/19 00:04> Date of Encounter: 01/23/19 Objective PUL Vital signs: Last Vital Signs Temp 97.9 F 01/23/19 14:54 Pulse 94 01/23/19 15:00 Resp 17 01/23/19 16:02 BP 166/74 01/23/19 14:54 Pulse Ox 97 01/23/19 16:02 Results - Laboratory Findings CBC and BMP: 01/24/19 04:47 01/24/19 04:47 ABG ABG pH 7.39 pH Units (7.32-7.45) 01/20/19 08:17 ABG pCO2 45 mmHg (35-45) 01/20/19 08:17 ABG pO2 67 mmHg (85-104) L 01/20/19 08:17 ABG O2 Saturation 93 % (95-98) L 01/20/19 08:17 Abnormal lab findings: Abnormal lab results WBC 35.4 K/mcL (4.3-11.1) H* 01/23/19 05:26 RBC 3.13 M/mcL (3.82-4.97) L 01/23/19 05:26 Hgb 9.6 g/dL (11.5-15.4) L 01/23/19 05:26 Hct 28.9 % (35.3-44.9) L 01/23/19 05:26 MCHC 31.4 g/dL (31.6-35.5) L 01/18/19 06:25 RDW 15.1 % (11.5-14.5) H 01/23/19 05:26 Neutrophils # 32.3 K/mcL (1.6-8.9) H 01/23/19 05:26 Lymphocytes # 0.5 K/mcL (0.6-4.6) L 01/21/19 00:48 Monocytes # 1.5 K/mcL (0.0-1.3) H 01/23/19 05:26 Nucleated RBCs/100 WBC 0.1 /100 WBC (0) H 01/23/19 05:26 Reactive Lymphocytes Present (Not Present) A 01/23/19 05:26 Toxic Granulation Present (Not Present) A 01/20/19 02:03 Polychromasia 1+ (Not Present) A 01/21/19 00:48 Hypochromasia Present (Not Present) A 01/23/19 05:26 ABG pCO2 46 mmHg (35-45) H 01/20/19 02:13 ABG pO2 67 mmHg (85-104) L 01/20/19 08:17 ABG Total CO2 29 mEq/L (20-26) H 01/20/19 08:17 ABG O2 Saturation 93 % (95-98) L 01/20/19 08:17 Sodium 132 mEq/L (136-145) L 01/22/19 11:46 Chloride 97 mEq/L (98-107) L 01/20/19 02:03 Carbon Dioxide 22 mEq/L (23-29) L 01/18/19 06:25 BUN 24 mg/dL (6-20) H 01/22/19 11:46 BUN/Creatinine Ratio 30 (6-26) H 01/23/19 05:26 Glucose 131 mg/dL (70-105) H 01/23/19 05:26 POC Glucose 146 mg/dL (70-99) H 01/20/19 23:37 Calculated Osmolality 272 (280-300) L 01/20/19 11:06 Calcium 8.5 mg/dL (8.6-10.3) L 01/23/19 05:26 Venous Ioniz Calcium 1.10 mmol/L (1.15-1.35) L 01/21/19 06:57 Phosphorus 1.8 mg/dL (2.7-4.5) L 01/22/19 04:36 Iron 12 mcg/dL (50-170) L 01/21/19 06:41 % Saturation 4 % (15-50) L 01/21/19 06:41 Transferrin 198 mg/dL (203-362) L 01/21/19 06:41 Crossmatch See Detail 01/21/19 00:48 - Microbiology Findings Microbiology Findings: Microbiology, Last 48 Hours 01/20/19 16:35 Sputum Culture - Final Sputum - Clinical Findings Intake & Output: Intake & Output 01/23/19 01/23/19 01/23/19 07:59 15:59 23:59 Intake Total 850 / 1484 634 / 1484 Output Total 950 / 3050 2100 / 3050 Balance -100 / -1566 -1466 / -1566 - Attending Attestation I examined this patient and my medical decision-making was reviewed with the Resident Physician. I agree with the documented findings, disposition and treatment plan as described except to the extent set forth below. Patient seen and examined. Labs, radiology, chart personally reviewed. 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 Pulmonary: Acceptable oxygenation and ventilation and she still have chest tube and that was placed on water seal. She is under impression that she has histoplasomsis and not squamous cell lung cancer and overall she is feeling better after blood transfusion and she feels her pain under better control. Cardiovascular: stable GI: Nutrition per dietary and GI prophylaxis per routine Heme: DVT prophylaxis per routine and consider oncology to see patient for her lung cancer. ID: Continue antibiotics and plan to de-escalation and leukocytosis could be steroid related and stress, however she is at risk of infections and will be closely monitored. Renal; urine out put and renal function reviewed Endorcine: blood glucose is monitored Lines: all lines checked and no evidence of infections Skin: skin care to prevent pressure ulcers per nursing routine care Dispo: 2N when bed available Code: Full. Prognosis. Kenny
[2019-01-23] MEDS: Diltiazem CD (24hr) 180 MG CAPSULE PO SCH (08:20)
[2019-01-23] MEDS: Gabapentin 300 MG CAPSULE PO SCH ×3 (08:20→20:00)
[2019-01-23] MEDS: Aspirin Enteric Coated 81 MG Tablet PO SCH (08:20)
[2019-01-23] MEDS: Sennosides/Docusate Sodium TABLET PO SCH ×2 (08:20→20:00)
[2019-01-23] MEDS: amLODIPine 5 MG TABLET PO SCH (08:21)
[2019-01-23] MEDS: Nicotine 21 MG PATCH.TD24 TD SCH (08:22)
[2019-01-23] MEDS ORDERED: Iron Sucrose Complex 400 MG in 0.9 % Sodium Chloride 250 ML IVPB ONE (08:49)
[2019-01-23] MEDS ORDERED: Furosemide 20 MG/2 ML VIAL IVP ONE (08:50)
--- NOTE | 2019-01-23 08:58 | Cardiothoracic Progress Note ---
Date of Encounter: 01/23/19 Time of Encounter: 08:56 - Assessment and plan (1) Cancer of lower lobe of left lung Current Visit: Yes Status: Acute The assessment and plan as outlined above was discussed with the patient and/or family members who expressed understanding and agreement. All questions were answered. [facility]. chest tube to water seal (2) Histoplasmosis Current Visit: Yes Status: Acute The assessment and plan as outlined above was discussed with the patient and/or family members who expressed understanding and agreement. All questions were answered. (3) Essential hypertension Current Visit: No Status: Chronic The assessment and plan as outlined above was discussed with the patient and/or family members who expressed understanding and agreement. All questions were answered. continue home meds (4) Chronic pain Current Visit: No Status: Chronic The assessment and plan as outlined above was discussed with the patient and/or family members who expressed understanding and agreement. All questions were ans wered. increase meds from baseline. Qualifiers: Chronic pain type: chronic pain syndrome Qualified Code(s): G89.4 - Chronic pain syndrome (5) Depression Current Visit: No Status: Chronic The assessment and plan as outlined above was discussed with the patient and/or family members who expressed understanding and agreement. All questions were answered. Qualifiers: Depression Type: unspecified Qualified Code(s): F32.9 - Major depressive disorder, single episode, unspecified (6) Acute hypoxemic respiratory failure Current Visit: Yes Status: Acute The assessment and plan as outlined above was discussed with the patient and/or family members who expressed understanding and agreement. All questions were answered. oxygen decreased. give lasix x 1 (7) Iron deficiency anemia Current Visit: Yes Status: Acute The assessment and plan as outlined above was discussed with the patient and/or family members who expressed understanding and agreement. All questions were an swered. (8) Iron deficiency anemia due to dietary causes Current Visit: Yes Status: Acute The assessment and plan as outlined above was discussed with the patient and/or family members who expressed understanding and agreement. All questions were answered. 2nd dose of iron today - Subjective Interval history: pain Vital Signs, Last 4 Hours Pulse Resp BP Pulse Ox 01/23/19 08:00 95 18 159/82 93 01/23/19 07:13 17 97 01/23/19 07:00 85 16 161/78 95 01/23/19 06:00 83 18 154/76 96 01/23/19 05:00 84 14 155/56 94 Oxgyen Flow Rate Oxygen Flow Rate (LPM) 40 Clinical Data, last 8 Hours Output, Chest Tube Drainage 0 Amount [Left Lateral Chest #1] Output, Chest Tube Drainage 0 Amount [Left Lateral Chest #1] Output, Urine Amount 800 Output, Urine Amount 400 Output, Urine Amount 550 Weight 01/21/19 01/22/19 01/23/19 23:59 23:59 23:59 Weight 44 kg 43.5 kg - Physical Examination General: Conversant, No Apparent Distress, Other (looks tired today ) HEENT: Atraumatic, Normocephaly Cardiac: Reg Rate and Rhythm, Normal S1 and S2 Chest tubes: Minimal drainage, Air leak Lungs: Other (mild rhonchi.) Neuro: Alert and responsive, No focal deficits noted, Cranial nerves intact, Motor nerves intact Vascular: Normal capillary refill Abdomen: Soft, Non-tender, Other (bs present ) Extremities: No Edema - Labs 01/23/19 05:26 01/23/19 05:26 Lab Results, Last 24 hours 01/22/19 01/22/19 01/23/19 11:46 11:46 05:26 WBC 31.9 H* 35.4 H* Hgb 9.4 L D 9.6 L Hct 27.9 L 28.9 L Plt Count 307 314 Sodium 132 L Potassium 4.5 Chloride 99 Carbon Dioxide 25 BUN 24 H Creatinine 0.64 Glucose 149 H Calcium 8.3 L Magnesium 01/23/19 05:26 WBC Hgb Hct Plt Count Sodium 138 Potassium 4.1 Chloride 101 Carbon Dioxide 27 BUN 20 Creatinine 0.66 Glucose 131 H Calcium 8.5 L Magnesium 1.8 - Imaging Chest Xray: image reviewed Consult Discharge Plan - Plan Additional Instructions: Please go to Out Patient testing on 2018 around 800AM to get an x-ray done before you go see Dr. Kumar. The office is sending the order over to out patient testing at the [facility]. Referrals: Raheem Kumar MD [Partnered Physician] - 02/18/19 9:15 am Christina Cazares MD [Primary Care Provider] - 01/29/19 10:30 am
[2019-01-23] MEDS: Cefepime HCl 2,000 MG in Water for inj. (sterile) 20 ML IVP SCH ×2 (09:22→19:59)
[2019-01-23] MEDS: MetroNIDAZOLE 500 MG/100 ML 500 MG/100 ML BAG IVPB SCH ×3 (09:22→23:35)
[2019-01-23] MEDS: methylPREDNISolone 125 MG/2 ML VIAL IVP SCH ×2 (12:23→23:36)
[2019-01-23] MEDS: *HR* OxyCODONE/APAP 5/325 TABLET PO PRN (13:38)
[2019-01-23] MEDS ORDERED: Aminoglycoside Consult 1 EACH MC ONE (14:00)
[2019-01-23 19:20] LABS: Bilirubin,Urine Negative (Negative); Blood,Urine Negative (Negative); Clarity,Urine Clear (Clear); Color,Urine Yellow (Yellow); Glucose,Urine (UA) Normal (Normal); Ketones,Urine Negative (Negative); Leukocyte Esterase,Urine Negative (Negative); Nitrite,Urine Negative (Negative); PH,Urine 7.5 pH Units (5.0-8.0); Protein,Urine Negative (Neg-Trace); Specific Gravity,Urine 1.012 (1.010-1.025); Urobilinogen,Urine Normal (Normal)
[2019-01-23] MEDS: ALPRAZolam 0.5 MG TABLET PO PRN (20:51)
[2019-01-24] MEDS: *HR* OxyCODONE/APAP 10/325 TABLET PO PRN ×2 (00:48→09:22)
[2019-01-24] MEDS: Ipratropium/Albuterol Neb 3 ML IH SCH ×6 (03:59→23:55)
[2019-01-24 05:00] LABS: Basophils % 0.2 %; Immature Granulocytes % 2.9 % (0-4); Mean Platelet Volume 9.8 fL (9.4-12.4); Nucleated Red Blood Cells 0.1 /100 WBC (0); Platelet Count 333 K/mcL (140-400); Red Cell Distribution Width 15.2 % (11.5-14.5)
[2019-01-24 05:01] LABS: Basophils # 0.1 K/mcL (0.0-0.2); Hematocrit 29.8 % (35.3-44.9); Hemoglobin 9.8 g/dL (11.5-15.4); Lymphocytes # 0.7 K/mcL (0.6-4.6); Lymphocytes % 2.3 %; Mean Corpuscular HGB Conc 32.9 g/dL (31.6-35.5); Mean Corpuscular Hemoglobin 30.5 pg (28.0-33.3); Mean Corpuscular Volume 92.8 fL (83.0-100.0); Monocytes # 0.7 K/mcL (0.0-1.3); Monocytes % 2.3 %; Neutrophils # 26.7 K/mcL (1.6-8.9); Red Blood Count 3.21 M/mcL (3.82-4.97); Segmented Neutrophils % 92.3 %; White Blood Count 28.9 K/mcL (4.3-11.1)
[2019-01-24 05:04] LABS: VBG Ionized Calcium 1.14 mmol/L (1.15-1.35)
[2019-01-24 05:19] LABS: BUN/Creatinine Ratio 25 (6-26); Blood Urea Nitrogen 15 mg/dL (6-20); Calcium 8.5 mg/dL (8.6-10.3); Carbon Dioxide 31 mEq/L (23-29); Chloride 98 mEq/L (98-107); Glucose 117 mg/dL (70-105); Magnesium 2.1 mg/dL (1.6-2.6); Osmolality,Calculated 286 (280-300); Phosphorous 3.1 mg/dL (2.7-4.5); Potassium 4.2 mEq/L (3.5-5.1); Sodium 137 mEq/L (136-145); eGFR For African Americans > 60 (> 60); eGFR For Non-African Americans > 60 (> 60)
[2019-01-24] MEDS: *HR* Heparin 5,000 UNIT/ML VIAL SQ SCH ×3 (05:43→20:34)
[2019-01-24] MEDS: ALPRAZolam 0.5 MG TABLET PO PRN ×2 (05:43→20:34)
[2019-01-24 06:12] LABS: Platelet Estimate Normal (Normal)
[2019-01-24 06:13] LABS: Hypochromasia Present (Not Present); Reactive Lymphocytes Present (Not Present)
--- NOTE | 2019-01-24 06:41 | Pulmonology Progress Note ---
<GwynLandy M - Last Filed: 01/24/19 10:19> Date of Encounter: 01/24/19 Objective PUL Vital signs: Last Vital Signs Temp 97.9 F 01/23/19 14:54 Pulse 94 01/24/19 08:30 Resp 19 01/24/19 08:30 BP 122/90 01/24/19 08:30 Pulse Ox 96 01/24/19 08:30 Results - Laboratory Findings CBC and BMP: 01/24/19 04:47 01/24/19 04:47 ABG ABG pH 7.39 pH Units (7.32-7.45) 01/20/19 08:17 ABG pCO2 45 mmHg (35-45) 01/20/19 08:17 ABG pO2 67 mmHg (85-104) L 01/20/19 08:17 ABG O2 Saturation 93 % (95-98) L 01/20/19 08:17 Abnormal lab findings: Abnormal lab results WBC 28.9 K/mcL (4.3-11.1) H 01/24/19 04:47 RBC 3.21 M/mcL (3.82-4.97) L 01/24/19 04:47 Hgb 9.8 g/dL (11.5-15.4) L 01/24/19 04:47 Hct 29.8 % (35.3-44.9) L 01/24/19 04:47 MCHC 31.4 g/dL (31.6-35.5) L 01/18/19 06:25 RDW 15.2 % (11.5-14.5) H 01/24/19 04:47 Neutrophils # 26.7 K/mcL (1.6-8.9) H 01/24/19 04:47 Lymphocytes # 0.5 K/mcL (0.6-4.6) L 01/21/19 00:48 Monocytes # 1.5 K/mcL (0.0-1.3) H 01/23/19 05:26 Nucleated RBCs/100 WBC 0.1 /100 WBC (0) H 01/24/19 04:47 Reactive Lymphocytes Present (Not Present) A 01/24/19 04:47 Toxic Granulation Present (Not Present) A 01/20/19 02:03 Polychromasia 1+ (Not Present) A 01/21/19 00:48 Hypochromasia Present (Not Present) A 01/24/19 04:47 ABG pCO2 46 mmHg (35-45) H 01/20/19 02:13 ABG pO2 67 mmHg (85-104) L 01/20/19 08:17 ABG Total CO2 29 mEq/L (20-26) H 01/20/19 08:17 ABG O2 Saturation 93 % (95-98) L 01/20/19 08:17 Sodium 132 mEq/L (136-145) L 01/22/19 11:46 Chloride 97 mEq/L (98-107) L 01/20/19 02:03 Carbon Dioxide 31 mEq/L (23-29) H 01/24/19 04:47 BUN 24 mg/dL (6-20) H 01/22/19 11:46 BUN/Creatinine Ratio 30 (6-26) H 01/23/19 05:26 Glucose 117 mg/dL (70-105) H 01/24/19 04:47 POC Glucose 146 mg/dL (70-99) H 01/20/19 23:37 Calculated Osmolality 272 (280-300) L 01/20/19 11:06 Calcium 8.5 mg/dL (8.6-10.3) L 01/24/19 04:47 Venous Ioniz Calcium 1.14 mmol/L (1.15-1.35) L 01/24/19 05:00 Phosphorus 1.8 mg/dL (2.7-4.5) L 01/22/19 04:36 Iron 12 mcg/dL (50-170) L 01/21/19 06:41 % Saturation 4 % (15-50) L 01/21/19 06:41 Transferrin 198 mg/dL (203-362) L 01/21/19 06:41 Crossmatch See Detail 01/21/19 00:48 - Clinical Findings Intake & Output: Intake & Output 01/23/19 01/24/19 01/24/19 23:59 07:59 15:59 Intake Total 730 / 2214 350 / 350 Output Total 1650 / 4700 400 / 1000 600 / 1000 Balance -920 / -2486 -50 / -650 -600 / -650 Consult Discharge Plan - Plan Additional Instructions: Please go to Out Patient testing on 2018 around 800AM to get an x-ray done before you go see Dr. Kumar. The office is sending the order over to out patient testing at the main hospital. Referrals: Raheem Kumar MD [Partnered Physician] - 02/18/19 9:15 am Christina Cazares MD [Primary Care Provider] - 01/29/19 10:30 am - Attending Attestation I examined this patient and my medical decision-making was reviewed with the Resident Physician. I agree with the documented findings, disposition and treatment plan as described except to the extent set forth below. Patient seen and examined. Labs, radiology, chart personally reviewed. Agree with resident's history and physical, assessment, plan with following comments: TELEPHONIC RN: Patient follows commands, Pulmonary: Acceptable oxygenation and ventilation and thoracic surgeon is following up. Transition to oral steroid. Cardiovascular: stable GI: Nutrition per dietary and GI prophylaxis per routine Heme: DVT prophylaxis per routine and need oncology consult mainly to help patient to understand that she cancer since she doesn't believe ID: Continue antibiotics and plan to de-escalation and stop vancomycin since cultures are negative Renal; urine out put and renal function reviewed Endorcine: blood glucose is monitored Lines: all lines checked and no evidence of infections Skin: skin care to prevent pressure ulcers per nursing routine care Dispo: 2N Code: Full. Prognosis. Fair <Susan Sandoval R - Last Filed: 01/24/19 10:47> Date of Encounter: 01/24/19 Time of Encounter: 06:41 Assessment and Plan (1) Squamous cell lung cancer Current Visit: Yes Status: Acute s/p left lower lobe lobectomy with Dr. Kumar on 01/17 CT guided needle biopsy demonstrated SCC on 12/18/18 Lung path demonstrates SCC without involvement of lymph nodes Consult to hematology/oncology will be placed Qualifiers: Laterality: left Qualified Code(s): C34.92 - Malignant neoplasm of unspecified part of left bronchus or lung (2) Acute hypoxemic respiratory failure Current Visit: Yes Status: Acute Pt satting 100% on 6-8L HFNC S/P LLL lobectomy with squamous cell lung cancer and likely PNA and CHF exacerbation Continue broad spec abx Continue diuresis as needed Pain control Incentive spirometry Continue to monitor respiratory status and wean from oxygen as able (3) Pneumothorax, left Current Visit: Yes Status: Acute Left sided pneumothorax s/p LLL lobectomy Chest tube in place was placed on water seal on PTX has increased and is now 1.9 cm Chest tube will be placed to suction again today and PTX will be monitored (4) Pneumonia Current Visit: Yes Status: Acute Broad spec abx as above CXR on 01/21 shows stable left sided pneumothorax wih increasing right basilar atelectasis/PNA and improving left sided atelectasis/PNA CXR on 01/23 shows worsening pneumothorax with improvement in right sided opacities WBC today decreased to 28.9 Pt still afebrile Qualifiers: Pneumonia type: due to unspecified organism Laterality: right Lung location: middle lobe of lung Qualified Code(s): J18.1 - Lobar pneumonia, unspecified organism (5) Anemia Current Visit: Yes Status: Acute Pt with low hgb following surgery Hgb had been stable but low at 7.1-7.3 Hgb 01/22 6.8 Likely secondary to chronic iron deficiency anemia and blood loss via the surgery Iron stores low at 12 1 unit PRBCs transfused 01/22 IV iron infusion ordered Hgb today 9.8 Qualifiers: Anemia type: unspecified type Qualified Code(s): D64.9 - Anemia, unspecified (6) Leukocytosis Current Visit: Yes Status: Acute Pt has had extremely elevated WBCs throughout stay Possibly secondary to steroids vs infection vs cancer Pt on cefepime and vanc No signs of infection in lungs, abdomen, or urine Steroids are being de-escalated WBC today 28.9 Continue to monitor Qualifiers: Leukocytosis type: unspecified Qualified Code(s): D72.829 - Elevated white blood cell count, unspecified (7) Congestive heart failure (CHF) Current Visit: Yes Status: Chronic S/sx of acute on chronic CHF Previous echo dated 12/15/17 shows dialstolic dysfunction with EF of 60-65% and severe aortic regurg Pt has had aortic valve replacement since this echo Continue diuresis as needed for volume overload Qualifiers: Heart failure chronicity: acute on chronic Qualified Code(s): I50.33 - Acute on chronic diastolic (congestive) heart failure (8) Chronic pain Current Visit: No Status: Chronic Pt normally takes Percocet 10 q6H PRN at home Increased to 2 tabs Perc 10 for increased pain s/p LLL lobectomy on 01/17 Decreased to 1 Perc 10 q6H with 1 Perc 5 q6H for breakthrough pain Pt has been tolerating her pain well Qualifiers: Chronic pain type: chronic pain syndrome Qualified Code(s): G89.4 - Chronic pain syndrome (9) Histoplasmosis Current Visit: Yes Status: Suspected S/P LLL lobectomy for suspected malignancy 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 Her WBC has decreased today to 28.9. CXR demonstrates further PTX expansion to 1.9 cm - per Dr. Kumar chest tube will be changed to suction today. Continue to monitor respiratory status. Pt has tolerated decreased oxygenation and now is tolerating 6-8L at 100%. Steroids will be decreased to 40 PO daily and vanc with be DC'd. Heme/onc has been consulted for her SCC. Pt will be transferred to per Dr. Kumar. Objective PUL Vital signs: Last Vital Signs Temp 97.9 F 01/23/19 14:54 Pulse 91 01/24/19 06:00 Resp 17 01/24/19 06:00 BP 165/80 01/24/19 06:00 Pulse Ox 100 01/24/19 06:00 General appearance: asleep Eyes: nonicteric Effort: normal Auscultation: left: diminished breath sounds, bilateral: wheezes Cardiovascular: regular rate and rhythm Gastrointestinal: soft, non-tender Extremities: no edema, pink and warm non-focal exam, pupils equal and round Results - Laboratory Findings CBC and BMP: 01/24/19 04:47 01/24/19 04:47 ABG ABG pH 7.39 pH Units (7.32-7.45) 01/20/19 08:17 ABG pCO2 45 mmHg (35-45) 01/20/19 08:17 ABG pO2 67 mmHg (85-104) L 01/20/19 08:17 ABG O2 Saturation 93 % (95-98) L 01/20/19 08:17 Abnormal lab findings: Abnormal lab results WBC 28.9 K/mcL (4.3-11.1) H 01/24/19 04:47 RBC 3.21 M/mcL (3.82-4.97) L 01/24/19 04:47 Hgb 9.8 g/dL (11.5-15.4) L 01/24/19 04:47 Hct 29.8 % (35.3-44.9) L 01/24/19 04:47 MCHC 31.4 g/dL (31.6-35.5) L 01/18/19 06:25 RDW 15.2 % (11.5-14.5) H 01/24/19 04:47 Neutrophils # 26.7 K/mcL (1.6-8.9) H 01/24/19 04:47 Lymphocytes # 0.5 K/mcL (0.6-4.6) L 01/21/19 00:48 Monocytes # 1.5 K/mcL (0.0-1.3) H 01/23/19 05:26 Nucleated RBCs/100 WBC 0.1 /100 WBC (0) H 01/24/19 04:47 Reactive Lymphocytes Present (Not Present) A 01/24/19 04:47 Toxic Granulation Present (Not Present) A 01/20/19 02:03 Polychromasia 1+ (Not Present) A 01/21/19 00:48 Hypochromasia Present (Not Present) A 01/24/19 04:47 ABG pCO2 46 mmHg (35-45) H 01/20/19 02:13 ABG pO2 67 mmHg (85-104) L 01/20/19 08:17 ABG Total CO2 29 mEq/L (20-26) H 01/20/19 08:17 ABG O2 Saturation 93 % (95-98) L 01/20/19 08:17 Sodium 132 mEq/L (136-145) L 01/22/19 11:46 Chloride 97 mEq/L (98-107) L 01/20/19 02:03 Carbon Dioxide 31 mEq/L (23-29) H 01/24/19 04:47 BUN 24 mg/dL (6-20) H 01/22/19 11:46 BUN/Creatinine Ratio 30 (6-26) H 01/23/19 05:26 Glucose 117 mg/dL (70-105) H 01/24/19 04:47 POC Glucose 146 mg/dL (70-99) H 01/20/19 23:37 Calculated Osmolality 272 (280-300) L 01/20/19 11:06 Calcium 8.5 mg/dL (8.6-10.3) L 01/24/19 04:47 Venous Ioniz Calcium 1.14 mmol/L (1.15-1.35) L 01/24/19 05:00 Phosphorus 1.8 mg/dL (2.7-4.5) L 01/22/19 04:36 Iron 12 mcg/dL (50-170) L 01/21/19 06:41 % Saturation 4 % (15-50) L 01/21/19 06:41 Transferrin 198 mg/dL (203-362) L 01/21/19 06:41 Crossmatch See Detail 01/21/19 00:48 - Clinical Findings Intake & Output: Intake & Output 01/23/19 01/23/19 01/24/19 15:59 23:59 07:59 Intake Total 634 / 2214 730 / 2214 350 / 350 Output Total 2100 / 4700 1650 / 4700 400 / 400 Balance -1466 / -2486 -920 / -2486 -50 / -50
[2019-01-24] MEDS ORDERED: *HR* OxyCODONE/APAP 10/325 TABLET PO PRN (08:20)
--- NOTE | 2019-01-24 08:25 | Cardiothoracic Progress Note ---
Date of Encounter: 01/24/19 Time of Encounter: 08:23 - Assessment and plan (1) Cancer of lower lobe of left lung Current Visit: Yes Status: Acute The assessment and plan as outlined above was discussed with the patient and/or family members who expressed understanding and agreement. All questions were answered. rounded [facility] nurse. chest tube to suction. tx to floor (2) Essential hypertension Current Visit: No Status: Chronic The assessment and plan as outlined above was discussed with the patient and/or family members who expressed understanding and agreement. All questions were answered. continue home meds (3) Chronic pain Current Visit: No Status: Chronic The assessment and plan as outlined above was discussed with the patient and/or family members who expressed understanding and agreement. All questions were answered. decrease pain meds Qualifiers: Chronic pain type: chronic pain syndrome Qualified Code(s): G89.4 - Chronic pain syndrome (4) Depression Current Visit: No Status: Chronic The assessment and plan as outlined above was discussed with the patient and/or family members who expressed understanding and agreement. All questions were answered. Qualifiers: Depression Type: unspecified Qualified Code(s): F32.9 - Major depressive disorder, single episode, unspecified (5) Acute hypoxemic respiratory failure Current Visit: Yes Status: Acute The assessment and plan as outlined above was discussed with the patient and/or family members who expressed understanding and agreement. All questions were answered. oxygen decreased. - Subjective Interval history: pain Vital Signs, Last 4 Hours Pulse Resp BP Pulse Ox 01/24/19 07:00 89 19 162/74 100 01/24/19 06:00 91 17 165/80 100 01/24/19 05:00 99 16 158/70 100 Oxgyen Flow Rate Oxygen Flow Rate (LPM) 6 Clinical Data, last 8 Hours Output, Urine Amount 400 Weight 01/22/19 01/23/19 01/24/19 23:59 23:59 23:59 Weight 43.5 kg - Physical Examination General: Conversant, No Apparent Distress HEENT: Atraumatic, Normocephaly, Trachea midline Cardiac: Reg Rate and Rhythm, Normal S1 and S2 Chest tubes: Minimal drainage, Air leak Neuro: Alert and responsive, No focal deficits noted, Cranial nerves intact, Motor nerves intact Vascular: Normal capillary refill Abdomen: Soft, Non-tender Extremities: No Edema - Labs 01/24/19 04:47 01/24/19 04:47 Lab Results, Last 24 hours 01/23/19 01/24/19 01/24/19 14:00 04:47 04:47 WBC 28.9 H Hgb 9.8 L Hct 29.8 L Plt Count 333 Sodium 137 Potassium 4.2 Chloride 98 Carbon Dioxide 31 H BUN 15 Creatinine 0.61 Glucose 117 H Calcium 8.5 L Magnesium 2.2 2.1 - Imaging Chest Xray: image reviewed Consult Discharge Plan - Plan Additional Instructions: Please go to Out Patient testing on 2018 around 800AM to get an x-ray done before you go see Dr. Kumar. The office is sending the order over to out patient testing at the [facility]. Referrals: Raheem Kumar MD [Partnered Physician] - 02/18/19 9:15 am Christina Cazares MD [Primary Care Provider] - 01/29/19 10:30 am
[2019-01-24] MEDS ORDERED: *HR* OxyCODONE/APAP 5/325 TABLET PO PRN (08:28)
[2019-01-24] MEDS ORDERED: Naloxone 0.4 MG/ML INJ IVP PRN (08:28)
[2019-01-24] MEDS ORDERED: Albuterol 2.5 MG/3 ML NEBULIZER IH PRN (08:28)
[2019-01-24] MEDS: Diltiazem CD (24hr) 180 MG CAPSULE PO SCH (09:23)
[2019-01-24] MEDS: Gabapentin 300 MG CAPSULE PO SCH ×3 (09:23→20:22)
[2019-01-24] MEDS: amLODIPine 5 MG TABLET PO SCH (09:23)
[2019-01-24] MEDS: Sennosides/Docusate Sodium TABLET PO SCH ×2 (09:23→20:22)
[2019-01-24] MEDS: Aspirin Enteric Coated 81 MG Tablet PO SCH (09:24)
[2019-01-24] MEDS: Nicotine 21 MG PATCH.TD24 TD SCH (09:24)
[2019-01-24] MEDS: Cefepime HCl 2,000 MG in Water for inj. (sterile) 20 ML IVP SCH ×2 (09:39→20:35)
[2019-01-24] MEDS: MetroNIDAZOLE 500 MG/100 ML 500 MG/100 ML BAG IVPB SCH ×3 (09:40→23:47)
[2019-01-24] MEDS ORDERED: *HR* Metoprolol 5 MG/5 ML VIAL IVP ONE (10:01)
[2019-01-24] MEDS: *HR* Metoprolol 5 MG/5 ML VIAL IVP PRN ×2 (10:05→22:00)
[2019-01-24] MEDS ORDERED: methylPREDNISolone 125 MG/2 ML VIAL IVP SCH (11:45)
--- NOTE | 2019-01-24 16:03 | Oncology Inp Consult Note ---
<Trina Rebollar - Last Filed: 01/24/19 16:01> Date of Encounter: 01/24/19 Time of Encounter: 15:50 Assessment and Plan (1) Squamous cell lung cancer Status: Acute Assessment and plan: Stage I NSCLC: squamous cell carcinoma s/p lobectomy 01/17/19 Margin clear. Lymph nodes (2) negative for malignancy. Plan: Discussed need for surveillance of her lung cancer. Verbalized understanding. Appointment is scheduled for 01/31/19 at [facility]. This appointment will need rescheduled, based on patient recovery from surgery. Qualifiers: Laterality: left Qualified Code(s): C34.92 - Malignant neoplasm of unspecified part of left bronchus or lung - Data of Consult Patient: known to practice within the last 3 years Requesting Physician: Lachelle Catalan MD Primary Care Provider: Christina Cazares MD - Consult Narrative Reason for consult: NSCLC: squamous cell carcinoma History of present illness: Aleksandra, a 58 yo female with known NSCLC: squamous cell carcinoma of the LLL, is admitted to the ICU after left lower lobectomy on 01/17/[address] Kumar. She is drowsy this afternoon, but oriented to person, place, and time. She is currently on 3L O2 per NC. Left chest tube was changed from water seal to LIWS after today's chest xray. She continues with shortness of breath with exertion, fatigue, and weakness after her procedure. She denies fever or chills. She denies nausea, vomiting, constipation, or diarrhea. She does c/o constant pain to LLQ of abdomen and left flank pain. She rates her pain as 8 out of 10. Oncology history: Primary oncologist: Dr. Calle Stage I Squamous cell carcinoma of the LLL. CT-guided biopsy on 12/18/18. Lobectomy by Dr. Kumar on 01/17/19. History of breast cancer status post mastectomy and adjuvant chemotherapy (1993). Social history: Lives alone in [place], [place] Current daily smoker: 1 ppd x 45 years Past Med Surg Social Fam HX - Past Medical History Medical history: arthritis, cancer, COPD, GERD, hypertension, valvular heart disease Psychiatric history: anxiety, depression - Past Surgical History Surgical History: breast surgery, heart valve replacement, hysterectomy, orthopedic, other - Social History Smoking Status: Current every day smoker Packs per day: 2 Smokeless Tobacco Status: No Alcohol use: occasionally Drug use: none - Family History Mother History Unknown: Yes Father History Unknown: Yes Medications and Allergies Albuterol Sulfate [Proair Hfa] 2 puff IH Q6H PRN 09/13/18 [History] Aspirin [Lo-Dose Aspirin EC] 81 mg PO DAILY 09/13/18 [History] Omeprazole [PriLOSEC] 40 mg PO DAILY 09/13/18 [History] Oxycodone HCl/Acetaminophen [Percocet 10-325 mg Tablet] 1 each PO Q6H PRN 09/13/18 [History] Tizanidine HCl [Zanaflex] 4 mg PO HS PRN 09/13/18 [History] Azithromycin [Azithromycin 6-Tab Pack] 250 mg PO PER PKG DI #6 tab 01/09/19 [Rx] predniSONE [PredniSONE] 10 mg PO DAILY #21 tablet 01/09/19 [Rx] Amlodipine Besylate 5 mg PO QAM 01/17/19 [History] Dexlansoprazole [Dexilant] 60 mg PO DAILY 01/17/19 [History] Diltiazem HCl [Tiazac] 180 mg PO QAM 01/17/19 [History] Escitalopram [Lexapro] 20 mg PO DAILY 01/17/19 [History] Meclizine HCl [Verticalm] 25 mg PO PRN PRN 01/17/19 [History] Tiotropium Pearson [Spiriva Respimat] 2 puff PO DAILY 01/17/19 [History] Allergy/AdvReac Type Severity Reaction Status Date / Time Penicillins AdvReac Rash Verified 01/17/19 11:27 Constitutional: Present: fatigue Cardiovascular: Present: dyspnea on exertion. Absent: chest pain, palpitations, slow heart rate, syncope Respiratory: Present: dyspnea on exertion, wheezing. Absent: cough Gastrointestinal: Absent: constipation, diarrhea, nausea, vomiting Neurological: Present: weakness Endocrine: Present: fatigue Oncology - Exam - Constitutional General appearance: no acute distress, thin - Respiratory Respiratory exam: Present: decreased breath sounds, wheezes Additional comments: Left chest tube: LIWS with sanguineous drainage - Cardiovascular Cardiovascular exam: Present: RRR Additional comments: PVC's noted on monitor. - GI/Abdominal GI/Abdominal exam: Present: normal bowel sounds, soft - Neurological Exam Neurological exam: Present: oriented X3 Additional comments: drowsy - Psychiatric Psychiatric exam: Present: normal affect, normal mood - Skin Skin exam: Present: pallor Additional comments: Chest tube site: dressing with d/i. Small amount of dried drainage noted. Oncology Inpatient Results Labs: Laboratory Results - last 24 hr 01/23/19 01/24/19 01/24/19 09:39 04:47 04:47 WBC 28.9 H RBC 3.21 L Hgb 9.8 L Hct 29.8 L MCV 92.8 MCH 30.5 MCHC 32.9 RDW 15.2 H Plt Count 333 MPV 9.8 Immature Gran % 2.9 Seg Neutrophils % 92.3 Lymphocytes % 2.3 Monocytes % 2.3 Eosinophils % 0.0 Basophils % 0.2 Neutrophils # 26.7 H Lymphocytes # 0.7 Monocytes # 0.7 Eosinophils # 0.0 Basophils # 0.1 Nucleated RBCs/100 WBC 0.1 H Reactive Lymphocytes Present A Platelet Estimate Normal Hypochromasia Present A Sodium 137 Potassium 4.2 Chloride 98 Carbon Dioxide 31 H BUN 15 Creatinine 0.61 Est GFR ( Amer) > 60 Est GFR (Non-Af Amer) > 60 BUN/Creatinine Ratio 25 Glucose 117 H Calculated Osmolality 286 Calcium 8.5 L Venous Ioniz Calcium Phosphorus 3.1 Magnesium 2.1 Urine Color Yellow Urine Clarity Clear Urine pH 7.5 Ur Specific [place] 1.012 Urine Protein Negative Urine Glucose (UA) Normal Urine Ketones Negative Urine Blood Negative Urine Nitrite Negative Urine Bilirubin Negative Urine Urobilinogen Normal Ur Leukocyte Esterase Negative Ur Culture Indicated? NO 01/24/19 05:00 WBC RBC Hgb Hct MCV MCH MCHC RDW Plt Count MPV Immature Gran % Seg Neutrophils % Lymphocytes % Monocytes % Eosinophils % Basophils % Neutrophils # Lymphocytes # Monocytes # Eosinophils # Basophils # Nucleated RBCs/100 WBC Reactive Lymphocytes Platelet Estimate Hypochromasia Sodium Potassium Chloride Carbon Dioxide BUN Creatinine Est GFR ( Amer) Est GFR (Non-Af Amer) BUN/Creatinine Ratio Glucose Calculated Osmolality Calcium Venous Ioniz Calcium 1.14 L Phosphorus Magnesium Urine Color Urine Clarity Urine pH Ur Specific [place] Urine Protein Urine Glucose (UA) Urine Ketones Urine Blood Urine Nitrite Urine Bilirubin Urine Urobilinogen Ur Leukocyte Esterase Ur Culture Indicated? Consult Discharge Plan - Plan Additional Instructions: Please go to Out Patient testing on 2018 around 800AM to get an x-ray done before you go see Dr. Kumar. The office is sending the order over to out patient testing at the main hospital. Referrals: Raheem Kumar MD [Partnered Physician] - 02/18/19 9:15 am Christina Cazares MD [Primary Care Provider] - 01/29/19 10:30 am Inpatient Charges Provider: Dr. Marie Calle <Eleonora Calle S - Last Filed: 01/24/19 19:26> Date of Encounter: 01/24/19 - Data of Consult Requesting Physician: Lachelle Catalan MD Primary Care Provider: Christina Cazares MD Inpatient Charges Provider: Dr. Marie Calle Consult - Inpatient: [id number] - Attending Attestation I examined this patient and my medical decision-making was reviewed with the Advanced Practice Nurse. I agree with the documented findings, disposition and treatment plan as described except to the extent set forth below. Stage I NSCLC: squamous cell carcinoma s/p lobectomy 01/17/19 Margin clear. Lymph nodes C Lo out of 16. Tumor size 6 mm grade 2 unifocal clear margins pT1a N0 M0 stage I. We will watch her per NCCN guidelines. She still has chest tube from left chest wall with drainage. Overall this is im proving
[2019-01-25] MEDS: *HR* OxyCODONE/APAP 10/325 TABLET PO PRN ×4 (00:58→23:48)
[2019-01-25] MEDS: Ipratropium/Albuterol Neb 3 ML IH SCH ×5 (04:56→20:22)
[2019-01-25] MEDS: MetroNIDAZOLE 500 MG/100 ML 500 MG/100 ML BAG IVPB SCH ×4 (05:18→23:48)
[2019-01-25] MEDS: Cefepime HCl 2,000 MG in Water for inj. (sterile) 20 ML IVP SCH ×3 (05:18→20:50)
[2019-01-25] MEDS: *HR* Heparin 5,000 UNIT/ML VIAL SQ SCH ×3 (05:39→20:50)
[2019-01-25] MEDS: Ondansetron 4 MG/2 ML VIAL IVP PRN ×2 (05:48→22:26)
[2019-01-25] MEDS: Aspirin Enteric Coated 81 MG Tablet PO SCH (07:49)
[2019-01-25] MEDS: Gabapentin 300 MG CAPSULE PO SCH ×3 (07:49→20:50)
[2019-01-25] MEDS: amLODIPine 5 MG TABLET PO SCH (07:49)
[2019-01-25] MEDS: Diltiazem CD (24hr) 180 MG CAPSULE PO SCH (07:49)
[2019-01-25] MEDS: Sennosides/Docusate Sodium TABLET PO SCH ×2 (07:49→20:50)
[2019-01-25] MEDS: Nicotine 21 MG PATCH.TD24 TD SCH (07:51)
[2019-01-25] MEDS ORDERED: predniSONE 20 MG TABLET PO SCH (09:00)
--- NOTE | 2019-01-25 10:00 | Cardiothoracic Progress Note ---
Date of Encounter: 01/25/19 Time of Encounter: 09:58 - Assessment and plan (1) Cancer of lower lobe of left lung Current Visit: Yes Status: Acute The assessment and plan as outlined above was discussed with the patient and/or family members who expressed understanding and agreement. All questions were answered. chest tube to suction. (2) Essential hypertension Current Visit: No Status: Chronic The assessment and plan as outlined above was discussed with the patient and/or family members who expressed understanding and agreement. All questions were answered. continue home meds (3) Chronic pain Current Visit: No Status: Chronic The assessment and plan as outlined above was discussed with the patient and/or family members who expressed understanding and agreement. All questions were answered. decrease pain meds Qualifiers: Chronic pain type: chronic pain syndrome Qualified Code(s): G89.4 - Chronic pain syndrome (4) Depression Current Visit: No Status: Chronic The assessment and plan as outlined above was discussed with the patient and/or family members who expressed understanding and agreement. All questions were answered. Qualifiers: Depression Type: unspecified Qualified Code(s): F32.9 - Major depressive disorder, single episode, unspecified (5) Oral herpes simplex infection Current Visit: Yes Status: Acute The assessment and plan as outlined above was discussed with the patient and/or family members who expressed understanding and agreement. All questions were answered. start oral acyclovir - Subjective Interval history: pain Vital Signs, Last 4 Hours Temp Pulse Resp BP 01/25/19 07:23 98.2 F 95 18 173/95 Oxgyen Flow Rate Oxygen Flow Rate (LPM) 2 Clinical Data, last 8 Hours Output, Chest Tube Drainage 70 Amount [Left Lateral Chest #1] Output, Chest Tube Drainage 20 Amount [Left Lateral Chest #1] Output, Urine Amount 300 Output, Urine Amount 400 Weight 01/23/19 01/24/19 01/25/19 23:59 23:59 23:59 Weight 42.4 kg - Physical Examination General: Conversant, No Apparent Distress HEENT: Atraumatic, Normocephaly Neck: No JVD Cardiac: Reg Rate and Rhythm, Normal S1 and S2 Incision: No signs of infection, Dry/intact dressing, Open to air Chest tubes: Minimal drainage, Air leak Lungs: Normal Breath Sounds Neuro: Alert and responsive, No focal deficits noted, Cranial nerves intact, Motor nerves intact Abdomen: Soft, Non-tender, Other (bs hypoactive ) - Labs 01/24/19 04:47 01/24/19 04:47 - Imaging Chest Xray: image reviewed Consult Discharge Plan - Plan Additional Instructions: Please go to Out Patient testing on 2018 around 800AM to get an x-ray done before you go see Dr. Kumar. The office is sending the order over to out patient testing at the [facility]. Referrals: Raheem Kumar MD [Partnered Physician] - 02/18/19 9:15 am Christina Cazares MD [Primary Care Provider] - 01/29/19 10:30 am
[2019-01-25] MEDS: Acyclovir 200 MG CAPSULE PO SCH ×4 (11:08→23:48)
--- NOTE | 2019-01-25 11:09 | Internal Med Progress Note ---
<Yoni Bone - Last Filed: 01/25/19 16:35> Hospitalist Progress Note - Encounter Date of Encounter: 01/25/19 - Exam Vitals: Temp Pulse Resp BP Pulse Ox 98.5 F 106 18 155/86 93 01/25/19 16:13 01/25/19 16:13 01/25/19 16:13 01/25/19 16:13 01/25/19 16:13 - Assessment and Plan (1) Acute hypoxemic respiratory failure Current Visit: Yes Status: Acute (2) Pneumonia Current Visit: Yes Status: Acute (3) Current chronic use of systemic steroids Current Visit: Yes Status: Acute (4) DVT prophylaxis Current Visit: Yes Status: Acute (5) Essential hypertension Current Visit: No Status: Chronic - Time Spent with Patient Total time spent is greater than 50% in coordination of care (as documented) at patient's floor/unit and/or counseling patient: Internal Medicine: Result - Labs CBC & Chem 7: 01/24/19 04:47 01/24/19 04:47 - ABG Interpretation ABG results: ABG ABG pH 7.39 pH Units (7.32-7.45) 01/20/19 08:17 ABG pCO2 45 mmHg (35-45) 01/20/19 08:17 ABG pO2 67 mmHg (85-104) L 01/20/19 08:17 ABG O2 Saturation 93 % (95-98) L 01/20/19 08:17 - Impressions Impressions Chest X-Ray 01/25/19 08:00 IMPRESSION: 1. Decreased size of the left-sided pneumothorax. 2. Pulmonary edema. D/ / Wyatt Pinto MD / Wyatt Pinto MD Interpreting Provider: Wyatt Pinto MD Consult Discharge Plan - Plan Additional Instructions: Please go to Out Patient testing on 2018 around 800AM to get an x-ray done before you go see Dr. Kumar. The office is sending the order over to out patient testing at the [facility]. Referrals: Raheem Kumar MD [Partnered Physician] - 02/18/19 9:15 am Christina Cazares MD [Primary Care Provider] - 01/29/19 10:30 am - Attending Attestation I examined this patient and my medical decision-making was reviewed with the Resident Physician on 01/25/19. I agree with the documented findings, disposition and treatment plan as described except to the extent set forth below. Ms Tran is currently admitted to CTS service s/p lung resection. She is also being treated for pneumonia. Ms Tran is resting at this time. No fever or chills. Day 6 of abx. Exam: Comfortable. Mucus membranes dry. NC. Neck supple. Not tachycardic. No edema. No rash. Plan: Complete 7 -10 days abx (can switch to oral if to be discharged). Monitor WBC. Further as per CTS. <Odin Feng I - Last Filed: 01/25/19 20:57> Hospitalist Progress Note - Encounter Date of Encounter: 01/25/19 Time of Encounter: 08:40 - Subjective Interval History: Ms. Tran is a 58 year old female who is 8 days postop from left lower lobe lobectomy for suspected lung cancer., she has past medical history of breast cancer, COPD, GERD, hypertension, valvular heart disease with aortic valve replacement . today pt was seen at bed site, she appear ill ,She continues with shortness of breath with exertion, fatigue, and weakness , on 2 l nasal canula oxygen . have left chest and back pain , denies fever . denies nausea , vomiting diarrhea or constipation - Exam Vitals: Temp Pulse Resp BP Pulse Ox 98.2 F 95 18 173/95 100 01/25/19 07:23 01/25/19 07:23 01/25/19 07:01/25/19 07:01/25/19 04:57 Exam: General: mild distress , A&AX3 HEENT: Atraumatic, Normocephaly, sclera unicteric Neck: supple , Full ROM , trachea midline Cardiac: RRR , S1+. S2+ Lungs: decrease Breath Sounds Bilaterally, Abdomen: Soft, Non-Tender ,no organomegaly , +bowel sounds Extremities: No Clubbing, No Cyanosis,or edema , Normal Pulses Skin : intact , Normal color Psychiatric : normal affect, normal mood Nuero : alert, normal gait, oriented X3 - Assessment and Plan (1) Acute hypoxemic respiratory failure Current Visit: Yes Status: Acute Assessment and Plan: S/P LLL lobectomy with squamous cell lung cancer and likely PNA and CHF exacerbation she is currently on 2 liter of oxygen Continue broad spec abx , today is day 7 of cefipime continue predisolone 20 mg Po daily Continue diuresis as needed Pain control Incentive spirometry Continue to monitor respiratory status and wean from oxygen as able (2) Pneumonia Current Visit: Yes Status: Acute Assessment and Plan: CXR on 01/21 shows stable left sided pneumothorax wih increasing right basilar atelectasis/PNA CXR on 01/23 shows worsening pneumothorax with improvement in right sided opacities wbc today 28.6 patient dnies fever , but cough and dyspnia positive she is on cefipime day 7 for a total 10 days antibiotic (3) Congestive heart failure (CHF) Current Visit: Yes Status: Chronic Assessment and Plan: acute on chronic CHF , patient has dyspnia Previous echo dated 12/15/17 shows dialstolic dysfunction with EF of 60-65% and severe aortic regurg Pt has had aortic valve replacement since this echo Continue diuresis as needed for volume overload (4) Squamous cell lung cancer Current Visit: Yes Status: Acute Assessment and Plan: left lower lobe lobectomy on 01/17 CT guided needle biopsy demonstrated SCC on 12/18/18 Lung path demonstrates SCC without involvement of lymph nodes Consult to hematology/oncology is placed (5) Pneumothorax, left Current Visit: Yes Status: Acute Assessment and Plan: Left sided pneumothorax s/p LLL lobectomy Chest tube in place was placed on water seal on PTX has increased and is now 1.9 cm Chest tube will be placed to suction (6) Oral herpes simplex infection Current Visit: Yes Status: Acute Assessment and Plan: patient had oral lesions , she is on acyclovir - Time Spent with Patient Total time spent is greater than 50% in coordination of care (as documented) at patient's floor/unit and/or counseling patient: Internal Medicine: Result - Labs CBC & Chem 7: 01/24/19 04:47 01/24/19 04:47 - ABG Interpretation ABG results: ABG ABG pH 7.39 pH Units (7.32-7.45) 01/20/19 08:17 ABG pCO2 45 mmHg (35-45) 01/20/19 08:17 ABG pO2 67 mmHg (85-104) L 01/20/19 08:17 ABG O2 Saturation 93 % (95-98) L 01/20/19 08:17 - Impressions Impressions Chest X-Ray 01/25/19 08:00 IMPRESSION: 1. Decreased size of the left-sided pneumothorax. 2. Pulmonary edema. D/ / Wyatt Pinto MD / Wyatt Pinto MD Interpreting Provider: Wyatt Pinto MD <Yoni Bone - Last Filed: 01/25/19 16:35> (2) Pneumonia Qualifiers: Pneumonia type: due to unspecified organism Laterality: right Lung location: middle lobe of lung Qualified Code(s): J18.1 - Lobar pneumonia, unspecified organism <Odin Feng I - Last Filed: 01/25/19 20:57> (2) Pneumonia Qualifiers: Pneumonia type: due to unspecified organism Laterality: right Lung location: middle lobe of lung Qualified Code(s): J18.1 - Lobar pneumonia, unspecified organism (3) Congestive heart failure (CHF) Qualifiers: Heart failure chronicity: acute on chronic Qualified Code(s): I50.33 - Acute on chronic diastolic (congestive) heart failure (4) Squamous cell lung cancer Qualifiers: Laterality: left Qualified Code(s): C34.92 - Malignant neoplasm of unspecified part of left bronchus or lung
[2019-01-25] MEDS ORDERED: *HR* OxyCODONE/APAP 10/325 TABLET PO PRN (15:53)
[2019-01-25] MEDS ORDERED: *HR* HYDROcodone/Acet 10/325 mg TABLET PO PRN (16:41)
[2019-01-25] MEDS: ALPRAZolam 0.5 MG TABLET PO PRN (21:05)
[2019-01-25] MEDS: *HR* Metoprolol 5 MG/5 ML VIAL IVP PRN (21:12)
[2019-01-26] MEDS: Ipratropium/Albuterol Neb 3 ML IH SCH ×6 (00:28→20:21)
[2019-01-26 04:33] LABS: Hematocrit 32.7 % (35.3-44.9); Hemoglobin 10.7 g/dL (11.5-15.4); Mean Corpuscular HGB Conc 32.7 g/dL (31.6-35.5); Mean Corpuscular Hemoglobin 30.4 pg (28.0-33.3); Mean Corpuscular Volume 92.9 fL (83.0-100.0); Mean Platelet Volume 9.5 fL (9.4-12.4); Platelet Count 346 K/mcL (140-400); Red Blood Count 3.52 M/mcL (3.82-4.97); Red Cell Distribution Width 15.9 % (11.5-14.5); White Blood Count 23.2 K/mcL (4.3-11.1)
[2019-01-26 04:50] LABS: % Iron Saturation 29 % (15-50); BUN/Creatinine Ratio 29 (6-26); Blood Urea Nitrogen 17 mg/dL (6-20); Calcium 8.5 mg/dL (8.6-10.3); Carbon Dioxide 29 mEq/L (23-29); Chloride 95 mEq/L (98-107); Glucose 84 mg/dL (70-105); Iron 75 mcg/dL (50-170); Magnesium 1.9 mg/dL (1.6-2.6); Osmolality,Calculated 271 (280-300); Sodium 130 mEq/L (136-145); Transferrin 183 mg/dL (203-362); eGFR For African Americans > 60 (> 60); eGFR For Non-African Americans > 60 (> 60)
[2019-01-26] MEDS: *HR* Heparin 5,000 UNIT/ML VIAL SQ SCH ×3 (05:40→21:31)
[2019-01-26] MEDS: *HR* OxyCODONE/APAP 10/325 TABLET PO PRN ×4 (05:40→23:47)
[2019-01-26] MEDS: amLODIPine 5 MG TABLET PO SCH ×3 (07:37→10:55)
[2019-01-26] MEDS: Diltiazem CD (24hr) 180 MG CAPSULE PO SCH (07:37)
[2019-01-26] MEDS: Aspirin Enteric Coated 81 MG Tablet PO SCH (07:38)
[2019-01-26] MEDS: Gabapentin 300 MG CAPSULE PO SCH ×3 (07:38→21:30)
[2019-01-26] MEDS: Cefepime HCl 2,000 MG in Water for inj. (sterile) 20 ML IVP SCH ×2 (07:38→21:30)
[2019-01-26] MEDS: Sennosides/Docusate Sodium TABLET PO SCH ×2 (07:38→21:30)
[2019-01-26] MEDS: MetroNIDAZOLE 500 MG/100 ML 500 MG/100 ML BAG IVPB SCH ×3 (07:39→23:48)
[2019-01-26] MEDS: Nicotine 21 MG PATCH.TD24 TD SCH (07:39)
[2019-01-26] MEDS: Acyclovir 200 MG CAPSULE PO SCH ×4 (07:41→21:30)
--- NOTE | 2019-01-26 08:12 | Internal Med Progress Note ---
<Yoni Bone - Last Filed: 01/26/19 14:39> Hospitalist Progress Note - Encounter Date of Encounter: 01/26/19 - Exam Vitals: Temp Pulse Resp BP Pulse Ox 98.1 F 101 18 149/98 98 01/26/19 11:50 01/26/19 11:50 01/26/19 11:50 01/26/19 11:50 01/26/19 11:50 - Assessment and Plan (1) Essential hypertension Current Visit: No Status: Chronic (2) Depression Current Visit: No Status: Chronic (3) Acute hypoxemic respiratory failure Current Visit: Yes Status: Acute (4) Pneumonia Current Visit: Yes Status: Acute (5) Current chronic use of systemic steroids Current Visit: Yes Status: Acute (6) DVT prophylaxis Current Visit: Yes Status: Acute (7) Congestive heart failure (CHF) Current Visit: Yes Status: Acute (8) Anemia Current Visit: Yes Status: Acute (9) Squamous cell lung cancer Current Visit: Yes Status: Acute (10) Oral herpes simplex infection Current Visit: Yes Status: Acute (11) Hyponatremia Current Visit: Yes Status: Acute - Time Spent with Patient Total time spent is greater than 50% in coordination of care (as documented) at patient's floor/unit and/or counseling patient: Internal Medicine: Result - Labs CBC & Chem 7: 01/26/19 04:13 01/26/19 04:13 Labs: Short CBC 01/26/19 Range/Units 04:13 WBC 23.2 H (4.3-11.1) K/mcL Hgb 10.7 L (11.5-15.4) g/dL Hct 32.7 L (35.3-44.9) % Plt Count 346 (140-400) K/mcL BMP 01/26/19 04:13 Sodium 130 L Potassium 4.0 Chloride 95 L Carbon Dioxide 29 BUN 17 Creatinine 0.59 L Glucose 84 Calcium 8.5 L - ABG Interpretation ABG results: ABG ABG pH 7.39 pH Units (7.32-7.45) 01/20/19 08:17 ABG pCO2 45 mmHg (35-45) 01/20/19 08:17 ABG pO2 67 mmHg (85-104) L 01/20/19 08:17 ABG O2 Saturation 93 % (95-98) L 01/20/19 08:17 Consult Discharge Plan - Plan Additional Instructions: Please go to Out Patient testing on 2018 around 800AM to get an x-ray done before you go see Dr. Kumar. The office is sending the order over to out patient testing at the main hospital. Referrals: Raheem Kumar MD [Partnered Physician] - 02/18/19 9:15 am Christina Cazares MD [Primary Care Provider] - 01/29/19 10:30 am - Attending Attestation I examined this patient and my medical decision-making was reviewed with the Resident Physician on 01/26/19. I agree with the documented findings, di sposition and treatment plan as described except to the extent set forth below. Ms. Tran is currently admitted s/p lung resection. We are following for pneumonia and chronic medical issues. Ms Tran is up in chair. She is having a lot of "belching." No fever or chills. Exam: Alert. Comfortable. NC. Mucus membranes dry. Heart not tachy. No wheeze. ABd soft. No edema. Moves all extremities. Plan: continue abx till Monday. Monitor chronic conditions. <Jonathan Madsen - Last Filed: 01/26/19 20:58> Hospitalist Progress Note - Encounter Date of Encounter: 01/26/19 Time of Encounter: 08:09 - Subjective Interval History: Patient seen and examined resting comfortably in bed. Patient reports ongoing belching symptoms despite taking Tums. He would like to try Carafate. Chest tube remained in place. Cardiothoracic surgery following. - Exam Vitals: Temp Pulse Resp BP Pulse Ox 98.1 F 92 18 162/78 98 01/26/19 07:32 01/26/19 07:32 01/26/19 07:32 01/26/19 07:32 01/26/19 07:32 Exam: General: no acute distress, A&AX3 HEENT: Atraumatic, Normocephaly, mucous membranes dry Neck: supple, Full ROM, trachea midline Cardiac: RRR , S1+. S2+ Lungs: decreased breath sounds bilaterally, no wheezing Abdomen: Soft, Non-Tender ,no organomegaly, +bowel sounds Extremities: No Clubbing, No Cyanosis,or edema, Normal Pulses Skin: intact, Normal color Psychiatric: normal affect, normal mood Nuero: alert and oriented X3, no focal deficits - Assessment and Plan (1) Pneumonia Current Visit: Yes Status: Acute Assessment and Plan: CXR 01/21 revealed stable left sided pneumothorax with increasing right basilar atelectasis/PNA CXR 01/23 revealed worsening pneumothorax with improvement in right sided opacities Sputum culture revealed many epithelial cells. Continue Cefipime day 7 of 10 Encourage incentive spirometry. (2) Acute hypoxemic respiratory failure Current Visit: Yes Status: Acute Assessment and Plan: S/P LLL lobectomy with squamous cell lung cancer and likely PNA and CHF exacerbation she is currently on 2 liters of oxygen Continue Cefipime for 10 days total Continue Predisolone 20 mg PO daily Continue diuresis as needed Pain control Incentive spirometry Continue to monitor respiratory status and wean from oxygen as able (3) Essential hypertension Current Visit: No Status: Chronic Assessment and Plan: Blood pressure elevated. Increase home dose of amlodipine to 10 mg daily. Continue Cardizem 180 PO daily. (4) Congestive heart failure (CHF) Current Visit: Yes Status: Acute Assessment and Plan: Acute on chronic HFpEF Previous echo dated 12/15/17 shows dialstolic dysfunction with EF of 60-65% and severe aortic regurg Pt has since had aortic valve replacement Continue diuresis as needed (5) Squamous cell lung cancer Current Visit: Yes Status: Acute Assessment and Plan: left lower lobe lobectomy on 01/17 CT guided needle biopsy demonstrated SCC on 12/18/18 Lung path demonstrates SCC without involvement of lymph nodes Outpatient follow-up (6) Current chronic use of systemic steroids Current Visit: Yes Status: Acute Assessment and Plan: Continue prednisone (7) Oral herpes simplex infection Current Visit: Yes Status: Acute Assessment and Plan: Continue acyclovir. (8) Depression Current Visit: No Status: Chronic Assessment and Plan: Continue home meds (9) Hyponatremia Current Visit: Yes Status: Acute (10) Anemia Current Visit: Yes Status: Acute Assessment and Plan: Normocytic anemia in the setting of acute blood loss/ recent left lung resection Iron studies reviewed. Continue close monitoring. (11) DVT prophylaxis Current Visit: Yes Status: Acute Assessment and Plan: Heparin SubQ - Time Spent with Patient Total time spent is greater than 50% in coordination of care (as documented) at patient's floor/unit and/or counseling patient: Internal Medicine: Result - Labs CBC & Chem 7: 01/26/19 04:13 01/26/19 04:13 Labs: Short CBC 01/26/19 Range/Units 04:13 WBC 23.2 H (4.3-11.1) K/mcL Hgb 10.7 L (11.5-15.4) g/dL Hct 32.7 L (35.3-44.9) % Plt Count 346 (140-400) K/mcL BMP 01/26/19 04:13 Sodium 130 L Potassium 4.0 Chloride 95 L Carbon Dioxide 29 BUN 17 Creatinine 0.59 L Glucose 84 Calcium 8.5 L - ABG Interpretation ABG results: ABG ABG pH 7.39 pH Units (7.32-7.45) 01/20/19 08:17 ABG pCO2 45 mmHg (35-45) 01/20/19 08:17 ABG pO2 67 mmHg (85-104) L 01/20/19 08:17 ABG O2 Saturation 93 % (95-98) L 01/20/19 08:17 <Yoni Bone - Last Filed: 01/26/19 14:39> (2) Depression Qualifiers: Depression Type: unspecified Qualified Code(s): F32.9 - Major depressive disorder, single episode, unspecified (4) Pneumonia Qualifiers: Pneumonia type: due to unspecified organism Laterality: right Lung location: middle lobe of lung Qualified Code(s): J18.1 - Lobar pneumonia, unspecified organism (7) Congestive heart failure (CHF) Qualifiers: Heart failure type: diastolic Heart failure chronicity: acute on chronic Qualified Code(s): I50.33 - Acute on chronic diastolic (congestive) heart failure (8) Anemia Qualifiers: Anemia type: unspecified type Qualified Code(s): D64.9 - Anemia, unspecified (9) Squamous cell lung cancer Qualifiers: Laterality: left Qualified Code(s): C34.92 - Malignant neoplasm of unspecified part of left bronchus or lung <Jonathan Madsen - Last Filed: 01/26/19 20:58> (1) Pneumonia Qualifiers: Pneumonia type: due to unspecified organism Laterality: right Lung location: middle lobe of lung Qualified Code(s): J18.1 - Lobar pneumonia, unspecified organism (4) Congestive heart failure (CHF) Qualifiers: Heart failure type: diastolic Heart failure chronicity: acute on chronic Qualified Code(s): I50.33 - Acute on chronic diastolic (congestive) heart failure (5) Squamous cell lung cancer Qualifiers: Laterality: left Qualified Code(s): C34.92 - Malignant neoplasm of unspecified part of left bronchus or lung (8) Depression Qualifiers: Depression Type: unspecified Qualified Code(s): F32.9 - Major depressive d isorder, single episode, unspecified (10) Anemia Qualifiers: Anemia type: unspecified type Qualified Code(s): D64.9 - Anemia, unspecified
[2019-01-26] MEDS ORDERED: predniSONE 20 MG TABLET PO SCH (09:00)
--- NOTE | 2019-01-26 09:42 | Cardiothoracic Progress Note ---
Date of Encounter: 01/26/19 Time of Encounter: 09:37 - Assessment and plan (1) Cancer of lower lobe of left lung Current Visit: Yes Status: Acute The assessment and plan as outlined above was discussed with the patient and/or family members who expressed understanding and agreement. All questions were answered. chest tube to suction. instructed patient and nephew to ambulate. rounded with nurse (2) Essential hypertension Current Visit: No Status: Chronic The assessment and plan as outlined above was discussed with the patient and/or family members who expressed understanding and agreement. All questions were answered. continue home meds (3) Chronic pain Current Visit: No Status: Chronic The assessment and plan as outlined above was discussed with the patient and/or family members who expressed understanding and agreement. All questions were answered. decrease pain meds add lidoderm patch Qualifiers: Chronic pain type: chronic pain syndrome Qualified Code(s): G89.4 - Chronic pain syndrome (4) Depression Current Visit: No Status: Chronic The assessment and plan as outlined above was discussed with the patient and/or family members who expressed understanding and agreement. All questions were answered. Qualifiers: Depression Type: unspecified Qualified Code(s): F32.9 - Major depressive disorder, single episode, unspecified (5) Oral herpes simplex infection Current Visit: Yes Status: Acute The assessment and plan as outlined above was discussed with the patient and/or family members who expressed understanding and agreement. All questions were answered. start oral acyclovir - Subjective Interval history: pain Vital Signs, Last 4 Hours Temp Pulse Resp BP Pulse Ox 01/26/19 08:16 16 96 01/26/19 07:32 98.1 F 92 18 162/78 98 Oxgyen Flow Rate Oxygen Flow Rate (LPM) 2 Clinical Data, last 8 Hours Output, Chest Tube Drainage 30 Amount [Left Lateral Chest #1] Output, Chest Tube Drainage 50 Amount [Left Lateral Chest #1] Output, Urine Amount 250 Weight 01/24/19 01/25/19 01/26/19 23:59 23:59 23:59 Weight 42.4 kg 41.2 kg - Physical Examination General: Conversant, No Apparent Distress HEENT: Atraumatic, Normocephaly Cardiac: Reg Rate and Rhythm, Normal S1 and S2 Incision: No signs of infection, Dry/intact dressing, Open to air Chest tubes: Minimal drainage, Air leak Lungs: Normal Breath Sounds Neuro: Alert and responsive, No focal deficits noted Abdomen: Soft, Non-tender, Other (bm this am ) Extremities: No Edema, Normal Pulses - Labs 01/26/19 04:13 01/26/19 04:13 Lab Results, Last 24 hours 01/26/19 01/26/19 04:13 04:13 WBC 23.2 H Hgb 10.7 L Hct 32.7 L Plt Count 346 Sodium 130 L Potassium 4.0 Chloride 95 L Carbon Dioxide 29 BUN 17 Creatinine 0.59 L Glucose 84 Calcium 8.5 L Magnesium 1.9 Consult Discharge Plan - Plan Additional Instructions: Please go to Out Patient testing on 2018 around 800AM to get an x-ray done before you go see Dr. Kumar. The office is sending the order over to out patient testing at the [facility]. Referrals: Raheem Kumar MD [Partnered Physician] - 02/18/19 9:15 am Christina Cazares MD [Primary Care Provider] - 01/29/19 10:30 am
[2019-01-26] MEDS ORDERED: Sucralfate 1 GM TABLET PO PRN (11:18)
[2019-01-26] MEDS: ALPRAZolam 0.5 MG TABLET PO PRN ×2 (13:51→21:47)
[2019-01-27] MEDS: Ipratropium/Albuterol Neb 3 ML IH SCH ×6 (00:06→20:03)
[2019-01-27] MEDS: Acyclovir 200 MG CAPSULE PO SCH ×6 (00:14→23:49)
[2019-01-27] MEDS: *HR* Heparin 5,000 UNIT/ML VIAL SQ SCH ×3 (05:43→21:38)
[2019-01-27] MEDS: *HR* OxyCODONE/APAP 10/325 TABLET PO PRN (05:43)
[2019-01-27] MEDS: ALPRAZolam 0.5 MG TABLET PO PRN (05:43)
[2019-01-27 05:47] LABS: Basophils % 0.2 %; Eosinophils # 0.5 K/mcL (0.0-0.6); Eosinophils % 2.8 %; Hematocrit 31.5 % (35.3-44.9); Hemoglobin 10.3 g/dL (11.5-15.4); Immature Granulocytes % 1.3 % (0-4); Lymphocytes # 2.4 K/mcL (0.6-4.6); Lymphocytes % 12.4 %; Mean Corpuscular HGB Conc 32.7 g/dL (31.6-35.5); Mean Corpuscular Volume 94.9 fL (83.0-100.0); Mean Platelet Volume 9.4 fL (9.4-12.4); Monocytes # 1.7 K/mcL (0.0-1.3); Monocytes % 8.9 %; Neutrophils # 14.4 K/mcL (1.6-8.9); Platelet Count 349 K/mcL (140-400); Red Blood Count 3.32 M/mcL (3.82-4.97); Red Cell Distribution Width 16.3 % (11.5-14.5); Segmented Neutrophils % 74.4 %; White Blood Count 19.3 K/mcL (4.3-11.1)
[2019-01-27 05:58] LABS: BUN/Creatinine Ratio 29 (6-26); Blood Urea Nitrogen 16 mg/dL (6-20); Calcium 8.1 mg/dL (8.6-10.3); Carbon Dioxide 29 mEq/L (23-29); Chloride 98 mEq/L (98-107); Glucose 89 mg/dL (70-105); Osmolality,Calculated 275 (280-300); Sodium 132 mEq/L (136-145); eGFR For African Americans > 60 (> 60); eGFR For Non-African Americans > 60 (> 60)
[2019-01-27] MEDS: Sennosides/Docusate Sodium TABLET PO SCH ×2 (07:33→21:38)
[2019-01-27] MEDS: amLODIPine 5 MG TABLET PO SCH (07:33)
[2019-01-27] MEDS: Diltiazem CD (24hr) 180 MG CAPSULE PO SCH (07:34)
[2019-01-27] MEDS: Gabapentin 300 MG CAPSULE PO SCH ×3 (07:34→21:38)
[2019-01-27] MEDS: Nicotine 21 MG PATCH.TD24 TD SCH (07:34)
[2019-01-27] MEDS: Aspirin Enteric Coated 81 MG Tablet PO SCH (07:34)
[2019-01-27] MEDS: MetroNIDAZOLE 500 MG/100 ML 500 MG/100 ML BAG IVPB SCH ×3 (07:34→23:52)
--- NOTE | 2019-01-27 07:34 | Internal Med Progress Note ---
<Jonathan Madsen - Last Filed: 01/27/19 10:30> Hospitalist Progress Note - Encounter Date of Encounter: 01/27/19 Time of Encounter: 07:31 - Subjective Interval History: Patient seen and examined resting comfortably in bed. Patient reports "belching" and would like to try Carafate. Chest tube remained in place connected to suction. Her pain regimen was increased today due to ongoing pain. Cardiothoracic surgery following, anticipate possible discharge Monday or Monday. - Exam Vitals: Temp Pulse Resp BP Pulse Ox 97.9 F 93 18 141/85 97 01/27/19 07:13 01/27/19 07:13 01/27/19 07:13 01/27/19 07:13 01/27/19 07:13 Exam: General: no acute distress, A&AX3, cachectic HEENT: Atraumatic, Normocephaly, mucous membranes dry Neck: supple, Full ROM, trachea midline Cardiac: RRR , S1+. S2+ Lungs: decreased breath sounds on left, chest tube dressing C/D/I, no wheezing Abdomen: Soft, Non-Tender, no organomegaly, +bowel sounds Extremities: No Clubbing, No Cyanosis,or edema, Normal Pulses Skin: intact, Normal color, chest tube dressing C/D/I, ecchymosis over left flank Psychiatric: normal affect, normal mood Nuero: alert and oriented X3, no focal deficits - Assessment and Plan (1) Pneumonia Current Visit: Yes Status: Acute Assessment and Plan: CXR 01/21 revealed stable left sided pneumothorax with increasing right basilar atelectasis/PNA CXR 01/25 revealed Decreased size of the left-sided pneumothorax. Pulmonary edema. Sputum culture revealed many epithelial cells. Continue Cefipime day 7 of 10 Encourage incentive spirometry as tolerated (2) Acute hypoxemic respiratory failure Current Visit: Yes Status: Acute Assessment and Plan: S/P LLL lobectomy with squamous cell lung cancer and likely PNA and CHF exacerbation she is currently on 2 liters of oxygen Continue Cefipime for 10 days total Continue Predisolone 20 mg PO daily Continue diuresis as needed Continue to monitor respiratory status and wean from oxygen as able. Patient was not previously on oxygen at home. (3) Essential hypertension Current Visit: No Status: Chronic Assessment and Plan: Blood pressure stable. Continue Cardizem 180 PO daily andAmlodipine to 10 mg daily. (4) Congestive heart failure (CHF) Current Visit: Yes Status: Acute Assessment and Plan: Acute on chronic HFpEF Previous echo dated 12/15/17 shows dialstolic dysfunction with EF of 60-65% and severe aortic regurg Pt has since had aortic valve replacement Continue diuresis as needed (5) Squamous cell lung cancer Current Visit: Yes Status: Acute Assessment and Plan: left lower lobe lobectomy on 01/17 CT guided needle biopsy demonstrated SCC on 12/18/18 Lung path demonstrates SCC without involvement of lymph nodes Outpatient follow-up (6) Current chronic use of systemic steroids Current Visit: Yes Status: Acute Assessment and Plan: Continue prednisone (7) Oral herpes simplex infection Current Visit: Yes Status: Acute Assessment and Plan: Continue acyclovir. (8) Depression Current Visit: No Status: Chronic Assessment and Plan: Continue home meds (9) Anemia Current Visit: Yes Status: Acute Assessment and Plan: Normocytic anemia in the setting of acute blood loss/ recent left lung resection Iron studies reviewed. Continue close monitoring. (10) Hyponatremia Current Visit: Yes Status: Acute Assessment and Plan: Normovolemic hyponatremia. Improving. Continue monitoring (11) Chronically on opiate therapy Current Visit: Yes Status: Chronic Assessment and Plan: Patient has drug seeking behavior. Continue pain control per cardiothoracic surgery. PT/OT consulted. (12) DVT prophylaxis Current Visit: Yes Status: Acute Assessment and Plan: Heparin SubQ - Time Spent with Patient Total time spent is greater than 50% in coordination of care (as documented) at patient's floor/unit and/or counseling patient: Internal Medicine: Result - Labs CBC & Chem 7: 01/27/19 05:19 01/27/19 05:19 Labs: Short CBC 01/27/19 Range/Units 05:19 WBC 19.3 H (4.3-11.1) K/mcL Hgb 10.3 L (11.5-15.4) g/dL Hct 31.5 L (35.3-44.9) % Plt Count 349 (140-400) K/mcL Neutrophils # 14.4 H (1.6-8.9) K/mcL BMP 01/27/19 05:19 Sodium 132 L Potassium 4.0 Chloride 98 Carbon Dioxide 29 BUN 16 Creatinine 0.56 L Glucose 89 Calcium 8.1 L - ABG Interpretation ABG results: ABG ABG pH 7.39 pH Units (7.32-7.45) 01/20/19 08:17 ABG pCO2 45 mmHg (35-45) 01/20/19 08:17 ABG pO2 67 mmHg (85-104) L 01/20/19 08:17 ABG O2 Saturation 93 % (95-98) L 01/20/19 08:17 - Pulse Oximetry Interpretation Digit-Finger Pulse Oximetry Readin (On ambient air) Consult Discharge Plan - Plan Additional Instructions: Please go to Out Patient testing on 2018 around 800AM to get an x-ray done before you go see Dr. Kumar. The office is sending the order over to out patient testing at the main hospital. Referrals: Raheem Kumar MD [Partnered Physician] - 02/18/19 9:15 am Christina Cazares MD [Primary Care Provider] - 01/29/19 10:30 am <Yoni Bone - Last Filed: 01/27/19 14:09> Hospitalist Progress Note - Encounter Date of Encounter: 01/27/19 - Exam Vitals: Temp Pulse Resp BP Pulse Ox 98.3 F 99 18 129/68 89 01/27/19 11:51 01/27/19 11:51 01/27/19 11:51 01/27/19 11:51 01/27/19 11:51 - Assessment and Plan (1) Essential hypertension Current Visit: No Status: Chronic (2) Depression Current Visit: No Status: Chronic (3) Acute hypoxemic respiratory failure Current Visit: Yes Status: Acute (4) Pneumonia Current Visit: Yes Status: Acute (5) Current chronic use of systemic steroids Current Visit: Yes Status: Acute (6) DVT prophylaxis Current Visit: Yes Status: Acute (7) Congestive heart failure (CHF) Current Visit: Yes Status: Acute (8) Anemia Current Visit: Yes Status: Acute (9) Squamous cell lung cancer Current Visit: Yes Status: Acute (10) Oral herpes simplex infection Current Visit: Yes Status: Acute (11) Hyponatremia Current Visit: Yes Status: Acute - Time Spent with Patient Total time spent is greater than 50% in coordination of care (as documented) at patient's floor/unit and/or counseling patient: Internal Medicine: Result - Labs CBC & Chem 7: 07/21/19 05:19 01/27/19 05:19 Labs: Short CBC 01/27/19 Range/Units 05:19 WBC 19.3 H (4.3-11.1) K/mcL Hgb 10.3 L (11.5-15.4) g/dL Hct 31.5 L (35.3-44.9) % Plt Count 349 (140-400) K/mcL Neutrophils # 14.4 H (1.6-8.9) K/mcL BMP 01/27/19 05:19 Sodium 132 L Potassium 4.0 Chloride 98 Carbon Dioxide 29 BUN 16 Creatinine 0.56 L Glucose 89 Calcium 8.1 L - ABG Interpretation ABG results: ABG ABG pH 7.39 pH Units (7.32-7.45) 01/20/19 08:17 ABG pCO2 45 mmHg (35-45) 01/20/19 08:17 ABG pO2 67 mmHg (85-104) L 01/20/19 08:17 ABG O2 Saturation 93 % (95-98) L 01/20/19 08:17 - Attending Attestation I examined this patient and my medical decision-making was reviewed with the Resident Physician on 01/27/19. I agree with the documented findings, disposition and treatment plan as described except to the extent set forth below. Ms Tran is currently admitted for lung resection. We are managing chronic issues and pneumonia. Ms Tran says she was up at night moving around. No fever or chills. Pain about the same. Exam: Alert Comfortable now. NC. Mucus membranes day. Neck supple. Heart not tachy. No wheeze. Decreased breath sounds. ABd soft. No edema. Moves all extremities equally. No rash. Plan: Continue IV abx. FUrther plan per CTS. _ <CaleJonathan - Last Filed: 01/27/19 10:30> (1) Pneumonia Qualifiers: Pneumonia type: due to unspecified organism Laterality: right Lung location: middle lobe of lung Qualified Code(s): J18.1 - Lobar pneumonia, unspecified organism (4) Congestive heart failure (CHF) Qualifiers: Heart failure type: diastolic Heart failure chronicity: acute on chronic Qualified Code(s): I50.33 - Acute on chronic diastolic (congestive) heart failure (5) Squamous cell lung cancer Qualifiers: Laterality: left Qualified Code(s): C34.92 - Malignant neoplasm of unspecified part of left bronchus or lung (8) Depression Qualifiers: Depression Type: unspecified Qualified Code(s): F32.9 - Major depressive disorder, single episode, unspecified (9) Anemia Qualifiers: Anemia type: unspecified type Qualified Code(s): D64.9 - Anemia, unspecified <Yoni Bone - Last Filed: 01/27/19 14:09> (2) Depression Qualifiers: Depression Type: unspecified Qualified Code(s): F32.9 - Major depressive disorder, single episode, unspecified (4) Pneumonia Qualifiers: Pneumonia type: due to unspecified organism Laterality: right Lung location: middle lobe of lung Qualified Code(s): J18.1 - Lobar pneumonia, unspecified organism (7) Congestive heart failure (CHF) Qualifiers: Heart failure type: diastolic Heart failure chronicity: acute on chronic Qualified Code(s): I50.33 - Acute on chronic diastolic (congestive) heart failure (8) Anemia Qualifiers: Anemia type: unspecified type Qualified Code(s): D64.9 - Anemia, unspecified (9) Squamous cell lung cancer Qualifiers: Laterality: left Qualified Code(s): C34.92 - Malignant neoplasm of unspecified part of left bronchus or lung
[2019-01-27] MEDS: Cefepime HCl 2,000 MG in Water for inj. (sterile) 20 ML IVP SCH ×2 (07:38→21:37)
--- NOTE | 2019-01-27 09:17 | Cardiothoracic Progress Note ---
Date of Encounter: 01/27/19 Time of Encounter: 09:12 - Assessment and plan (1) Cancer of lower lobe of left lung Current Visit: Yes Status: Acute The assessment and plan as outlined above was discussed with the patient and/or family members who expressed understanding and agreement. All questions were answered. chest tube to suction. instructed patient to ambulate. rounded with nurse daughter accused us of dropping the patient on the floor, which did not happen daughter accused us of lying about the path report which changed from frozen sec tion to permanent and communicated last week to patient and family (2) Essential hypertension Current Visit: No Status: Chronic The assessment and plan as outlined above was discussed with the patient and/or family members who expressed understanding and agreement. All questions were answered. continue home meds (3) Chronic pain Current Visit: No Status: Chronic The assessment and plan as outlined above was discussed with the patient and/or family members who expressed understanding and agreement. All questions were answered. add ibuprofen Qualifiers: Chronic pain type: chronic pain syndrome Qualified Code(s): G89.4 - Chronic pain syndrome (4) Depression Current Visit: No Status: Chronic The assessment and plan as outlined above was discussed with the patient and/or family members who expressed understanding and agreement. All questions were answered. Qualifiers: Depression Type: unspecified Qualified Code(s): F32.9 - Major depressive disorder, single episode, unspecified (5) Oral herpes simplex infection Current Visit: Yes Status: Acute The assessment and plan as outlined above was discussed with the patient and/or family members who expressed understanding and agreement. All questions were answered. start oral acyclovir - Subjective Interval history: pain Vital Signs, Last 4 Hours Temp Pulse Resp BP Pulse Ox 01/27/19 07:41 18 98 01/27/19 07:13 97.9 F 93 18 141/85 97 Oxgyen Flow Rate Oxygen Flow Rate (LPM) 2 Clinical Data, last 8 Hours Output, Chest Tube Drainage 0 Amount [Left Lateral Chest #1] Output, Chest Tube Drainage 0 Amount [Left Lateral Chest #1] Weight 01/25/19 01/26/19 01/27/19 23:59 23:59 23:59 Weight 42.4 kg 41.2 kg 43.2 kg - Physical Examination General: Conversant, No Apparent Distress HEENT: Atraumatic, Normocephaly Cardiac: Reg Rate and Rhythm, Normal S1 and S2 Incision: No signs of infection Chest tubes: Minimal drainage, Air leak Lungs: Decreased breath sounds Neuro: Alert and responsive, No focal deficits noted, Cranial nerves intact - Labs 01/27/19 05:19 01/27/19 05:19 Lab Results, Last 24 hours 01/27/19 01/27/19 05:19 05:19 WBC 19.3 H Hgb 10.3 L Hct 31.5 L Plt Count 349 Sodium 132 L Potassium 4.0 Chloride 98 Carbon Dioxide 29 BUN 16 Creatinine 0.56 L Glucose 89 Calcium 8.1 L Consult Discharge Plan - Plan Additional Instructions: Please go to Out Patient testing on 2018 around 800AM to get an x-ray done before you go see Dr. Kumar. The office is sending the order over to out patient testing at the main hospital. Referrals: Raheem Kumar MD [Partnered Physician] - 02/18/19 9:15 am Christina Cazares MD [Primary Care Provider] - 01/29/19 10:30 am
[2019-01-27] MEDS: Ibuprofen 200 MG TABLET PO SCH ×2 (12:28→17:31)
[2019-01-27] MEDS: *HR* OxyCODONE/APAP 10/325 TABLET PO SCH ×4 (12:29→23:49)
[2019-01-28] MEDS: Ipratropium/Albuterol Neb 3 ML IH SCH ×7 (00:03→23:09)
[2019-01-28] MEDS: Ibuprofen 200 MG TABLET PO SCH ×4 (00:04→16:52)
[2019-01-28 03:57] LABS: Hematocrit 29.7 % (35.3-44.9); Hemoglobin 9.8 g/dL (11.5-15.4); Mean Corpuscular Hemoglobin 31.5 pg (28.0-33.3); Mean Corpuscular Volume 95.5 fL (83.0-100.0); Mean Platelet Volume 9.2 fL (9.4-12.4); Platelet Count 325 K/mcL (140-400); Red Blood Count 3.11 M/mcL (3.82-4.97); Red Cell Distribution Width 16.7 % (11.5-14.5); White Blood Count 22.3 K/mcL (4.3-11.1)
[2019-01-28] MEDS: *HR* OxyCODONE/APAP 10/325 TABLET PO SCH ×5 (04:06→20:00)
[2019-01-28 04:17] LABS: BUN/Creatinine Ratio 28 (6-26); Blood Urea Nitrogen 17 mg/dL (6-20); Calcium 8.1 mg/dL (8.6-10.3); Carbon Dioxide 25 mEq/L (23-29); Chloride 99 mEq/L (98-107); Glucose 84 mg/dL (70-105); Osmolality,Calculated 275 (280-300); Potassium 4.1 mEq/L (3.5-5.1); Sodium 132 mEq/L (136-145); eGFR For African Americans > 60 (> 60); eGFR For Non-African Americans > 60 (> 60)
[2019-01-28] MEDS: *HR* Heparin 5,000 UNIT/ML VIAL SQ SCH ×3 (04:54→20:00)
[2019-01-28] MEDS: ALPRAZolam 0.5 MG TABLET PO PRN (04:54)
[2019-01-28] MEDS: amLODIPine 5 MG TABLET PO SCH (08:04)
[2019-01-28] MEDS: Diltiazem CD (24hr) 180 MG CAPSULE PO SCH (08:04)
[2019-01-28] MEDS: Aspirin Enteric Coated 81 MG Tablet PO SCH (08:05)
[2019-01-28] MEDS: Sennosides/Docusate Sodium TABLET PO SCH ×2 (08:05→20:00)
[2019-01-28] MEDS: MetroNIDAZOLE 500 MG/100 ML 500 MG/100 ML BAG IVPB SCH (08:05)
[2019-01-28] MEDS: Gabapentin 300 MG CAPSULE PO SCH ×3 (08:05→20:00)
[2019-01-28] MEDS: Nicotine 21 MG PATCH.TD24 TD SCH (08:06)
--- NOTE | 2019-01-28 08:28 | Internal Med Progress Note ---
<Yoni Bone - Last Filed: 01/28/19 14:44> Hospitalist Progress Note - Encounter Date of Encounter: 01/28/19 - Exam Vitals: Temp Pulse Resp BP Pulse Ox 98.0 F 95 16 140/76 94 01/28/19 11:16 01/28/19 11:16 01/28/19 11:27 01/28/19 11:16 01/28/19 11:27 - Assessment and Plan (1) Essential hypertension Current Visit: No Status: Chronic (2) Depression Current Visit: No Status: Chronic (3) Acute hypoxemic respiratory failure Current Visit: Yes Status: Acute (4) Pneumonia Current Visit: Yes Status: Acute (5) Current chronic use of systemic steroids Current Visit: Yes Status: Acute (6) DVT prophylaxis Current Visit: Yes Status: Acute (7) Congestive heart failure (CHF) Current Visit: Yes Status: Acute (8) Anemia Current Visit: Yes Status: Acute (9) Squamous cell lung cancer Current Visit: Yes Status: Acute (10) Oral herpes simplex infection Current Visit: Yes Status: Acute (11) Hyponatremia Current Visit: Yes Status: Acute - Time Spent with Patient Total time spent is greater than 50% in coordination of care (as documented) at patient's floor/unit and/or counseling patient: Internal Medicine: Result - Labs CBC & Chem 7: 01/28/19 03:47 01/28/19 03:47 Labs: Short CBC 01/28/19 Range/Units 03:47 WBC 22.3 H (4.3-11.1) K/mcL Hgb 9.8 L (11.5-15.4) g/dL Hct 29.7 L (35.3-44.9) % Plt Count 325 (140-400) K/mcL BMP 01/28/19 03:47 Sodium 132 L Potassium 4.1 Chloride 99 Carbon Dioxide 25 BUN 17 Creatinine 0.61 Glucose 84 Calcium 8.1 L - ABG Interpretation ABG results: ABG ABG pH 7.39 pH Units (7.32-7.45) 01/20/19 08:17 ABG pCO2 45 mmHg (35-45) 01/20/19 08:17 ABG pO2 67 mmHg (85-104) L 01/20/19 08:17 ABG O2 Saturation 93 % (95-98) L 01/20/19 08:17 - Impressions Impressions Chest X-Ray 01/28/19 08:00 IMPRESSION: No change in size of pleural gas collection on the left ;however, sign rib there is increased left-sided effusion and left lung consolidation D/ / Ryder Sheets MD / Ryder Sheets MD Interpreting Provider: Ryder Sheets MD Consult Discharge Plan - Plan Additional Instructions: Please go to Out Patient testing on 2018 around 800AM to get an x-ray done before you go see Dr. Kumar. The office is sending the order over to out patient testing at the main hospital. Referrals: Raheem Kumar MD [Partnered Physician] - 02/18/19 9:15 am Christina Cazares MD [Primary Care Provider] - 02/05/19 10:30 am - Attending Attestation I examined this patient and my medical decision-making was reviewed with the Resident Physician on 01/28/19. I agree with the documented findings, disposition and treatment plan as described except to the extent set forth below. Ms Tran is admitted s/p thoracotomy and resection. We are following for pneumonia and chronic conditions. Ms Tran is doing OK. Complaining of pain. WBC increased today. No diarrhea. No other new symptoms. Exam: Alert. Comfortable. Mucus membranes dry. NC. Not tachy. No edema. Moves all extremities. Diminished breath sounds. Plan: Continue IV abx. Consider restart IV Vanc in light of increasing WBC and CXR findings. <Odin Feng I - Last Filed: 01/28/19 18:11> Hospitalist Progress Note - Encounter Date of Encounter: 01/28/19 Time of Encounter: 08:10 - Subjective Interval History: Miss Tran was seen and examined to day . she is doing better , she still has pain but no fever or chills . able to eat the breakfast and that was considered a plus for her , she is able to walk too . she denies nause but has belching that is responding well to sucralfate - Exam Vitals: Temp Pulse Resp BP Pulse Ox 97.9 F 88 16 120/65 94 01/28/19 07:33 01/28/19 07:33 01/28/19 07:33 01/28/19 07:33 01/28/19 07:33 Exam: General: no acute distress, A&AX3, cachectic HEENT: Atraumatic, Normocephaly, mucous membranes dry Neck: supple, Full ROM, trachea midline Cardiac: RRR , S1+. S2+ Lungs: decreased breath sounds on left, chest tube attached to suction , no wheezing Abdomen: Soft, Non-Tender, no organomegaly, +bowel sounds Extremities: No Clubbing, No Cyanosis,or edema, Normal Pulses Skin: intact, Normal color, ecchymosis over left flank Psychiatric: normal affect, normal mood Nuero: alert and oriented X3, no focal deficits - Assessment and Plan (1) Acute hypoxemic respiratory failure Current Visit: Yes Status: Acute Assessment and Plan: CXR 01/21 revealed stable left sided pneumothorax with increasing right basilar atelectasis/PNA CXR 01/25 revealed Decreased size of the left-sided pneumothorax. Pulmonary edema. Sputum culture revealed many epithelial cells. Continue Cefipime day 9 of 10 Encourage incentive spirometry as tolerated (2) Pneumonia Current Visit: Yes Status: Acute Assessment and Plan: S/P LLL lobectomy with squamous cell lung cancer and likely PNA and CHF exacerbation she is currently on room air oxygen Continue Cefipime for 10 days total Continue Predisolone 20 mg PO daily Continue diuresis as needed Continue to monitor respiratory status (3) Congestive heart failure (CHF) Current Visit: Yes Status: Acute Assessment and Plan: Acute on chronic HFpEF Previous echo dated 12/15/17 shows dialstolic dysfunction with EF of 60-65% and severe aortic regurg Pt has since had aortic valve replacement Continue diuresis as needed (4) Squamous cell lung cancer Current Visit: Yes Status: Acute Assessment and Plan: eft lower lobe lobectomy on 01/17 CT guided needle biopsy demonstrated SCC on 12/18/18 Lung path demonstrates SCC without involvement of lymph nodes Outpatient follow-up (5) Pneumothorax, left Current Visit: Yes Status: Acute (6) Oral herpes simplex infection Current Visit: Yes Status: Acute Assessment and Plan: Continue acyclovir. (7) Essential hypertension Current Visit: No Status: Chronic Assessment and Plan: Blood pressure stable. Continue Cardizem 180 PO daily andAmlodipine to 10 mg daily. (8) Depression Current Visit: No Status: Chronic Assessment and Plan: Continue home meds (9) DVT prophylaxis Current Visit: Yes Status: Acute Assessment and Plan: Heparin SubQ (10) Anemia Current Visit: Yes Status: Acute Assessment and Plan: Normocytic anemia in the setting of acute blood loss/ recent left lung resection Iron studies reviewed. Continue close monitoring. - Time Spent with Patient Total time spent is greater than 50% in coordination of care (as documented) at patient's floor/unit and/or counseling patient: Internal Medicine: Result - Labs CBC & Chem 7: 01/28/19 03:47 01/28/19 03:47 Labs: Short CBC 01/28/19 Range/Units 03:47 WBC 22.3 H (4.3-11.1) K/mcL Hgb 9.8 L (11.5-15.4) g/dL Hct 29.7 L (35.3-44.9) % Plt Count 325 (140-400) K/mcL BMP 01/28/19 03:47 Sodium 132 L Potassium 4.1 Chloride 99 Carbon Dioxide 25 BUN 17 Creatinine 0.61 Glucose 84 Calcium 8.1 L - ABG Interpretation ABG results: ABG ABG pH 7.39 pH Units (7.32-7.45) 01/20/19 08:17 ABG pCO2 45 mmHg (35-45) 01/20/19 08:17 ABG pO2 67 mmHg (85-104) L 01/20/19 08:17 ABG O2 Saturation 93 % (95-98) L 01/20/19 08:17 - Impressions Impressions Chest X-Ray 01/28/19 08:00 IMPRESSION: No change in size of pleural gas collection on the left ;however, sign rib there is increased left-sided effusion and left lung consolidation D/ / Ryder Sheets MD / Ryder Sheets MD Interpreting Provider: Ryder Sheets MD <Angelito Bonein A - Last Filed: 01/28/19 14:44> (2) Depression Qualifiers: Depression Type: unspecified Qualified Code(s): F32.9 - Major depressive disorder, single episode, unspecified (4) Pneumonia Qualifiers: Pneumonia type: due to unspecified organism Laterality: right Lung location: middle lobe of lung Qualified Code(s): J18.1 - Lobar pneumonia, unspecified organism (7) Congestive heart failure (CHF) Qualifiers: Heart failure type: diastolic Heart failure chronicity: acute on chronic Qualified Code(s): I50.33 - Acute on chronic diastolic (congestive) heart failure (8) Anemia Qualifiers: Anemia type: unspecified type Qualified Code(s): D64.9 - Anemia, unspecified (9) Squamous cell lung cancer Qualifiers: Laterality: left Qualified Code(s): C34.92 - Malignant neoplasm of unspecified part of left bronchus or lung <Odin Feng I - Last Filed: 01/28/19 18:11> (2) Pneumonia Qualifiers: Pneumonia type: due to unspecified organism Laterality: right Lung location: middle lobe of lung Qualified Code(s): J18.1 - Lobar pneumonia, unspecified organism (3) Congestive heart failure (CHF) Qualifiers: Heart failure type: diastolic Heart failure chronicity: acute on chronic Qualified Code(s): I50.33 - Acute on chronic diastolic (congestive) heart failure (4) Squamous cell lung cancer Qualifiers: Laterality: left Qualified Code(s): C34.92 - Malignant neoplasm of unspecified part of left bronchus or lung (8) Depression Qualifiers: Depression Type: unspecified Qualified Code(s): F32.9 - Major depressive disorder, single episode, unspecified (10) Anemia Qualifiers: Anemia type: unspecified type Qualified Code(s): D64.9 - Anemia, unspecified
[2019-01-28] MEDS: Acyclovir 200 MG CAPSULE PO SCH ×4 (08:29→20:00)
[2019-01-28] MEDS: Cefepime HCl 2,000 MG in Water for inj. (sterile) 20 ML IVP SCH (12:02)
--- NOTE | 2019-01-28 13:31 | Cardiothoracic Progress Note ---
Date of Encounter: 01/28/19 Time of Encounter: 13:31 - Assessment and plan (1) Cancer of lower lobe of left lung Current Visit: Yes Status: Acute The assessment and plan as outlined above was discussed with the patient and/or family members who expressed understanding and agreement. All questions were answered. chest tube to suction. instructed patient to ambulate. rounded with nurse daughter accused us of dropping the patient on the floor, which did not happen daughter accused us of lying about the path report which changed from frozen sec tion to permanent and communicated last week to patient and family (2) Essential hypertension Current Visit: No Status: Chronic The assessment and plan as outlined above was discussed with the patient and/or family members who expressed understanding and agreement. All questions were answered. continue home meds (3) Chronic pain Current Visit: No Status: Chronic The assessment and plan as outlined above was discussed with the patient and/or family members who expressed understanding and agreement. All questions were answered. add ibuprofen Qualifiers: Chronic pain type: chronic pain syndrome Qualified Code(s): G89.4 - Chronic pain syndrome (4) Depression Current Visit: No Status: Chronic The assessment and plan as outlined above was discussed with the patient and/or family members who expressed understanding and agreement. All questions were answered. Qualifiers: Depression Type: unspecified Qualified Code(s): F32.9 - Major depressive disorder, single episode, unspecified (5) Oral herpes simplex infection Current Visit: Yes Status: Acute The assessment and plan as outlined above was discussed with the patient and/or family members who expressed understanding and agreement. All questions were answered. start oral acyclovir - Subjective Interval history: pain Vital Signs, Last 4 Hours Temp Pulse Resp BP Pulse Ox 01/28/19 11:27 16 94 01/28/19 11:16 98.0 F 95 16 140/76 94 Oxgyen Flow Rate Oxygen Flow Rate (LPM) 4 Clinical Data, last 8 Hours Output, Chest Tube Drainage 50 Amount [Left Lateral Chest #1] Weight 01/26/19 01/27/19 01/28/19 23:59 23:59 23:59 Weight 41.2 kg 43.2 kg 43.9 kg - Physical Examination General: Conversant, No Apparent Distress HEENT: Atraumatic, Normocephaly Cardiac: Reg Rate and Rhythm, Normal S1 and S2 Incision: No signs of infection, Dry/intact dressing Chest tubes: Minimal drainage, Air leak Neuro: Alert and responsive, No focal deficits noted, Cranial nerves intact, Motor nerves intact - Labs 01/28/19 03:47 01/28/19 03:47 Lab Results, Last 24 hours 01/28/19 01/28/19 03:47 03:47 WBC 22.3 H Hgb 9.8 L Hct 29.7 L Plt Count 325 Sodium 132 L Potassium 4.1 Chloride 99 Carbon Dioxide 25 BUN 17 Creatinine 0.61 Glucose 84 Calcium 8.1 L Consult Discharge Plan - Plan Additional Instructions: Please go to Out Patient testing on 2018 around 800AM to get an x-ray done before you go see Dr. Kumar. The office is sending the order over to out patient testing at the [facility]. Referrals: Raheem Kumar MD [Partnered Physician] - 02/18/19 9:15 am Christina Cazares MD [Primary Care Provider] - 02/05/19 10:30 am
[2019-01-28] MEDS: Cefdinir 300 MG CAPSULE PO SCH (20:00)
[2019-01-29] MEDS: *HR* OxyCODONE/APAP 10/325 TABLET PO SCH ×6 (00:58→20:18)
[2019-01-29] MEDS: Ibuprofen 200 MG TABLET PO SCH ×4 (00:58→16:28)
[2019-01-29] MEDS: Acyclovir 200 MG CAPSULE PO SCH ×5 (00:59→20:22)
[2019-01-29] MEDS: ALPRAZolam 0.5 MG TABLET PO PRN ×2 (03:32→20:19)
[2019-01-29] MEDS: Ipratropium/Albuterol Neb 3 ML IH SCH ×5 (03:43→20:21)
[2019-01-29] MEDS: *HR* Heparin 5,000 UNIT/ML VIAL SQ SCH ×3 (06:11→20:19)
[2019-01-29] MEDS: Cefdinir 300 MG CAPSULE PO SCH ×2 (08:07→20:19)
[2019-01-29] MEDS: Diltiazem CD (24hr) 180 MG CAPSULE PO SCH (08:07)
[2019-01-29] MEDS: Gabapentin 300 MG CAPSULE PO SCH ×3 (08:09→20:19)
[2019-01-29] MEDS: Sennosides/Docusate Sodium TABLET PO SCH ×2 (08:10→20:19)
[2019-01-29] MEDS: amLODIPine 5 MG TABLET PO SCH (08:10)
[2019-01-29] MEDS: Nicotine 21 MG PATCH.TD24 TD SCH (08:11)
--- NOTE | 2019-01-29 08:25 | Internal Med Progress Note ---
<Yoni Bone - Last Filed: 01/29/19 13:02> Hospitalist Progress Note - Encounter Date of Encounter: 01/29/19 - Exam Vitals: Temp Pulse Resp BP Pulse Ox 98.2 F 103 16 122/70 96 01/29/19 12:03 01/29/19 12:03 01/29/19 12:03 01/29/19 12:03 01/29/19 12:03 - Assessment and Plan (1) Essential hypertension Current Visit: No Status: Chronic (2) Depression Current Visit: No Status: Chronic (3) Acute hypoxemic respiratory failure Current Visit: Yes Status: Acute (4) Pneumonia Current Visit: Yes Status: Acute (5) Current chronic use of systemic steroids Current Visit: Yes Status: Acute (6) DVT prophylaxis Current Visit: Yes Status: Acute (7) Congestive heart failure (CHF) Current Visit: Yes Status: Chronic (8) Anemia Current Visit: Yes Status: Acute (9) Squamous cell lung cancer Current Visit: Yes Status: Acute (10) Oral herpes simplex infection Current Visit: Yes Status: Acute (11) Hyponatremia Current Visit: Yes Status: Acute - Time Spent with Patient Total time spent is greater than 50% in coordination of care (as documented) at patient's floor/unit and/or counseling patient: Internal Medicine: Result - Labs CBC & Chem 7: 01/29/19 08:44 01/29/19 08:44 Labs: Short CBC 01/29/19 Range/Units 08:44 WBC 23.7 H (4.3-11.1) K/mcL Hgb 10.4 L (11.5-15.4) g/dL Hct 32.4 L (35.3-44.9) % Plt Count 303 (140-400) K/mcL Neutrophils # 18.3 H (1.6-8.9) K/mcL BMP 01/29/19 08:44 Sodium 133 L Potassium 4.1 Chloride 100 Carbon Dioxide 27 BUN 12 Creatinine 0.57 L Glucose 93 Calcium 8.3 L - ABG Interpretation ABG results: ABG ABG pH 7.39 pH Units (7.32-7.45) 01/20/19 08:17 ABG pCO2 45 mmHg (35-45) 01/20/19 08:17 ABG pO2 67 mmHg (85-104) L 01/20/19 08:17 ABG O2 Saturation 93 % (95-98) L 01/20/19 08:17 Consult Discharge Plan - Plan Additional Instructions: Please go to Out Patient testing on 2018 around 700AM to get an x-ray done before you go see Dr. Kumar. The office is sending the order over to out patient testing at the main hospital. Referrals: Raheem Kumar MD [Partnered Physician] - 02/11/19 8:00 am Christina Cazares MD [Primary Care Provider] - 02/05/19 10:30 am - Attending Attestation I examined this patient and my medical decision-making was reviewed with the Resident Physician on 01/29/19. I agree with the documented findings, disposition and treatment plan as described except to the extent set forth below. Ms Tran is currently admitted s/p lung resection. We are following for pneumonia and medical issues. Ms Tran is doing OK. No fever. WBC up more today. No new GI issues. Exam: Alert. Comfortable. Mucus membranes dry. NC. Neck supple. Not tachycardic. No edema Plan: Concern with increasing WBC after stopping Vancomycin. Add Doxycycline to Cefdinir to complete course. Anticipate d/c tomorrow. <Odin Feng I - Last Filed: 01/29/19 13:40> Hospitalist Progress Note - Encounter Date of Encounter: 01/29/19 Time of Encounter: 08:30 - Subjective Interval History: Miss Tran was seen and examined to day . . she was using the incentive spirometer . she is doing better , she still has mild pain at left chest but no fever or chills . able to eat , she is able to walk too . she denies nause but has belching that is responding well to sucralfate .No diarrhea. No other new symptoms.she is started on new antibiotic cefdinir and doxycycline - Exam Vitals: Temp Pulse Resp BP Pulse Ox 98.0 F 93 16 130/72 94 01/29/19 07:53 01/29/19 07:53 01/29/19 07:53 01/29/19 07:53 01/29/19 07:53 Exam: General: no acute distress, A&AX3, cachectic HEENT: Atraumatic, Normocephaly, mucous membranes dry Neck: supple, Full ROM, trachea midline Cardiac: RRR , S1+. S2+ Lungs: decreased breath sounds on left, chest tube attached to suction 80 ml since yesterday afternoon , no wheezing Abdomen: Soft, Non-Tender, no organomegaly, +bowel sounds Extremities: No Clubbing, No Cyanosis,or edema, Normal Pulses Skin: intact, Normal color, ecchymosis over left flank Psychiatric: normal affect, normal mood Nuero: alert and oriented X3, no focal deficits - Assessment and Plan (1) Acute hypoxemic respiratory failure Current Visit: Yes Status: Acute Assessment and Plan: CXR 01/21 revealed stable left sided pneumothorax with increasing right basilar atelectasis/PNA CXR 01/25 revealed Decreased size of the left-sided pneumothorax. Pulmonary edema. CXR 01/27 show increase pnumothorax and the size of left lobe consolidation Sputum culture revealed many epithelial cells. Continued Cefipime for 9 days , now on day 2 cefdinir Encourage incentive spirometry as tolerated (2) Pneumonia Current Visit: Yes Status: Acute Assessment and Plan: S/P LLL lobectomy with squamous cell lung cancer and likely PNA and CHF exacerbation she is currently on room air oxygen , her vitals are stable . condition improved CXR 01/27 show increase pnumothorax and the size of left lobe consolidation Sputum culture revealed many epithelial cells. Continued Cefipime for 9 days , now on day 2 cefdinir and we start her on do xycycline foe MRSA coverage Continue to monitor respiratory status (3) Congestive heart failure (CHF) Current Visit: Yes Status: Chronic Assessment and Plan: Acute on chronic HFpEF Previous echo dated 12/15/17 shows dialstolic dysfunction with EF of 60-65% and severe aortic regurg Pt has since had aortic valve replacement Continue diuresis as needed (4) Squamous cell lung cancer Current Visit: Yes Status: Acute Assessment and Plan: left lower lobe lobectomy on 01/17 CT guided needle biopsy demonstrated SCC on 12/18/18 Lung path demonstrates SCC without involvement of lymph nodes Outpatient follow-up (5) Pneumothorax, left Current Visit: Yes Status: Acute Assessment and Plan: patient still has pnumothorax she is still om suction chest tube with 80 ml since yesterday afternoon (6) Oral herpes simplex infection Current Visit: Yes Status: Acute Assessment and Plan: Continue acyclovir. (7) Essential hypertension Current Visit: No Status: Chronic Assessment and Plan: Blood pressure stable. Continue Cardizem 180 PO daily andAmlodipine to 10 mg daily. (8) Depression Current Visit: No Status: Chronic (9) Anemia Current Visit: Yes Status: Acute Assessment and Plan: Normocytic anemia in the setting of acute blood loss/ recent left lung resection today hemoglobin is 9.8 Iron studies reviewed. Continue close monitoring. DVT Prophylaxis: sub q heparin - Time Spent with Patient Total time spent is greater than 50% in coordination of care (as documented) at patient's floor/unit and/or counseling patient: Internal Medicine: Result - Labs CBC & Chem 7: 01/29/19 08:44 01/29/19 08:44 - ABG Interpretation ABG results: ABG ABG pH 7.39 pH Units (7.32-7.45) 01/20/19 08:17 ABG pCO2 45 mmHg (35-45) 01/20/19 08:17 ABG pO2 67 mmHg (85-104) L 01/20/19 08:17 ABG O2 Saturation 93 % (95-98) L 01/20/19 08:17 <Yoni Bone - Last Filed: 01/29/19 13:02> (2) Depression Qualifiers: Depression Type: unspecified Qualified Code(s): F32.9 - Major depressive disorder, single episode, unspecified (4) Pneumonia Qualifiers: Pneumonia type: due to unspecified organism Laterality: right Lung location: middle lobe of lung Qualified Code(s): J18.1 - Lobar pneumonia, unspecified organism (7) Congestive heart failure (CHF) Qualifiers: Heart failure type: diastolic Heart failure chronicity: chronic Qualified Code(s): I50.32 - Chronic diastolic (congestive) heart failure (8) Anemia Qualifiers: Anemia type: other cause Other causes of anemia: chronic disease, neoplastic Qualified Code(s): D63.0 - Anemia in neoplastic disease (9) Squamous cell lung cancer Qualifiers: Laterality: left Qualified Code(s): C34.92 - Malignant neoplasm of unspecified part of left bronchus or lung <PingLuisaмарина I - Last Filed: 01/29/19 13:40> (2) Pneumonia Qualifiers: Pneumonia type: due to unspecified organism Laterality: right Lung location: middle lobe of lung Qualified Code(s): J18.1 - Lobar pneumonia, unspecified organism (3) Congestive heart failure (CHF) Qualifiers: Heart failure type: diastolic Heart failure chronicity: chronic Qualified Code(s): I50.32 - Chronic diastolic (congestive) heart failure (4) Squamous cell lung cancer Qualifiers: Laterality: left Qualified Code(s): C34.92 - Malignant neoplasm of unspecified part of left bronchus or lung (8) Depression Qualifiers: Depression Type: unspecified Qualified Code(s): F32.9 - Major depressive disorder, single episode, unspecified (9) Anemia Qualifiers: Anemia type: other cause Other causes of anemia: chronic disease, neoplastic
[2019-01-29 09:48] LABS: Basophils % 0.2 %; Eosinophils # 0.7 K/mcL (0.0-0.6); Hematocrit 32.4 % (35.3-44.9); Hemoglobin 10.4 g/dL (11.5-15.4); Immature Granulocytes % 1.1 % (0-4); Lymphocytes # 3.2 K/mcL (0.6-4.6); Lymphocytes % 13.6 %; Mean Corpuscular HGB Conc 32.1 g/dL (31.6-35.5); Mean Corpuscular Hemoglobin 31.3 pg (28.0-33.3); Mean Corpuscular Volume 97.6 fL (83.0-100.0); Mean Platelet Volume 10.5 fL (9.4-12.4); Monocytes # 1.2 K/mcL (0.0-1.3); Monocytes % 5.1 %; Neutrophils # 18.3 K/mcL (1.6-8.9); Platelet Count 303 K/mcL (140-400); Red Blood Count 3.32 M/mcL (3.82-4.97); Red Cell Distribution Width 17.6 % (11.5-14.5); White Blood Count 23.7 K/mcL (4.3-11.1)
[2019-01-29 10:07] LABS: BUN/Creatinine Ratio 21 (6-26); Blood Urea Nitrogen 12 mg/dL (8-23); Calcium 8.3 mg/dL (8.6-10.3); Carbon Dioxide 27 mEq/L (23-29); Chloride 100 mEq/L (98-107); Glucose 93 mg/dL (70-105); Osmolality,Calculated 275 (280-300); Potassium 4.1 mEq/L (3.5-5.1); Sodium 133 mEq/L (136-145); eGFR For African Americans > 60 (> 60); eGFR For Non-African Americans > 60 (> 60)
[2019-01-29] MEDS: Aspirin Enteric Coated 81 MG Tablet PO SCH (12:01)
[2019-01-29] MEDS: Doxycycline 100 MG CAPSULE PO SCH ×2 (12:34→20:18)
--- NOTE | 2019-01-29 12:57 | Physician Discharge Referral ---
Home Health/Hosp Referral Info Transfer to: Home Health Attending Provider: surinder Provider in Charge Post Discharge: PCP - Diagnosis (1) Cancer of lower lobe of left lung Priority: Primary Status: Acute (2) Essential hypertension Priority: Secondary Status: Chronic (3) Chronic pain Priority: Secondary Status: Chronic (4) Depression Priority: Secondary Status: Chronic (5) Oral herpes simplex infection Priority: Secondary Status: Acute - Respiratory Orders Smoking Cessation: Smoking cessation has been advised. For more information, call the [place] Tobacco Quit Line at 3-971-CTBF-NOW. - Dressing/Wound Care Site: left chest wall. change dressings every other day Type of Dressing/Treatments w/Frequency: 4 x 4 gauze - Diet/Nutrition Diet/Nutrition Orders: Regular - Activity Activity Orders: Up ad ruddy - Services Needed Following services are medically necessary services: Nursing, Physical Therapy - Transfer Medications Home Medications: Albuterol Sulfate [Proair Hfa] 2 puff IH Q6H PRN 09/13/18 [History] Aspirin [Lo-Dose Aspirin EC] 81 mg PO DAILY 09/13/18 [History] Omeprazole [PriLOSEC] 40 mg PO DAILY 09/13/18 [History] Oxycodone HCl/Acetaminophen [Percocet 10-325 mg Tablet] 1 each PO Q6H PRN 09/13/18 [History] Tizanidine HCl [Zanaflex] 4 mg PO HS PRN 09/13/18 [History] Azithromycin [Azithromycin 6-Tab Pack] 250 mg PO PER PKG DI #6 tab 01/09/19 [Rx] predniSONE [PredniSONE] 10 mg PO DAILY #21 tablet 01/09/19 [Rx] Amlodipine Besylate 5 mg PO QAM 01/17/19 [History] Dexlansoprazole [Dexilant] 60 mg PO DAILY 01/17/19 [History] Diltiazem HCl [Tiazac] 180 mg PO QAM 01/17/19 [History] Escitalopram [Lexapro] 20 mg PO DAILY 01/17/19 [History] Meclizine HCl [Verticalm] 25 mg PO PRN PRN 01/17/19 [History] Tiotropium [place] [Spiriva Respimat] 2 puff PO DAILY 01/17/19 [History] Allergies/Adverse Reactions: Allergy/AdvReac Type Severity Reaction Status Date / Time Penicillins AdvReac Rash Verified 01/17/19 11:27 Certification: Further, I certify that my clinical findings support that this patient is homebound (i.e. absences from home require considerable and taxing effort and are for medical reasons or tenriism services or infrequently or short duration when for other reasons) because: Homebound Reason: Patient requires assistance of a person or device to safely leave home, Absences from home are contraindicated except to recieve medical care, Post-surgery restriction and or conditions limit ability to leave home, Leaving home requires considerable and taxing effort due to condition, Altered mental status requiring supervision when leaving home, Severity of cardiac or pulmonary status limits activity tolerance Attestation: My signature below is to certify that this patient is under my care and that I, or nurse practitioner, or a physician's program assistant working with me, has a ubbo-un-airt encounter with this patient.
--- NOTE | 2019-01-29 12:59 | Cardiothoracic Progress Note ---
Date of Encounter: 01/29/19 Time of Encounter: 12:58 - Assessment and plan (1) Cancer of lower lobe of left lung Current Visit: Yes Status: Acute The assessment and plan as outlined above was discussed with the patient and/or family members who expressed understanding and agreement. All questions were answered. place chest tube to mini express. chest xray in am. if chest xray stable, home with home care. (2) Essential hypertension Current Visit: No Status: Chronic The assessment and plan as outlined above was discussed with the patient and/or family members who expressed understanding and agreement. All questions were answered. continue home meds (3) Chronic pain Current Visit: No Status: Chronic The assessment and plan as outlined above was discussed with the patient and/or family members who expressed understanding and agreement. All questions were answered. add ibuprofen Qualifiers: Chronic pain type: chronic pain syndrome Qualified Code(s): G89.4 - Chronic pain syndrome (4) Depression Current Visit: No Status: Chronic The assessment and plan as outlined above was discussed with the patient and/or family members who expressed understanding and agreement. All questions were answered. Qualifiers: Depression Type: unspecified Qualified Code(s): F32.9 - Major depressive disorder, single episode, unspecified (5) Oral herpes simplex infection Current Visit: Yes Status: Acute The assessment and plan as outlined above was discussed with the patient and/or family members who expressed understanding and agreement. All questions were answered. start oral acyclovir - Subjective Interval history: pain Vital Signs, Last 4 Hours Temp Pulse Resp BP Pulse Ox 01/29/19 12:03 98.2 F 103 16 122/70 96 01/29/19 11:17 16 95 Oxgyen Flow Rate Oxygen Flow Rate (LPM) 4 Clinical Data, last 8 Hours Output, Chest Tube Drainage 20 Amount [Left Lateral Chest #1] Output, Urine Amount 300 Weight 01/27/19 01/28/19 01/29/19 23:59 23:59 23:59 Weight 43.2 kg 43.9 kg - Physical Examination General: Conversant, No Apparent Distress HEENT: Atraumatic, Normocephaly Cardiac: Reg Rate and Rhythm, Normal S1 and S2 Incision: No signs of infection, Dry/intact dressing, Open to air Chest tubes: Minimal drainage, Air leak Lungs: Normal Breath Sounds Neuro: Alert and responsive, No focal deficits noted, Cranial nerves intact - Labs 01/29/19 08:44 01/29/19 08:44 Lab Results, Last 24 hours 01/29/19 01/29/19 08:44 08:44 WBC 23.7 H Hgb 10.4 L Hct 32.4 L Plt Count 303 Sodium 133 L Potassium 4.1 Chloride 100 Carbon Dioxide 27 BUN 12 Creatinine 0.57 L Glucose 93 Calcium 8.3 L Consult Discharge Plan - Plan Additional Instructions: Please go to Out Patient testing on 2018 around 800AM to get an x-ray done before you go see Dr. Kumar. The office is sending the order over to out patient testing at the [facility]. Referrals: Raheem Kumar MD [Partnered Physician] - 02/18/19 9:15 am Christina Cazares MD [Primary Care Provider] - 02/05/19 10:30 am
[2019-01-30] MEDS: Ipratropium/Albuterol Neb 3 ML IH SCH ×6 (00:45→20:20)
[2019-01-30] MEDS: *HR* OxyCODONE/APAP 10/325 TABLET PO SCH ×6 (01:38→21:12)
[2019-01-30] MEDS: Ibuprofen 200 MG TABLET PO SCH ×4 (01:38→16:35)
[2019-01-30] MEDS: Acyclovir 200 MG CAPSULE PO SCH ×6 (01:42→21:12)
[2019-01-30] MEDS: *HR* Heparin 5,000 UNIT/ML VIAL SQ SCH ×3 (04:59→21:11)
[2019-01-30 05:57] LABS: Basophils % 0.2 %; Eosinophils # 0.7 K/mcL (0.0-0.6); Eosinophils % 3.7 %; Hematocrit 28.5 % (35.3-44.9); Hemoglobin 9.2 g/dL (11.5-15.4); Immature Granulocytes % 1.3 % (0-4); Lymphocytes # 2.9 K/mcL (0.6-4.6); Lymphocytes % 14.5 %; Mean Corpuscular HGB Conc 32.3 g/dL (31.6-35.5); Mean Corpuscular Hemoglobin 31.1 pg (28.0-33.3); Mean Corpuscular Volume 96.3 fL (83.0-100.0); Mean Platelet Volume 10.3 fL (9.4-12.4); Monocytes # 1.2 K/mcL (0.0-1.3); Neutrophils # 14.7 K/mcL (1.6-8.9); Platelet Count 336 K/mcL (140-400); Red Blood Count 2.96 M/mcL (3.82-4.97); Red Cell Distribution Width 17.8 % (11.5-14.5); Segmented Neutrophils % 74.3 %; White Blood Count 19.7 K/mcL (4.3-11.1)
[2019-01-30 06:15] LABS: BUN/Creatinine Ratio 22 (6-26); Blood Urea Nitrogen 13 mg/dL (8-23); Calcium 8.4 mg/dL (8.6-10.3); Carbon Dioxide 26 mEq/L (23-29); Chloride 101 mEq/L (98-107); Glucose 108 mg/dL (70-105); Osmolality,Calculated 283 (280-300); Potassium 4.1 mEq/L (3.5-5.1); Sodium 136 mEq/L (136-145); eGFR For African Americans > 60 (> 60); eGFR For Non-African Americans > 60 (> 60)
--- NOTE | 2019-01-30 07:43 | Discharge Summary ---
Orders not resulted at time of discharge: Pending orders 01/30/19 08:00 XR chest 1V [XR] Routine Date of Encounter: 01/30/19 Time of Encounter: 07:39 - Discharge Diagnosis (1) Lung cancer Priority: Primary Status: Acute Qualifiers: Laterality: left Lung location: lower lobe of lung Qualified Code(s): C34.32 - Malignant neoplasm of lower lobe, left bronchus or lung - Hospital Course Hospital course: Ms. Tran is a 59 year old lady with COPD who was admitted to [facility] on 01/17/2019 for robotic left lower lobectomy. The pathology revealed a Stage IA squamous cell carcinoma. Postoperative course was complicated by respiratory insufficiency which gradually improved. The patient had a persistent left lateral pneumothorax and was discharged home on POD #13 with a mini express chest tube device. She will see Dr. Raheem Kumar in the office for follow-up and chest tube removal. - Time Spent with Patient Total time spent providing and/or coordinating discharge services: - Discharge Medications Prescriptions: New Doxycycline 100 mg PO BID #14 capsule Gabapentin [Neurontin] 300 mg PO TID #42 capsule Nicotine Patch [Nicoderm] 21 mg TD DAILY #30 patch.td24 Cefdinir [Omnicef] 300 mg PO BID #14 capsule Continued Omeprazole [PriLOSEC] 40 mg PO DAILY Albuterol Sulfate [Proair Hfa] 2 puff IH Q6H PRN PRN Reason: Shortness Of Breath Aspirin [Lo-Dose Aspirin EC] 81 mg PO DAILY Tizanidine HCl [Zanaflex] 4 mg PO HS PRN PRN Reason: Muscle Spasm Azithromycin [Azithromycin 6-Tab Pack] 250 mg PO PER PKG DI #6 tab predniSONE [PredniSONE] 10 mg PO DAILY #21 tablet Amlodipine Besylate 5 mg PO QAM Dexlansoprazole [Dexilant] 60 mg PO DAILY Diltiazem HCl [Tiazac] 180 mg PO QAM Escitalopram [Lexapro] 20 mg PO DAILY Meclizine HCl [Verticalm] 25 mg PO PRN PRN PRN Reason: Dizziness Tiotropium [place] [Spiriva Respimat] 2 puff PO DAILY Oxycodone HCl/Acetaminophen [Percocet 10-325 mg Tablet] 1 each PO Q6H PRN 7 Days #28 tablet PRN Reason: Pain Home Medications: Albuterol Sulfate [Proair Hfa] 2 puff IH Q6H PRN 09/13/18 [History] Aspirin [Lo-Dose Aspirin EC] 81 mg PO DAILY 09/13/18 [History] Omeprazole [PriLOSEC] 40 mg PO DAILY 09/13/18 [History] Tizanidine HCl [Zanaflex] 4 mg PO HS PRN 09/13/18 [History] Azithromycin [Azithromycin 6-Tab Pack] 250 mg PO PER PKG DI #6 tab 01/09/19 [Rx] predniSONE [PredniSONE] 10 mg PO DAILY #21 tablet 01/09/19 [Rx] Amlodipine Besylate 5 mg PO QAM 01/17/19 [History] Dexlansoprazole [Dexilant] 60 mg PO DAILY 01/17/19 [History] Diltiazem HCl [Tiazac] 180 mg PO QAM 01/17/19 [History] Escitalopram [Lexapro] 20 mg PO DAILY 01/17/19 [History] Meclizine HCl [Verticalm] 25 mg PO PRN PRN 01/17/19 [History] Tiotropium [place] [Spiriva Respimat] 2 puff PO DAILY 01/17/19 [History] Cefdinir [Omnicef] 300 mg PO BID #14 capsule 01/30/19 [Rx] Doxycycline 100 mg PO BID #14 capsule 01/30/19 [Rx] Gabapentin [Neurontin] 300 mg PO TID #42 capsule 01/30/19 [Rx] Nicotine Patch [Nicoderm] 21 mg TD DAILY #30 patch.td24 01/30/19 [Rx] Oxycodone HCl/Acetaminophen [Percocet 10-325 mg Tablet] 1 each PO Q6H PRN 7 Days #28 tablet 01/30/19 [Rx] Allergies/Adverse Reactions: Allergy/AdvReac Type Severity Reaction Status Date / Time Penicillins AdvReac Rash Verified 01/17/19 11:27 Date of admission: 01/17/19 17:18 Primary care physician: Christina Cazares MD Consults: 01/20/19 02:09 Consult to Pulmonology [CONS] Routine Consulting Provider: [facility] Reason for Consult: pneumonia; respiratory failure Call Completed: No 01/27/19 10:29 Consult to Physical Therapy [CONS] Routine Comment: Evaluate, develop and implement POC Reason for Consult: Postop Does patient have active BEDREST order?: No Is patient medically & hemodynamically stable?: Yes Patient assessed for mobility or mobilized this visit?: No OT [Consult to Occupational Therapy] [CONS] Routine Comment: Evaluate, develop and implement POC Reason for Consult: Postop Does patient have active BEDREST order?: No Is patient medically & hemodynamically stable?: Yes Patient assessed for mobility or mobilized this visit?: No Procedure(s) Performed: 1. Robotic left lower lobectomy performed 01/17/2019. Discharging clinician: Valerie So Anticipated date of discharge: 01/30/19 Physical Examination Vital Signs, Last 4 Hours Temp Pulse Resp BP Pulse Ox 01/30/19 07:27 18 95 01/30/19 07:18 98.0 F 85 18 118/64 89 01/30/19 05:02 98.2 F 88 17 101/53 93 01/30/19 04:12 16 92 General: Conversant, No Apparent Distress HEENT: Atraumatic, Normocephaly, Trachea midline Neck: No JVD, Normal carotid pulses Cardiac: Reg Rate and Rhythm, Normal S1 and S2, No Murmur Lungs: Decreased breath sounds Neuro: Alert and responsive, No focal deficits noted Vascular: Normal capillary refill Extremities: No Clubbing, No Cyanosis, No Edema - Patient Status Disposition: Home Health Service Condition: Good Functional capacity at discharge: independent ambulation Overall status at discharge: patient is progressing back to baseline - Discharge Instructions Follow Up With: Raheem Kumar MD [Partnered Physician] - 02/11/19 8:00 am Christina Cazares MD [Primary Care Provider] - 02/05/19 10:30 am - Diet and Activity Activity: no driving for four weeks, no lifting greater than 10 pounds for eight weeks Diet: advance to your usual diet
[2019-01-30] MEDS: Nicotine 21 MG PATCH.TD24 TD SCH (08:06)
[2019-01-30] MEDS: Sennosides/Docusate Sodium TABLET PO SCH ×2 (08:06→21:12)
[2019-01-30] MEDS: Cefdinir 300 MG CAPSULE PO SCH ×2 (08:07→21:11)
[2019-01-30] MEDS: Gabapentin 300 MG CAPSULE PO SCH ×3 (08:07→21:12)
[2019-01-30] MEDS: Aspirin Enteric Coated 81 MG Tablet PO SCH (08:07)
[2019-01-30] MEDS: Diltiazem CD (24hr) 180 MG CAPSULE PO SCH (08:07)
[2019-01-30] MEDS: amLODIPine 5 MG TABLET PO SCH (08:07)
[2019-01-30] MEDS: Doxycycline 100 MG CAPSULE PO SCH ×2 (08:07→21:11)
--- NOTE | 2019-01-30 11:04 | Internal Med Progress Note ---
<Odin Feng Marcelino - Last Filed: 01/30/19 13:03> Hospitalist Progress Note - Encounter Date of Encounter: 01/30/19 Time of Encounter: 08:10 - Subjective Interval History: Miss Tran was seen and examined to day . she is doing better and improving , she still has mild pain at left chest but no fever or chills . able to eat , she is able to walk too . she will be discharged home on cefidrin and doxycycline and mini express chest tube . - Exam Vitals: Temp Pulse Resp BP Pulse Ox 98.0 F 92 18 118/64 95 01/30/19 07:18 01/30/19 08:51 01/30/19 07:27 01/30/19 07:18 01/30/19 07:27 Exam: General: no acute distress, A&AX3, cachectic HEENT: Atraumatic, Normocephaly, mucous membranes dry Neck: supple, Full ROM, trachea midline Cardiac: RRR , S1+. S2+ Lungs: decreased breath sounds on left, no wheezing Abdomen: Soft, Non-Tender, no organomegaly, +bowel sounds Extremities: No Clubbing, No Cyanosis,or edema, Normal Pulses Skin: intact, Normal color, ecchymosis over left flank Psychiatric: normal affect, normal mood Nuero: alert and oriented X3, no focal deficits - Assessment and Plan (1) Acute hypoxemic respiratory failure Current Visit: Yes Status: Acute Assessment and Plan: patient developed acute respiratory failure CXR 01/21 revealed stable left sided pneumothorax with increasing right basilar atelectasis/PNA CXR 01/25 revealed Decreased size of the left-sided pneumothorax. Pulmonary edema. CXR 01/27 show increase pnumothorax and the size of left lobe consolidation Sputum culture revealed many epithelial cells. Continued Cefipime for 9 days , condition resolved . she is discharged home on cefidrine and doxyxycline (2) Pneumonia Current Visit: Yes Status: Acute Assessment and Plan: S/P LLL lobectomy with squamous cell lung cancer and likely PNA and CHF exacerbation she is currently on room air oxygen , her vitals are stable . condition improved , she is dischharged home according to CTS recommendation on cefdinir and doxycycline for MRSA coverage (3) Congestive heart failure (CHF) Current Visit: Yes Status: Chronic Assessment and Plan: Acute on chronic HFpEF Previous echo dated 12/15/17 shows dialstolic dysfunction with EF of 60-65% and severe aortic regurg Pt has since had aortic valve replacement continue home med and followup with PCP (4) Squamous cell lung cancer Current Visit: Yes Status: Acute Assessment and Plan: left lower lobe lobectomy on 01/17 CT guided needle biopsy demonstrated SCC on 12/18/18 Lung path demonstrates SCC without involvement of lymph nodes Outpatient follow-up (5) Pneumothorax, left Current Visit: Yes Status: Acute Assessment and Plan: patient still has pnumothorax she is is discharged home on mini express chest tube according to CTS recommendation (6) Oral herpes simplex infection Current Visit: Yes Status: Acute (7) Essential hypertension Current Visit: No Status: Chronic Assessment and Plan: her BP is stable , follow up with PCP (8) Depression Current Visit: No Status: Chronic (9) Anemia Current Visit: Yes Status: Acute Assessment and Plan: Normocytic anemia in the setting of acute blood loss/ recent left lung resection follow up with PCP - Time Spent with Patient Total time spent is greater than 50% in coordination of care (as documented) at patient's floor/unit and/or counseling patient: Internal Medicine: Result - Labs CBC & Chem 7: 01/30/19 04:41 01/30/19 04:41 Labs: Short CBC 01/30/19 Range/Units 04:41 WBC 19.7 H (4.3-11.1) K/mcL Hgb 9.2 L (11.5-15.4) g/dL Hct 28.5 L (35.3-44.9) % Plt Count 336 (140-400) K/mcL Neutrophils # 14.7 H (1.6-8.9) K/mcL BMP 01/30/19 04:41 Sodium 136 Potassium 4.1 Chloride 101 Carbon Dioxide 26 BUN 13 Creatinine 0.58 L Glucose 108 H Calcium 8.4 L - ABG Interpretation ABG results: ABG ABG pH 7.39 pH Units (7.32-7.45) 01/20/19 08:17 ABG pCO2 45 mmHg (35-45) 01/20/19 08:17 ABG pO2 67 mmHg (85-104) L 01/20/19 08:17 ABG O2 Saturation 93 % (95-98) L 01/20/19 08:17 - Impressions Impressions Chest X-Ray 01/30/19 08:00 IMPRESSION: Stable mild lateral left pneumothorax. D/ / 01/30/2019 07:54:05 Inder Shelton MD / kusum Interpreting Provider: Inder Shelton MD Consult Discharge Plan - Plan Additional Instructions: Please go to Out Patient testing on 2018 around 700AM to get an x-ray done before you go see Dr. Kumar. The office is sending the order over to out patient testing at the [facility]. Referrals: Raheem Kumar MD [Partnered Physician] - 02/11/19 8:00 am Christina Cazares MD [Primary Care Provider] - 02/05/19 10:30 am Prescriptions: Doxycycline 100 mg PO BID #14 capsule Gabapentin [Neurontin] 300 mg PO TID #42 capsule Nicotine Patch [Nicoderm] 21 mg TD DAILY #30 patch.td24 Cefdinir [Omnicef] 300 mg PO BID #14 capsule Oxycodone HCl/Acetaminophen [Percocet 10-325 mg Tablet] 1 each PO Q6H PRN 7 Days #28 tablet PRN Reason: Pain <Katina Beasley - Last Filed: 01/30/19 13:26> Hospitalist Progress Note - Encounter Date of Encounter: 01/30/19 - Exam Vitals: Temp Pulse Resp BP Pulse Ox 98.5 F 90 18 130/67 90 01/30/19 11:17 01/30/19 12:09 01/30/19 11:32 01/30/19 11:17 01/30/19 11:32 - Assessment and Plan (1) Essential hypertension Current Visit: No Status: Chronic (2) Depression Current Visit: No Status: Chronic (3) Acute hypoxemic respiratory failure Current Visit: Yes Status: Acute (4) Pneumonia Current Visit: Yes Status: Acute (5) Current chronic use of systemic steroids Current Visit: Yes Status: Acute (6) DVT prophylaxis Current Visit: Yes Status: Acute (7) Congestive heart failure (CHF) Current Visit: Yes Status: Chronic (8) Anemia Current Visit: Yes Status: Acute (9) Squamous cell lung cancer Current Visit: Yes Status: Acute (10) Oral herpes simplex infection Current Visit: Yes Status: Acute (11) Hyponatremia Current Visit: Yes Status: Acute - Time Spent with Patient Total time spent is greater than 50% in coordination of care (as documented) at patient's floor/unit and/or counseling patient: Internal Medicine: Result - Labs CBC & Chem 7: 01/30/19 04:41 01/30/19 04:41 Labs: Short CBC 01/30/19 Range/Units 04:41 WBC 19.7 H (4.3-11.1) K/mcL Hgb 9.2 L (11.5-15.4) g/dL Hct 28.5 L (35.3-44.9) % Plt Count 336 (140-400) K/mcL Neutrophils # 14.7 H (1.6-8.9) K/mcL BMP 01/30/19 04:41 Sodium 136 Potassium 4.1 Chloride 101 Carbon Dioxide 26 BUN 13 Creatinine 0.58 L Glucose 108 H Calcium 8.4 L - ABG Interpretation ABG results: ABG ABG pH 7.39 pH Units (7.32-7.45) 01/20/19 08:17 ABG pCO2 45 mmHg (35-45) 01/20/19 08:17 ABG pO2 67 mmHg (85-104) L 01/20/19 08:17 ABG O2 Saturation 93 % (95-98) L 01/20/19 08:17 - Impressions Impressions Chest X-Ray 01/30/19 08:00 IMPRESSION: Stable mild lateral left pneumothorax. D/ / 01/30/2019 07:54:05 Inder Shelton MD / kusum Interpreting Provider: Inder Shelton MD - Attending Attestation I examined this patient and my medical decision-making was reviewed with the Resident Physician Dr Feng. I agree with the documented findings, disposition and treatment plan as described except to the extent set forth below. Ms Tran is admitted s/p lung resection. Hospitalist team is consulted for pna and medical management awake, family at bedside. No sob, cough or wheezing. denies fevers or chills. CT surg has plan to dc today and she is happy to go to rehab gen- alert, awake,appears stated age cv- reg rate and rhythm, normal s1,s2 lungs- ctabl, no wheezing, rhonchi , normal resp effort neuro- AAOx3 Pna, organism unknown- would rec to cont cefdinir and doxy to complete course of abx Lung Cancer s/p lung resection/ Pneumothorax- post operative care, chest tube, and follow up as per CT surgery primary team Post Operative Blood loss anemia-asx, would have cbc checked at follow up to confirm resolution, remains hemodynamically stable dispo- plan is for inpt rehab as discussed with SW. They have requested a ECF referral form in lieu of [facility] referral form. We have taken the liberty of filling out this form <Odin Feng I - Last Filed: 01/30/19 13:03> (2) Pneumonia Qualifiers: Pneumonia type: due to unspecified organism Laterality: right Lung location: middle lobe of lung Qualified Code(s): J18.1 - Lobar pneumonia, unspecified organism (3) Congestive heart failure (CHF) Qualifiers: Heart failure type: diastolic Heart failure chronicity: chronic Qualified Code(s): I50.32 - Chronic diastolic (congestive) heart failure (4) Squamous cell lung cancer Qualifiers: Laterality: left Qualified Code(s): C34.92 - Malignant neoplasm of unspecified part of left bronchus or lung (8) Depression Qualifiers: Depression Type: unspecified Qualified Code(s): F32.9 - Major depressive disorder, single episode, unspecified (9) Anemia Qualifiers: Anemia type: other cause Other causes of anemia: chronic disease, neoplastic Qualified Code(s): D63.0 - Anemia in neoplastic disease <Katina Beasley - Last Filed: 01/30/19 13:26> (2) Depression Qualifiers: Depression Type: unspecified Qualified Code(s): F32.9 - Major depressive disorder, single episode, unspecified (4) Pneumonia Qualifiers: Pneumonia type: due to unspecified organism Laterality: right Lung location: middle lobe of lung Qualified Code(s): J18.1 - Lobar pneumonia, unspecified organism (7) Congestive heart failure (CHF) Qualifiers: Heart failure type: diastolic Heart failure chronicity: chronic Qualified Code(s): I50.32 - Chronic diastolic (congestive) heart failure (8) Anemia Qualifiers: Anemia type: other cause Other causes of anemia: chronic disease, neoplastic Qualified Code(s): D63.0 - Anemia in neoplastic disease (9) Squamous cell lung cancer Qualifiers: Laterality: left Qualified Code(s): C34.92 - Malignant neoplasm of unspecified part of left bronchus or lung
--- NOTE | 2019-01-30 13:29 | Physician Discharge Referral ---
[facility] Referral Info Provider in Charge after Transfer: PCP - Diagnosis (1) Essential hypertension Priority: Secondary Status: Chronic (2) Depression Priority: Secondary Status: Chronic (3) Acute hypoxemic respiratory failure Priority: Secondary Status: Resolved (4) Pneumonia Priority: Secondary Status: Acute (5) Current chronic use of systemic steroids Priority: Secondary Status: Chronic (6) DVT prophylaxis Priority: Secondary Status: Acute (7) Congestive heart failure (CHF) Priority: Secondary Status: Chronic (8) Anemia Priority: Secondary Status: Acute (9) Squamous cell lung cancer Priority: Primary Status: Acute (10) Oral herpes simplex infection Priority: Secondary Status: Acute (11) Hyponatremia Priority: Secondary Status: Resolved - Transfer Medications Prescriptions: Doxycycline 100 mg PO BID #14 capsule Gabapentin [Neurontin] 300 mg PO TID #42 capsule Nicotine Patch [Nicoderm] 21 mg TD DAILY #30 patch.td24 Cefdinir [Omnicef] 300 mg PO BID #14 capsule Oxycodone HCl/Acetaminophen [Percocet 10-325 mg Tablet] 1 each PO Q6H PRN 7 Days #28 tablet PRN Reason: Pain Home Medications: Albuterol Sulfate [Proair Hfa] 2 puff IH Q6H PRN 09/13/18 [History] Aspirin [Lo-Dose Aspirin EC] 81 mg PO DAILY 09/13/18 [History] Omeprazole [PriLOSEC] 40 mg PO DAILY 09/13/18 [History] Tizanidine HCl [Zanaflex] 4 mg PO HS PRN 09/13/18 [History] Azithromycin [Azithromycin 6-Tab Pack] 250 mg PO PER PKG DI #6 tab 01/09/19 [Rx] predniSONE [PredniSONE] 10 mg PO DAILY #21 tablet 01/09/19 [Rx] Amlodipine Besylate 5 mg PO QAM 01/17/19 [History] Dexlansoprazole [Dexilant] 60 mg PO DAILY 01/17/19 [History] Diltiazem HCl [Tiazac] 180 mg PO QAM 01/17/19 [History] Escitalopram [Lexapro] 20 mg PO DAILY 01/17/19 [History] Meclizine HCl [Verticalm] 25 mg PO PRN PRN 01/17/19 [History] Tiotropium [place] [Spiriva Respimat] 2 puff PO DAILY 01/17/19 [History] Cefdinir [Omnicef] 300 mg PO BID #14 capsule 01/30/19 [Rx] Doxycycline 100 mg PO BID #14 capsule 01/30/19 [Rx] Gabapentin [Neurontin] 300 mg PO TID #42 capsule 01/30/19 [Rx] Nicotine Patch [Nicoderm] 21 mg TD DAILY #30 patch.td24 01/30/19 [Rx] Oxycodone HCl/Acetaminophen [Percocet 10-325 mg Tablet] 1 each PO Q6H PRN 7 Days #28 tablet 01/30/19 [Rx] Allergies/Adverse Reactions: Allergy/AdvReac Type Severity Reaction Status Date / Time Penicillins AdvReac Rash Verified 01/17/19 11:27 - Respiratory Orders None Smoking Cessation: Smoking cessation has been advised. For more information, call the [place] Tobacco Quit Line at 0-139-AGAM-NOW. - Lab Orders Lab Orders: CBC (in 5 days) - Advance Directives Code Status: Full Code - Mobility Orders Ambulate - Rehabiliation Orders Rehab Potential: Good Rehab Orders: ROM Exercises, Evaluation for Physical Therapy, Evaluation for Occupational Therapy - Treatments List/Other: 4 x 4 gauze , left chest wall. change dressings every other day - Diet Orders Regular CERTIFICATION: I certify that the transfer of the above named patient to an Extended Care Facility is necessary for the continuing treatment of the diagnosis listed. The above information is true and accurate reflection of patient's current condition. Confidential - Redisclosure prohibited without a patient's written consent.
[2019-01-30] MEDS: ALPRAZolam 0.5 MG TABLET PO PRN ×2 (13:47→23:04)
[2019-01-31 01:55] LABS: Basophils % 0.2 %; Eosinophils # 0.7 K/mcL (0.0-0.6); Eosinophils % 4.2 %; Hematocrit 27.3 % (35.3-44.9); Hemoglobin 8.9 g/dL (11.5-15.4); Immature Granulocytes % 0.6 % (0-4); Lymphocytes # 2.8 K/mcL (0.6-4.6); Lymphocytes % 16.5 %; Mean Corpuscular HGB Conc 32.6 g/dL (31.6-35.5); Mean Corpuscular Hemoglobin 31.8 pg (28.0-33.3); Mean Corpuscular Volume 97.5 fL (83.0-100.0); Mean Platelet Volume 9.6 fL (9.4-12.4); Monocytes % 5.9 %; Neutrophils # 12.4 K/mcL (1.6-8.9); Platelet Count 337 K/mcL (140-400); Red Cell Distribution Width 17.8 % (11.5-14.5); Segmented Neutrophils % 72.6 %; White Blood Count 17.1 K/mcL (4.3-11.1)
[2019-01-31 02:14] LABS: BUN/Creatinine Ratio 21 (6-26); Blood Urea Nitrogen 13 mg/dL (8-23); Calcium 8.5 mg/dL (8.6-10.3); Carbon Dioxide 27 mEq/L (23-29); Chloride 101 mEq/L (98-107); Glucose 107 mg/dL (70-105); Osmolality,Calculated 279 (280-300); Potassium 4.1 mEq/L (3.5-5.1); Sodium 134 mEq/L (136-145); eGFR For African Americans > 60 (> 60); eGFR For Non-African Americans > 60 (> 60)
[2019-01-31] MEDS: Ipratropium/Albuterol Neb 3 ML IH SCH ×5 (03:59→15:17)
[2019-01-31] MEDS: *HR* OxyCODONE/APAP 10/325 TABLET PO SCH ×5 (04:14→15:26)
[2019-01-31] MEDS: Ibuprofen 200 MG TABLET PO SCH ×4 (04:14→17:22)
--- NOTE | 2019-01-31 06:05 | Cardiothoracic Progress Note ---
Date of Encounter: 01/31/19 Time of Encounter: 05:57 - Assessment and plan (1) Lung cancer Current Visit: No Status: Acute The patient has decided to go to inpatient rehabilitation as a bridge to home. Social work is currently assisting and this request. The assessment and plan as outlined above was discussed with the patient and/or family members who expressed understanding and agreement. All questions were answered. Qualifiers: Laterality: left Lung location: lower lobe of lung Qualified Code(s): C34.32 - Malignant neoplasm of lower lobe, left bronchus or lung - Subjective Procedure(s) Performed: POD#14 S/P Robotic left lower lobectomy Interval history: The patient remained hemodynamic stable overnight. She has no complaints. Vital Signs, Last 4 Hours Temp Pulse Resp BP Pulse Ox 01/31/19 05:38 97 01/31/19 04:11 98.3 F 103 18 133/63 90 01/31/19 04:02 18 90 Oxgyen Flow Rate Oxygen Flow Rate (LPM) 0 Weight 01/29/19 01/30/19 01/31/19 23:59 23:59 23:59 Weight 43.5 kg 44.5 kg - Physical Examination General: Conversant, No Apparent Distress Neck: No JVD, Normal carotid pulses Cardiac: Reg Rate and Rhythm, Normal S1 and S2, No Murmur Incision: No signs of infection, Dry/intact dressing Chest tubes: Minimal drainage, Other (Small air leak) Lungs: Normal Breath Sounds, No Wheeze, Rales, Rhonchi Neuro: Alert and responsive, No focal deficits noted Vascular: Normal capillary refill Extremities: No Clubbing, No Cyanosis, No Edema - Labs 01/31/19 01:35 01/31/19 01:35 Lab Results, Last 24 hours 01/30/19 01/31/19 01/31/19 04:41 01:35 01:35 WBC 17.1 H Hgb 8.9 L Hct 27.3 L Plt Count 337 Sodium 136 134 L Potassium 4.1 4.1 Chloride 101 101 Carbon Dioxide 26 27 BUN 13 13 Creatinine 0.58 L 0.63 Glucose 108 H 107 H Calcium 8.4 L 8.5 L Consult Discharge Plan - Plan Additional Instructions: Please go to Out Patient testing on 2018 around 700AM to get an x-ray done before you go see Dr. Kumar. The office is sending the order over to out patient testing at the main hospital. Referrals: Raheem Kumar MD [Partnered Physician] - 02/11/19 8:00 am Christina Cazares MD [Primary Care Provider] - 02/05/19 10:30 am Prescriptions: Doxycycline 100 mg PO BID #14 capsule Gabapentin [Neurontin] 300 mg PO TID #42 capsule Nicotine Patch [Nicoderm] 21 mg TD DAILY #30 patch.td24 Cefdinir [Omnicef] 300 mg PO BID #14 capsule Oxycodone HCl/Acetaminophen [Percocet 10-325 mg Tablet] 1 each PO Q6H PRN 7 Days #28 tablet PRN Reason: Pain
[2019-01-31] MEDS: *HR* Heparin 5,000 UNIT/ML VIAL SQ SCH ×2 (06:28→13:03)
--- NOTE | 2019-01-31 07:30 | Internal Med Progress Note ---
<Katina Beasley - Last Filed: 01/31/19 12:30> Hospitalist Progress Note - Encounter Date of Encounter: 01/31/19 - Exam Vitals: Temp Pulse Resp BP Pulse Ox 98.1 F 90 18 124/59 93 01/31/19 11:27 01/31/19 11:27 01/31/19 11:27 01/31/19 11:27 01/31/19 12:18 - Assessment and Plan (1) Essential hypertension Current Visit: No Status: Chronic (2) Depression Current Visit: No Status: Chronic (3) Acute hypoxemic respiratory failure Current Visit: Yes Status: Resolved (4) Pneumonia Current Visit: Yes Status: Acute (5) Current chronic use of systemic steroids Current Visit: Yes Status: Chronic (6) DVT prophylaxis Current Visit: Yes Status: Acute (7) Congestive heart failure (CHF) Current Visit: Yes Status: Chronic (8) Anemia Current Visit: Yes Status: Acute (9) Squamous cell lung cancer Current Visit: Yes Status: Acute (10) Oral herpes simplex infection Current Visit: Yes Status: Acute (11) Hyponatremia Current Visit: Yes Status: Resolved - Time Spent with Patient Total time spent is greater than 50% in coordination of care (as documented) at patient's floor/unit and/or counseling patient: Internal Medicine: Result - Labs CBC & Chem 7: 01/31/19 01:35 01/31/19 01:35 Labs: Short CBC 01/31/19 Range/Units 01:35 WBC 17.1 H (4.3-11.1) K/mcL Hgb 8.9 L (11.5-15.4) g/dL Hct 27.3 L (35.3-44.9) % Plt Count 337 (140-400) K/mcL Neutrophils # 12.4 H (1.6-8.9) K/mcL BMP 01/31/19 01:35 Sodium 134 L Potassium 4.1 Chloride 101 Carbon Dioxide 27 BUN 13 Creatinine 0.63 Glucose 107 H Calcium 8.5 L - ABG Interpretation ABG results: ABG ABG pH 7.39 pH Units (7.32-7.45) 01/20/19 08:17 ABG pCO2 45 mmHg (35-45) 01/20/19 08:17 ABG pO2 67 mmHg (85-104) L 01/20/19 08:17 ABG O2 Saturation 93 % (95-98) L 01/20/19 08:17 - Impressions Impressions Chest X-Ray 01/30/19 21:39 IMPRESSION: Left-sided chest tube is in unchanged position. No significant change in small left apical and lateral pneumothorax. D/ / 01/30/2019 22:57:32 Ran Miranda MD / antonietta Interpreting Provider: Ran Miranda MD Chest X-Ray 01/31/19 23:14 IMPRESSION: Persistent mild size left pneumothorax despite left-sided chest tube. Emphysematous changes with airspace disease in the right upper and lower lobes and some volume loss left lung base. D/ / 01/31/2019 08:01:05 Valente Oconnor MD / Stacy Perkins Interpreting Provider: Valente Oconnor MD Consult Discharge Plan - Plan Additional Instructions: Please go to Out Patient testing on 2018 around 700AM to get an x-ray done before you go see Dr. Kumar. The office is sending the order over to out patient testing at the main hospital. Referrals: Raheem Kumar MD [Partnered Physician] - 02/11/19 8:00 am Christina Cazares MD [Primary Care Provider] - 02/05/19 10:30 am Prescriptions: Doxycycline 100 mg PO BID #14 capsule Gabapentin [Neurontin] 300 mg PO TID #42 capsule Nicotine Patch [Nicoderm] 21 mg TD DAILY #30 patch.td24 Cefdinir [Omnicef] 300 mg PO BID #14 capsule Oxycodone HCl/Acetaminophen [Percocet 10-325 mg Tablet] 1 each PO Q6H PRN 7 Days #28 tablet PRN Reason: Pain - Attending Attestation I examined this patient and my medical decision-making was reviewed with the Resident Physician Dr Feng. I agree with the documented findings, disposition and treatment plan as described except to the extent set forth below. Ms Tran is admitted s/p lung resection. Hospitalist team is consulted for pna and medical management awake, family at bedside. feeling quite well. no sob, no pain with inspiration, eger for dc to rehab. gen- alert, awake,appears stated age cv- reg rate and rhythm, normal s1,s2 lungs- ctabl, normal resp effort on room air neuro- AAOx3 Pna, organism unknown- cont cefdinir and doxy to complete course of abx Lung Cancer s/p lung resection/ Pneumothorax- post operative care, and follow up as per CT surgery primary team Post Operative Blood loss anemia-asx, would have cbc checked at follow up to confirm resolution, remains hemodynamically stable dispo- plan is for inpt rehab as discharged by primary team and agree she is medically stable to do so <Odin Feng I - Last Filed: 01/31/19 14:45> Hospitalist Progress Note - Encounter Date of Encounter: 01/31/19 Time of Encounter: 08:30 - Subjective Interval History: today patient was seen and examined , she is doing well , able to eat and walk , no chest pain , no SOB , no fever or chills , no change in bowel motion or urination - Exam Vitals: Temp Pulse Resp BP Pulse Ox 98.3 F 97 18 133/63 90 01/31/19 04:11 01/31/19 05:38 01/31/19 04:11 01/31/19 04:11 01/31/19 04:11 Exam: General: no acute distress, A&AX3, cachectic HEENT: Atraumatic, Normocephaly, mucous membranes dry Neck: supple, Full ROM, trachea midline Cardiac: RRR , S1+. S2+ Lungs: normal breath sound bilaterally no wheezing , chest tube has minimal drainge , dressing intact Abdomen: Soft, Non-Tender, no organomegaly, +bowel sounds Extremities: No Clubbing, No Cyanosis,or edema, Normal Pulses Skin: intact, Normal color, ecchymosis over left flank Psychiatric: normal affect, normal mood Nuero: alert and oriented X3, no focal deficits - Assessment and Plan (1) Acute hypoxemic respiratory failure Current Visit: Yes Status: Resolved Assessment and Plan: condition resolved . she is currently on room air oxygen , her vitals are stable. she is ready to be discharged to in patient rehab (2) Pneumonia Current Visit: Yes Status: Acute Assessment and Plan: she was diagnosed with Pnumonia on 01/21 and CXR 01/21 revealed stable left sided pneumothorax with increasing right basilar atelectasis/PNA she is improving , her wbc are down trending , virtal stable , no fever no cough no SOB Continued Cefipime for 9 days , she is supposed to be discharged to in patient rehab with doxycycline and cefidrin for 7 days (3) Pneumothorax, left Current Visit: Yes Status: Acute Assessment and Plan: patient still has mild pnumothorax Chest X-Ray 01/31 :Persistent mild size left pneumothorax despite left-sided chest tube.Emphysematous changes with airspace disease in the right upper and lower lobes and some volume loss left lung base. she is on mini express chest tube according to CTS recommendation , there is very minimal drainge (4) Congestive heart failure (CHF) Current Visit: Yes Status: Chronic Assessment and Plan: Acute on chronic HFpEF Previous echo dated 12/15/17 shows dialstolic dysfunction with EF of 60-65% and severe aortic regurg ,Pt has since had aortic valve replacement she is not in acute distress now continue home med and followup with PCP (5) Squamous cell lung cancer Current Visit: Yes Status: Acute Assessment and Plan: left lower lobe lobectomy on 01/17 CT guided needle biopsy demonstrated SCC on 12/18/18 Lung path demonstrates SCC without involvement of lymph nodes Outpatient follow-up (6) Oral herpes simplex infection Current Visit: Yes Status: Acute (7) Essential hypertension Current Visit: No Status: Chronic Assessment and Plan: her BP is stable , follow up with PCP (8) Depression Current Visit: No Status: Chronic (9) Anemia Current Visit: Yes Status: Acute Assessment and Plan: Normocytic anemia in the setting of acute blood loss/ recent left lung resection follow up with PCP DVT Prophylaxis: sub q heparin - Time Spent with Patient Total time spent is greater than 50% in coordination of care (as documented) at patient's floor/unit and/or counseling patient: Internal Medicine: Result - Labs CBC & Chem 7: 01/31/19 01:35 01/31/19 01:35 Labs: Short CBC 01/31/19 Range/Units 01:35 WBC 17.1 H (4.3-11.1) K/mcL Hgb 8.9 L (11.5-15.4) g/dL Hct 27.3 L (35.3-44.9) % Plt Count 337 (140-400) K/mcL Neutrophils # 12.4 H (1.6-8.9) K/mcL BMP 01/31/19 01:35 Sodium 134 L Potassium 4.1 Chloride 101 Carbon Dioxide 27 BUN 13 Creatinine 0.63 Glucose 107 H Calcium 8.5 L - ABG Interpretation ABG results: ABG ABG pH 7.39 pH Units (7.32-7.45) 01/20/19 08:17 ABG pCO2 45 mmHg (35-45) 01/20/19 08:17 ABG pO2 67 mmHg (85-104) L 01/20/19 08:17 ABG O2 Saturation 93 % (95-98) L 01/20/19 08:17 - Impressions Impressions Chest X-Ray 01/30/19 08:00 IMPRESSION: Stable mild lateral left pneumothorax. D/ / 01/30/2019 07:54:05 Inder Shetlon MD / [email or web address] Interpreting Provider: Inder Shelton MD Chest X-Ray 01/30/19 21:39 IMPRESSION: Left-sided chest tube is in unchanged position. No significant change in small left apical and lateral pneumothorax. D/ / 01/30/2019 22:57:32 Ran Miranda MD / antonietta Interpreting Provider: Ran Miranda MD <Katina Beasley - Last Filed: 01/31/19 12:30> (2) Depression Qualifiers: Depression Type: unspecified Qualified Code(s): F32.9 - Major depressive disorder, single episode, unspecified (4) Pneumonia Qualifiers: Pneumonia type: due to unspecified organism Laterality: right Lung location: middle lobe of lung Qualified Code(s): J18.1 - Lobar pneumonia, unspecified organism (7) Congestive heart failure (CHF) Qualifiers: Heart failure type: diastolic Heart failure chronicity: chronic Qualified Code(s): I50.32 - Chronic diastolic (congestive) heart failure (8) Anemia Qualifiers: Anemia type: other cause Other causes of anemia: chronic disease, neoplastic Qualified Code(s): D63.0 - Anemia in neoplastic disease (9) Squamous cell lung cancer Qualifiers: Laterality: left Qualified Code(s): C34.92 - Malignant neoplasm of unspecified part of left bronchus or lung <Odin Feng I - Last Filed: 01/31/19 14:45> (2) Pneumonia Qualifiers: Pneumonia type: due to unspecified organism Laterality: right Lung location: middle lobe of lung Qualified Code(s): J18.1 - Lobar pneumonia, unspecified organism (4) Congestive heart failure (CHF) Qualifiers: Heart failure type: diastolic Heart failure chronicity: chronic Qualified Code(s): I50.32 - Chronic diastolic (congestive) heart failure (5) Squamous cell lung cancer Qualifiers: Laterality: left Qualified Code(s): C34.92 - Malignant neoplasm of unspecified part of left bronchus or lung (8) Depression Qualifiers: Depression Type: unspecified Qualified Code(s): F32.9 - Major depressive disorder, single episode, unspecified (9) Anemia Qualifiers: Anemia type: other cause Other causes of anemia: chronic disease, neoplastic Qualified Code(s): D63.0 - Anemia in neoplastic disease
[2019-01-31] MEDS: Nicotine 21 MG PATCH.TD24 TD SCH (08:51)
[2019-01-31] MEDS: Doxycycline 100 MG CAPSULE PO SCH (08:52)
[2019-01-31] MEDS: amLODIPine 5 MG TABLET PO SCH (08:52)
[2019-01-31] MEDS: Cefdinir 300 MG CAPSULE PO SCH (08:52)
[2019-01-31] MEDS: Acyclovir 200 MG CAPSULE PO SCH ×3 (08:52→15:26)
[2019-01-31] MEDS: Aspirin Enteric Coated 81 MG Tablet PO SCH (08:53)
[2019-01-31] MEDS: Sennosides/Docusate Sodium TABLET PO SCH (08:53)
[2019-01-31] MEDS: Diltiazem CD (24hr) 180 MG CAPSULE PO SCH (08:53)
[2019-01-31] MEDS: Gabapentin 300 MG CAPSULE PO SCH ×2 (08:53→14:15)
[2019-01-31 11:30] VITALS: BP 124/59
--- NOTE | 2019-01-31 14:27 | Physician Discharge Referral ---
Home Health/Hosp Referral Info Transfer to: Home Health Provider in Charge Post Discharge: PCP - Diagnosis (1) Chronic pain Priority: Primary Status: Chronic - Respiratory Orders Oxygen / L per min Smoking Cessation: Smoking cessation has been advised. For more information, call the [place] Tobacco Quit Line at 9-418-TOFR-NOW. - Diet/Nutrition Diet/Nutrition Orders: Regular - Activity Activity Orders: Up ad ruddy, Ambulate, Chair - Services Needed Following services are medically necessary services: Nursing, Home Health Aide, Physical Therapy, Occupational Therapy - Transfer Medications Prescriptions: Doxycycline 100 mg PO BID #14 capsule Gabapentin [Neurontin] 300 mg PO TID #42 capsule Nicotine Patch [Nicoderm] 21 mg TD DAILY #30 patch.td24 Cefdinir [Omnicef] 300 mg PO BID #14 capsule Oxycodone HCl/Acetaminophen [Percocet 10-325 mg Tablet] 1 each PO Q6H PRN 7 Days #28 tablet PRN Reason: Pain Home Medications: Albuterol Sulfate [Proair Hfa] 2 puff IH Q6H PRN 09/13/18 [History] Aspirin [Lo-Dose Aspirin EC] 81 mg PO DAILY 09/13/18 [History] Omeprazole [PriLOSEC] 40 mg PO DAILY 09/13/18 [History] Tizanidine HCl [Zanaflex] 4 mg PO HS PRN 09/13/18 [History] Azithromycin [Azithromycin 6-Tab Pack] 250 mg PO PER PKG DI #6 tab 01/09/19 [Rx] predniSONE [PredniSONE] 10 mg PO DAILY #21 tablet 01/09/19 [Rx] Amlodipine Besylate 5 mg PO QAM 01/17/19 [History] Dexlansoprazole [Dexilant] 60 mg PO DAILY 01/17/19 [History] Diltiazem HCl [Tiazac] 180 mg PO QAM 01/17/19 [History] Escitalopram [Lexapro] 20 mg PO DAILY 01/17/19 [History] Meclizine HCl [Verticalm] 25 mg PO PRN PRN 01/17/19 [History] Tiotropium [place] [Spiriva Respimat] 2 puff PO DAILY 01/17/19 [History] Cefdinir [Omnicef] 300 mg PO BID #14 capsule 01/30/19 [Rx] Doxycycline 100 mg PO BID #14 capsule 01/30/19 [Rx] Gabapentin [Neurontin] 300 mg PO TID #42 capsule 01/30/19 [Rx] Nicotine Patch [Nicoderm] 21 mg TD DAILY #30 patch.td24 01/30/19 [Rx] Oxycodone HCl/Acetaminophen [Percocet 10-325 mg Tablet] 1 each PO Q6H PRN 7 Days #28 tablet 01/30/19 [Rx] Allergies/Adverse Reactions: Allergy/AdvReac Type Severity Reaction Status Date / Time Penicillins AdvReac Rash Verified 01/17/19 11:27 Certification: Further, I certify that my clinical findings support that this patient is homebound (i.e. absences from home require considerable and taxing effort and are for medical reasons or shinto services or infrequently or short duration when for other reasons) because: Homebound Reason: Post-surgery restriction and or conditions limit ability to leave home Attestation: My signature below is to certify that this patient is under my care and that I, or nurse practitioner, or a physician's resident assistant working with me, has a [id number] encounter with this patient.
== END 2019-01-31 18:57 | DRG 120 ==
LOC: SAMDAY 10:18 → 2NNU 17:18 → SUATTDRO 17:18 → ICNU 01-20 03:05 → 2NNU 01-25 04:41
PROVIDERS: ADMIT Thoracic Surgery (Cardiothoracic Vascular Surgery); ATTEND Thoracic Surgery (Cardiothoracic Vascular Surgery)